=== PATIENT | female | born 1945 | race Caucasian/White ===

== ENCOUNTER → 2016-09-07 | Outpatient (CLI) | payer OTHER ==
[2016-09-07 07:36] LABS: BASO % 0.4 % (0.0-1.0); EOS # 0.2 10*3/uL (0.0-0.4); EOS % 2.1 % (1.0-4.0); HEMATOCRIT 38.1 % (37.0-47.0); HEMOGLOBIN 11.7 g/dl (12.0-16.0); IG # 0.1 10*3/uL (0.0-0.1); LYMPH # 1.2 10*3/uL (1.3-4.4); LYMPH % 10.9 % (27.0-41.0); MEAN CORPUSCULAR HGB 26.4 pg (27.0-31.0); MEAN CORPUSCULAR HGB CONC 30.7 g/dl (33.0-37.0); MEAN PLATELET VOLUME 11.1 fl (9.6-12.3); MONO % 9.2 % (3.0-9.0); NEUT # 8.4 10*3/uL (2.3-7.9); NEUT % 76.3 % (47.0-73.0); PLATELET COUNT AUTOMATED 184 10*3/uL (130-400); RED BLOOD COUNT 4.43 10*6/uL (4.10-5.10); RED CELL DISTRI WIDTH 15.3 % (0-14.5)
[2016-09-07 08:11] LABS: C-REACTIVE PROTEIN 1.09 MG/DL (0-0.3); EST GLOM FILT AFRICAN AMERICAN > 60 ml/min; SGOT/AST 13 IU/L (3-35); SGPT/ALT 18 U/L (12-78)
== END | disposition home or self-care (01) ==
LOC: LAB 07:14
PROVIDERS: Internal Medicine Rheumatology
DX: M05.79 Rheumatoid arthritis with rheumatoid factor of multiple sites without organ or systems involvement (principal); M79.1 Myalgia

== ENCOUNTER → 2016-09-09 | Outpatient (CLI) | payer OTHER | END | disposition home or self-care (01) | LOC: CARD 10:13 | DX: R94.31 Abnormal electrocardiogram [ECG] [EKG] (principal); R60.0 Localized edema ==

== ENCOUNTER → 2016-11-30 | Outpatient (CLI) | payer OTHER ==
[2016-11-30 09:22] LABS: BASO % 0.3 % (0.0-1.0); EOS # 0.1 10*3/uL (0.0-0.4); HEMATOCRIT 26.2 % (37.0-47.0); HEMOGLOBIN 7.7 g/dl (12.0-16.0); IG # 0.1 10*3/uL (0.0-0.1); LYMPH # 0.5 10*3/uL (1.3-4.4); LYMPH % 7.6 % (27.0-41.0); MEAN CELL VOLUME 91.9 fl (81.0-99.0); MEAN CORPUSCULAR HGB CONC 29.4 g/dl (33.0-37.0); MEAN PLATELET VOLUME 10.5 fl (9.6-12.3); MONO # 0.6 10*3/uL (0.1-1.0); MONO % 8.5 % (3.0-9.0); NEUT # 5.6 10*3/uL (2.3-7.9); NEUT % 81.4 % (47.0-73.0); PLATELET COUNT AUTOMATED 159 10*3/uL (130-400); RED BLOOD COUNT 2.85 10*6/uL (4.10-5.10); WHITE BLOOD COUNT 6.8 10*3/uL (4.8-10.8)
[2016-11-30 09:45] LABS: C-REACTIVE PROTEIN 0.44 MG/DL (0-0.3); EST GLOM FILT AFRICAN AMERICAN > 60 ml/min; SGOT/AST 10 IU/L (3-35); SGPT/ALT 11 U/L (12-78)
== END | disposition home or self-care (01) ==
LOC: LAB 08:55
PROVIDERS: Internal Medicine Rheumatology
DX: M05.79 Rheumatoid arthritis with rheumatoid factor of multiple sites without organ or systems involvement (principal); M79.1 Myalgia

== ENCOUNTER → 2016-12-04 | Outpatient (CLI) | payer OTHER ==
[2016-12-04 15:28] LABS: IRON 27 ug/dL (50-170); IRON SATURATION 7 %; UIBC 350 ug/dL (110-365)
== END | disposition home or self-care (01) ==
LOC: LAB 14:49
DX: R71.8 Other abnormality of red blood cells (principal); R76.8 Other specified abnormal immunological findings in serum

== ENCOUNTER → 2016-12-07 | Outpatient (CLI) | payer OTHER | END | disposition home or self-care (01) | LOC: LAB 13:33 | DX: R76.8 Other specified abnormal immunological findings in serum (principal); R71.8 Other abnormality of red blood cells ==

== ENCOUNTER → 2016-12-16 | Outpatient (CLI) | payer OTHER ==
[~2016-12-16] MED LIST: ALENDRONATE SOD35 M1 PO; ATENOLOL25 MG PO; CENTRUM FLAVO100 MCG PO; CINNAMON ALPHA1 EACH PO; CO Q-1010 M1 PO; FLAX SEED OIL1000 M2 PO; GABAPENTIN TAB600 MG PO; METHOTREXATE2.5 M1 PO; OXYBUTYNIN5 MG PO; PREDNISONE5 MG PO; PRINIVIL20 M1 PO; VITAMIN D31000 IU PO
[2016-12-16 08:50] VITALS: BP 106/40
[2016-12-17 08:13] VITALS: BP 100/39
[2016-12-18 08:05] VITALS: BP 105/37
== END | disposition home or self-care (01) ==
LOC: INJECTION 08:00
DX: D50.0 Iron deficiency anemia secondary to blood loss (chronic) (principal)

== ENCOUNTER → 2016-12-23 | Outpatient (CLI) | payer OTHER ==
[~2016-12-23] MED LIST changes: +HYDROCODONE BIT1 T11 PO; +NATURE'S BLEND F1 MG PO
[2016-12-23 10:03] LABS: HEMATOCRIT 30.2 % (37.0-47.0); HEMOGLOBIN 8.4 g/dl (12.0-16.0); MEAN CELL VOLUME 93.2 fl (81.0-99.0); MEAN CORPUSCULAR HGB 25.9 pg (27.0-31.0); MEAN CORPUSCULAR HGB CONC 27.8 g/dl (33.0-37.0); MEAN PLATELET VOLUME 12.1 fl (9.6-12.3); NUCLEATED RED BLOOD CELL 0.3 % (0.0-0.0); PLATELET COUNT AUTOMATED 155 10*3/uL (130-400); RED BLOOD COUNT 3.24 10*6/uL (4.10-5.10); RED CELL DISTRI WIDTH 21.9 % (0-14.5); WHITE BLOOD COUNT 10.3 10*3/uL (4.8-10.8)
[2016-12-23 10:23] LABS: ALBUMIN 3.3 gm/dl (3.1-4.5); ALKALINE PHOSPHATASE 62 U/L (45-117); BILIRUBIN, TOTAL 0.2 mg/dl (0.2-1.0); BUN 17 mg/dl (7-24); C-REACTIVE PROTEIN 1.18 MG/DL (0-0.3); CARBON DIOXIDE 26 mmol/L (21-32); CHLORIDE 107 mmol/L (98-107); EST GLOM FILT AFRICAN AMERICAN > 60 ml/min; GLUCOSE 137 mg/dL (65-99); POTASSIUM 4.2 mmol/L (3.5-5.1); SGOT/AST 10 IU/L (3-35); SGPT/ALT 12 U/L (12-78); SODIUM 142 mmol/L (136-145); TOTAL PROTEIN 6.7 gm/dL (6.4-8.2)
[2016-12-23 10:43] LABS: BASOPHIL # 0.2 10*3/uL (0-0.1); BASOPHILS 2 % (0-1); EOSINOPHIL # 0.1 10*3/uL (0-0.4); EOSINOPHILS 1 % (1-4); HYPOCHROMIA SLIGHT; LYMPHOCYTE # 0.6 10*3/uL (1.3-4.4); MONOCYTE # 0.8 10*3/uL (0.1-1.0); MYELOCYTES 1 % (0-0); NEUTROPHIL # 8.4 10*3/uL (2.3-7.9); NEUTROPHILS 82 % (47-73); PLATELET SUFFICIENCY NORMAL (NORMAL); POLYCHROMASIA SLIGHT; TEAR DROP CELLS FEW; TOTAL CELLS COUNTED 100 #CELLS
== END | disposition home or self-care (01) ==
LOC: LAB 09:06 → US 18:00
PROVIDERS: Internal Medicine
DX: R60.0 Localized edema (principal); D64.9 Anemia, unspecified; I10 Essential (primary) hypertension; M05.79 Rheumatoid arthritis with rheumatoid factor of multiple sites without organ or systems involvement; M79.1 Myalgia

== ENCOUNTER 2016-12-25 23:01 | Emergency (ER) | payer OTHER ==
[~2016-12-25] VITALS: Ht 152.4 cm; Wt 101.6 kg
[2016-12-25 23:42] VITALS: BP 144/57
[2016-12-26 00:51] LABS: BASO % 0.1 % (0.0-1.0); EOS % 0.3 % (1.0-4.0); HEMATOCRIT 30.7 % (37.0-47.0); HEMOGLOBIN 8.8 g/dl (12.0-16.0); IG # 0.1 10*3/uL (0.0-0.1); LYMPH # 0.4 10*3/uL (1.3-4.4); LYMPH % 3.1 % (27.0-41.0); MEAN CELL VOLUME 91.6 fl (81.0-99.0); MEAN CORPUSCULAR HGB 26.3 pg (27.0-31.0); MEAN CORPUSCULAR HGB CONC 28.7 g/dl (33.0-37.0); MEAN PLATELET VOLUME 11.4 fl (9.6-12.3); MONO % 7.5 % (3.0-9.0); NEUT # 11.5 10*3/uL (2.3-7.9); NEUT % 87.9 % (47.0-73.0); PLATELET COUNT AUTOMATED 123 10*3/uL (130-400); RED BLOOD COUNT 3.35 10*6/uL (4.10-5.10); RED CELL DISTRI WIDTH 21.1 % (0-14.5); WHITE BLOOD COUNT 13.1 10*3/uL (4.8-10.8)
[2016-12-26 00:59] LABS: PROTHROMBIN TIME 10.5 SECONDS (9.0-12.4)
[2016-12-26 01:05] LABS: ALBUMIN 3.3 gm/dl (3.1-4.5); ALKALINE PHOSPHATASE 56 U/L (45-117); BILIRUBIN, TOTAL 0.4 mg/dl (0.2-1.0); BUN 11 mg/dl (7-24); CARBON DIOXIDE 23 mmol/L (21-32); CHLORIDE 105 mmol/L (98-107); EST GLOM FILT AFRICAN AMERICAN > 60 ml/min; GLUCOSE 117 mg/dL (65-99); POTASSIUM 4.1 mmol/L (3.5-5.1); SGOT/AST 7 IU/L (3-35); SGPT/ALT 13 U/L (12-78); SODIUM 137 mmol/L (136-145); TOTAL PROTEIN 6.5 gm/dL (6.4-8.2)
== END 2016-12-26 01:54 | disposition home or self-care (01) ==
LOC: ED 23:01
PROVIDERS: Nurse Practitioner Family
DX: K64.8 Other hemorrhoids (principal); Z88.0 Allergy status to penicillin; Z88.1 Allergy status to other antibiotic agents; Z88.8 Allergy status to other drugs, medicaments and biological substances; Z79.899 Other long term (current) drug therapy; Z98.890 Other specified postprocedural states

== ENCOUNTER → 2016-12-25 | Day surgery (SDC) | payer OTHER ==
[2016-12-16 08:25] VITALS: BP 106/40
[~2016-12-25] VITALS: Ht 152.4 cm; Wt 102.5 kg
--- NOTE | ~2016-12-25 | O ---
[place], [place] OPERATIVE NOTE NAME: FAREED DIALLO [facility] #: [id number] UNIT #: [id number] ROOM: DOCTOR: KEVIN FLORES MD BIRTHDATE: [birth year] DOS: 12/25/2016 PREOPERATIVE DIAGNOSIS: Lower gastrointestinal bleed, internal hemorrhoids. POSTOPERATIVE DIAGNOSIS: Lower gastrointestinal bleed, internal hemorrhoids. PROCEDURE: Colonoscopy with Doppler-guided hemorrhoidal artery ligation. SURGEON: Kevin Flores MD MERCHANDISE ADJUSTMENT CLERK: PGY1. ANESTHESIA: MAC. INDICATIONS: This is a 71-year-old lady who presents with lower GI bleed and bleeding internal hemorrhoids, who is here for the above-mentioned procedure. The procedure and its complications were explained to the patient in detail. Complications that were discussed included but were not limited to bleeding, missed lesions, prolonged pain and colon perforation. She agreed to proceed. DESCRIPTION OF PROCEDURE: After identifying the patient, the patient was brought to the endoscopy suite and placed in the left lateral position. After time-out procedure was called, IV sedation was administered and a digital rectal exam was performed. This was within normal limits. An adult colonoscope was now introduced into the anal canal and advanced sequentially into the rectum, sigmoid colon, descending colon, transverse colon and ascending colon up to the cecum. The entire mucosa of the colon was found to be normal. Upon withdrawal, which took approximately 7 minutes, these findings were confirmed, there were internal hemorrhoids, which were noncomplicated, that were visualized on retroflexion of the scope. The scope was withdrawn and the patient was then turned back in to supine position and placed in lithotomy. The parts were then painted and draped in the usual sterile fashion. Doppler-guided hemorrhoidal artery ligation was performed with the help of 2-0 Vicryl at 1, 3, 5, 7, 9, and 11 o'clock positions. Thereafter, the rectal exam was performed, which showed no evidence of any anal hematomas. Local anesthesia was infiltrated in the perianal fashion. A dressing was placed. The patient tolerated the procedure well and was taken to the recovery room in stable fashion. There were no complications. Dr. Kevin Flores, the attending endoscopist, was present throughout the operating case. Based on these findings, the patient is recommended to have another colonoscopy in 10 years or sooner if she has any new symptoms. These findings were discussed with the patient's in the postoperative recovery room and also I will talk to the patient when she sees me for a postoperative visit in the office. [place], [place] OPERATIVE NOTE NAME: DIALLOFAREED UNIT #: [id number] ROOM: DOCTOR: KEVIN FLORES MD BIRTHDATE: [birth year] Kevin Flores MD CM:OPRECORD:OPERATIVE NOTE 1219 KEVIN FLORES MD 12/26/169 interface
[2016-12-25 09:42] VITALS: BP 139/70
[2016-12-25 11:48] VITALS: BP 115/37
[2016-12-25 12:02] VITALS: BP 121/44
[2016-12-25 12:20] VITALS: BP 125/56
== END | disposition home or self-care (01) ==
LOC: SDC 12-21 10:15
DX: K64.8 Other hemorrhoids (principal); K92.2 Gastrointestinal hemorrhage, unspecified; I10 Essential (primary) hypertension; K21.9 Gastro-esophageal reflux disease without esophagitis; Z96.651 Presence of right artificial knee joint; D69.3 Immune thrombocytopenic purpura; Z90.710 Acquired absence of both cervix and uterus; Z83.3 Family history of diabetes mellitus; Z82.49 Family history of ischemic heart disease and other diseases of the circulatory system; Z87.01 Personal history of pneumonia (recurrent)
CPT/HCPCS: 00902; 0249T

== ENCOUNTER → 2017-01-18 | Outpatient (CLI) | payer OTHER ==
[2017-01-18 16:49] LABS: BASO % 0.1 % (0.0-1.0); EOS % 0.1 % (1.0-4.0); HEMATOCRIT 30.1 % (37.0-47.0); IG # 0.3 10*3/uL (0.0-0.1); LYMPH # 0.9 10*3/uL (1.3-4.4); LYMPH % 5.5 % (27.0-41.0); MEAN CELL VOLUME 90.4 fl (81.0-99.0); MEAN CORPUSCULAR HGB CONC 29.9 g/dl (33.0-37.0); MEAN PLATELET VOLUME 10.6 fl (9.6-12.3); MONO # 0.9 10*3/uL (0.1-1.0); MONO % 5.5 % (3.0-9.0); NEUT # 13.6 10*3/uL (2.3-7.9); NEUT % 86.9 % (47.0-73.0); NUCLEATED RED BLOOD CELL 0.1 % (0.0-0.0); PLATELET COUNT AUTOMATED 182 10*3/uL (130-400); RED BLOOD COUNT 3.33 10*6/uL (4.10-5.10); RED CELL DISTRI WIDTH 17.6 % (0-14.5); WHITE BLOOD COUNT 15.6 10*3/uL (4.8-10.8)
== END | disposition home or self-care (01) ==
LOC: LAB 16:33
PROVIDERS: Internal Medicine
DX: K92.1 Melena (principal)

== ENCOUNTER → 2017-02-01 | Outpatient (CLI) | payer OTHER | END | disposition home or self-care (01) | LOC: US 16:09 | DX: R60.0 Localized edema (principal); I77.1 Stricture of artery ==

== ENCOUNTER → 2017-02-04 | Outpatient (CLI) | payer OTHER ==
[~2017-02-04] MED LIST changes: +METHOTREXATE S2.5 M1 PO
== END | disposition home or self-care (01) ==
LOC: LAB 08:56
DX: R60.0 Localized edema (principal)

== ENCOUNTER → 2017-02-10 | Outpatient (CLI) | payer OTHER ==
[2017-02-10 09:12] LABS: BUN 27 mg/dl (7-24); EST GLOM FILT AFRICAN AMERICAN > 60 ml/min
== END | disposition home or self-care (01) ==
LOC: CT 02-08 08:00 → EDSTATUS 02-08 08:00 → LAB 02:43 → CT 09:00
PROVIDERS: Surgery
DX: R19.00 Intra-abdominal and pelvic swelling, mass and lump, unspecified site (principal); D64.9 Anemia, unspecified; M51.36 Other intervertebral disc degeneration, lumbar region; M12.88 Other specific arthropathies, not elsewhere classified, other specified site; K64.9 Unspecified hemorrhoids; Z98.51 Tubal ligation status

== ENCOUNTER → 2017-02-12 | Day surgery (SDC) | payer OTHER ==
[~2017-02-12] VITALS: Ht 152.4 cm; Wt 1.0 kg
[2017-02-12 09:58] VITALS: BP 130/60
[2017-02-12 11:15] VITALS: BP 94/44
[2017-02-12 12:10] VITALS: BP 90/37
[2017-02-12 12:24] VITALS: BP 88/46
[2017-02-12 12:26] VITALS: BP 98/47
[2017-02-12 12:50] VITALS: BP 104/52
== END | disposition home or self-care (01) ==
LOC: CT 02-08 08:00 → SDC 02-08 09:30
DX: D12.5 Benign neoplasm of sigmoid colon (principal); K57.30 Diverticulosis of large intestine without perforation or abscess without bleeding; K64.8 Other hemorrhoids; I10 Essential (primary) hypertension; E11.9 Type 2 diabetes mellitus without complications; M06.9 Rheumatoid arthritis, unspecified; F41.9 Anxiety disorder, unspecified; F32.9 Major depressive disorder, single episode, unspecified; K21.9 Gastro-esophageal reflux disease without esophagitis; E66.01 Morbid (severe) obesity due to excess calories; Z68.44 Body mass index [BMI] 60.0-69.9, adult; Z90.710 Acquired absence of both cervix and uterus; Z90.49 Acquired absence of other specified parts of digestive tract; Z98.890 Other specified postprocedural states; Z96.653 Presence of artificial knee joint, bilateral; Z88.2 Allergy status to sulfonamides; Z88.0 Allergy status to penicillin; Z88.8 Allergy status to other drugs, medicaments and biological substances; Z83.3 Family history of diabetes mellitus; Z82.49 Family history of ischemic heart disease and other diseases of the circulatory system

== ENCOUNTER → 2017-02-18 | Outpatient (CLI) | payer OTHER | END | disposition home or self-care (01) | LOC: US 13:23 | DX: R19.00 Intra-abdominal and pelvic swelling, mass and lump, unspecified site (principal); Z90.710 Acquired absence of both cervix and uterus ==

== ENCOUNTER 2017-03-13 19:10 | Inpatient (IN) | payer OTHER ==
[~2017-03-13] VITALS: Ht 152.4 cm; Wt 91.3 kg
--- NOTE | ~2017-03-13 | EKG ---
[place], [place] ELECTROCARDIOGRAM REPORT NAME: FAREED DIALLO UNIT #: [id number] ROOM: 505 DOCTOR: ALBERT HUDSON MD BIRTHDATE: [birth year] DOS: 03/14/2017 TIME: 1114 hours. Normal sinus rhythm at 80 beats per minute. Nonspecific T-wave changes in chest lead. Consider an old inferior wall myocardial infarction. An abnormal ECG. No previous tracing is available for comparison. ALBERT HUDSON MD CM:EKGRPT:ELECTROCARDIOGRAM REPORT 1740 1901 ALBERT HUDSON MD
--- NOTE | ~2017-03-13 | CON ---
[place], [place] REPORT OF CONSULTATION [id number] UNIT #: [id number] ROOM: 505 DOCTOR: JEFF ORTEGA MD BIRTHDATE: [birth year] DOS: 03/17/2017 ADDENDUM. Addendum to Dr. Tim Hutchison's consultation report. Case has been reviewed. She has presented with lower GI bleed with recurrent bleed, apparently atrial fibrillation and she required Lovenox and Cardizem drip and apparently AFib converted; however, her stress test was positive and there is concern about the above despite the fact that she has nausea sensation. Plan is to proceed with further invasive cardiologic workup, i.e. cardiac catheterization for definitive diagnosis of the stress test positivity. Labs and records have been reviewed and latest data shows basic metabolic panel to have hyperkalemia of 5.8. Her BUN and creatinine within normal. She initially came in with hypokalemia and this has been corrected; therefore, potassium has been on hold today and repeat electrolytes is going to be done tomorrow. Serum ammonia level is 14. Case discussed with the at the bedside. Urine cultures, no active growth. Her BNP was 1600+. Blood cultures, no growth has been noticed. The patient in diapers. PLAN AND DISCUSSION: Awaiting definitive cardiologic final workup and meanwhile, will keep her on PPI on antiemetics and once the data is available, we are going to consider an endoscopy of upper tract. Her CBC is borderline, H and H of 10 and 30 on March 15 and lactic acid normal at the entry time as well as her H and H were 13 and 41 with platelets of 185 at the admission time and her creatinine was 1.14, which has been prerenal with a potassium of 2.1 that has been already corrected. Liver function tests remain normal. We will standby. JEFF ORTEGA MD CM:CONSTR:REPORT OF CONSULTATION 1214 03/17/17 1331 interface
--- NOTE | ~2017-03-13 | EKG ---
[place], [place] ELECTROCARDIOGRAM REPORT NAME: FAREED DIALLO UNIT #: [id number] ROOM: 505 DOCTOR: ALBERT HUDSON MD BIRTHDATE: [birth year] DOS: 03/13/2017 TIME: 1959 hours. Multifocal atrial tachycardia with ventricular rate of 160 beats per minute. Nonspecific ST-T wave changes in chest leads. Left anterior hemiblock. An abnormal ECG. No previous tracing is available for comparison. ALBERT HUDSON MD CM:EKGRPT:ELECTROCARDIOGRAM REPORT 1739 1843 ALBERT HUDSON MD
--- NOTE | ~2017-03-13 | CON ---
[place], [place] REPORT OF CONSULTATION NAME: FAREED DIALLO UNIT #: [id number] ROOM: 505 DOCTOR: JACQUELIN CLINE MD BIRTHDATE: [birth year] DOS: 03/16/2017 CHIEF COMPLAINT: "Oh, I am so confused, I do not know what is going on." HISTORY OF PRESENT ILLNESS: This is a 71-year-old female who is admitted with a significant history of obesity, hypertension, thrombocytopenia, iron deficiency anemia, restless leg syndrome, osteoarthritis, GERD, spondylolisthesis of L4-L5 and significant history of rheumatoid arthritis. The patient apparently is admitted due to ongoing cardiac issues as well and worsening confusion. The patient is aware that she came to the hospital on Wednesday, but does not know what day it is right now. Did discuss this case at length with her who reports that he feels that she got confused at home and mistook another one of her medications for the methotrexate and erroneously took 5 or 6 of that medicine causing the electrolyte imbalance that led to her ultimate confusion at admission here. The patient has not had a previous history of this type of symptom before. MENTAL STATUS: She is alert and oriented to person, place, very approximate to time. Mood seems euthymic. Affect appropriate. There is no debora or hypomania. There are no psychotic symptoms. She does process a little slowly. Short term memory has gaps. DIAGNOSIS: Acute delirium, not otherwise specified. PLAN: At this point, I would just monitor and watch for clearing. I will obtain some additional lab work to rule out other organic issues. I do not think any medication intervention is needed at this time. JACQUELIN CLINE MD CM:CONSTR:REPORT OF CONSULTATION 7 03/16/17 0841 interface
--- NOTE | ~2017-03-13 | CON ---
[place], [place] REPORT OF CONSULTATION NAME: FAREED DIALLO [facility] #: [id number] UNIT #: [id number] ROOM: [facility] DOCTOR: ALBERT HUDSON MD BIRTHDATE: [birth year] DOS: 03/14/2017 HISTORY OF PRESENT ILLNESS: This is a 71-year-old -[place] woman with morbid obesity, history of essential hypertension, idiopathic thrombocytopenia, iron deficiency anemia, restless legs syndrome, osteoarthrosis and arthritis of the hips and knees and GERD syndrome and spondylolisthesis of L4-L5. She has had knee arthroplasty, cholecystectomy, partial hysterectomy and tonsillectomy in the remote past. She was in this hospital about 10 days ago with negative GI bleed attributed to diverticulitis. History was obtained from the daughter. The patient seems being in a daze and a little confused and speech is not quite clear. Normally she is up and about, manages her daily chores; however, over the last 4-5 days, she has been very lethargic, weak and no energy and was a little confused as well. She had some chest pain, details of which are not clear from the patient and she also has shortness of breathing along with generalized weakness. She came to the Emergency Department where she was found to be in atrial fibrillation with a ventricular rate of 160 beats per minute by an ECG. She was started on IV Cardizem drip and was admitted to ICU. She has never smoked cigarettes, does not use alcoholic beverages. HOME MEDICATIONS: Include alendronate 35 mg weekly, atenolol 25 mg daily, calcium carbonate 600 mg 2 tablets daily, cholecalciferol 1000 units daily, flaxseed oil, folic acid, gabapentin 600 mg t.i.d., methotrexate 2.5 mg daily for rheumatoid arthritis, oxybutynin 5 mg daily, prednisone 5 mg daily, and Coenzyme Q10 100 mg daily. PHYSICAL EXAMINATION: GENERAL: This reveals a patient who is morbidly obese. She seems , somewhat confused. Speech is not clear. There is no finger clubbing or thyromegaly. VITAL SIGNS: Pulse is regular at 80 beats per minute, blood pressure 134/54. NECK: JVP is normal. AJR is negative. No bruit in the neck. HEART: There is no cardiomegaly. Auscultation reveals no murmurs. EXTREMITIES: There is 1+ pretibial edema. Pedal pulses were easily appreciated. RESPIRATORY: Breath sounds are diminished because of morbid obesity, no adventitious sounds are present. DIAGNOSTIC STUDIES: An ECG on admission demonstrated AFib with a ventricular rate of 160 beats per minute with nonspecific ST-T wave change in some leads. An ECG done just now demonstrates normal sinus rhythm at 80 beats per minute with low voltage T waves in V5 and V6 and moderate left axis deviation. Potassium on admission was 2.1, magnesium 1.4, creatinine 1.14, BUN 23, albumin 3.5 g/dL. Troponin I is less than 0.01 x 2. Chest x-ray did not demonstrate anything acute. IMPRESSION: This patient has newly diagnosed atrial fibrillation with [place], [place] REPORT OF CONSULTATION NAME: FAREED DIALLO UNIT #: [id number] ROOM: [facility] DOCTOR: ALBERT HUDSON MD BIRTHDATE: [birth year] rapid ventricular rate. She was treated with IV Cardizem drip and with potassium and magnesium supplement and she just put back into normal rhythm now with good rate, blood pressure is fine. Reason for atrial fibrillation is most likely this performed hypokalemia and significant hypomagnesemia. Of course so hypertension, underlying coronary artery disease, perhaps sleep apnea, hypoxia may be contributing to this. RECOMMENDATIONS: This patient had a recent lower GI bleed; therefore, I do not recommend chronic anticoagulation. Potassium and magnesium needs to be kept at a good level, I strongly feel that these 2 metabolic disturbances led to atrial fibrillation. Part of workup for acute atrial fibrillation should be an echocardiogram and a Lexiscan Cardiolite to exclude significant underlying coronary artery disease. I thank you for this consult. ALBERT HUDSON MD CM:CONSTR:REPORT OF CONSULTATION 1125 03/14/17 1448 interface
--- NOTE | ~2017-03-13 | WRIGHTHP ---
[place], [place] PATIENT HISTORY AND PHYSICAL EXAM NAME: FAREED DIALLO [facility] #: [id number] UNIT #: [id number] ROOM: [facility] DOCTOR: NARESH DICKERSON MD BIRTHDATE: [birth year] DOS: 03/14/2017 HISTORY OF PRESENT ILLNESS: The patient has been admitted to the hospital yesterday with history of chest pain and difficulty in breathing and feeling of marked weakness. She came to the Emergency Department from where she was admitted to hospital and was found to be having atrial fibrillation with some congestive heart failure and needed to be admitted to the hospital. The patient is feeling better now. She denies any pain in the chest now and patient was at this time, sleeping comfortably. The patient was last time admitted to the hospital in 03/04/2017. At that time, the patient had lower GI bleeding and she had colonoscopy done and was found to have diverticulitis. The patient also had internal hemorrhoid. The patient has past history of hypertension, idiopathic thrombocytopenia, iron deficiency anemia, restless leg syndrome, osteoarthritis, degenerative joint disease of both hips and knees, GERD syndrome, hemorrhoids, L4-L5 spondylolisthesis with central disk protrusion. PAST SURGICAL HISTORY: The patient has history of total knee arthroplasty, cholecystectomy, partial hysterectomy and tonsillectomy. SOCIAL HISTORY: The patient is and lives very happily. She does not drink, does not smoke. REVIEW OF SYSTEMS: Unremarkable. ALLERGIES: The patient is allergic to SULFA, PENICILLINS and RAGWEED. MEDICATIONS: The patient is taking following medications: Lisinopril 20 mg daily, atenolol 25 mg daily, diltiazem 120 mg daily, Detrol 5 mg twice daily, Lyrica 75 mg twice daily, Lasix 40 mg daily, KCl 20 mEq daily, hydrocodone 5 mg twice daily, glucosamine 500 twice daily, Oyster Shell 1 tablet 3 times daily. PHYSICAL EXAMINATION: VITAL SIGNS: Her blood pressure is 148/60, pulse is 101, respirations 16, temperature 98.3, pulse oximetry is 95%. GENERAL: The patient is conscious, alert and oriented. HEENT: Her ENT examination unremarkable. NECK: No glandular enlargement in the neck. Neck veins are not distended. HEART: Regular, no murmur. LUNGS: Clear. No creps or rhonchi. ABDOMEN: Soft. Liver and spleen not palpable. No area of tenderness. No mass palpated. No edema of leg. NEUROLOGICAL: No neurological deficit observed. Rest of examination is unremarkable. LABORATORY DATA: The patient's lactic acid baseline level 1.9, which is normal. Comprehensive metabolic profile showed glucose 197, creatinine 1.14, GFR 47, sodium 133, potassium 2.1, chloride 85, carbon dioxide 35, calcium 12, magnesium 1.4. Chest x-ray is clear. CBC showed white count 8500, hemoglobin 13.1, hematocrit 41.5, 95% neutrophils, 6%, lymphocytes, 8% . CT of the head, no acute intracranial finding, chronic small vessel ischemic changes. CT of the [place], [place] PATIENT HISTORY AND PHYSICAL EXAM [facility]: [id number] UN[facility] #: [id number] ROOM: [facility] DOCTOR: NARESH DICKERSON MD BIRTHDATE: [birth year] abdomen was normal. Troponin level is 0.25, which is normal. CK-MB and troponin level is also normal. The patient is in normal sinus rhythm now. DIAGNOSES: Atrial fibrillation with arteriosclerotic heart disease, hypertension, dizziness, feeling of marked weakness, osteoarthritis, chronic back pain syndrome, vitamin D deficiency, and neuritis. PLAN OF TREATMENT: The patient will be admitted to ICU and she will be treated with diltiazem drip, continue to hold medication, watch closely. NARESH DICKERSON MD CM:HISPHYS:PATIENT HISTORY AND PHYSICAL EXAMINATION 0 7 NARESH DICKERSON MD 03/14/17957 interface
--- NOTE | ~2017-03-13 | PR ---
[place], [place] PROGRESS NOTE NAME: FAREED DIALLO [facility] #: [id number] UNIT #: [id number] ROOM: 505 DOCTOR: ALBERT HUDSON MD BIRTHDATE: [birth year] DOS: 03/15/2017 SUBJECTIVE: She is sitting in a chair having some upper. She is alert. Her speech is much clear. She seems to be oriented. She complains of shortness of breath, but she is not tachypneic. No cough, fever or chills, any palpitations either. She received quite a bit of potassium supplement yesterday. Potassium was 2.1 on admission. OBJECTIVE: GENERAL: She looks well. She is obese woman. VITAL SIGNS: Pulse is regular at 80. NECK: JVP is normal. EXTREMITIES: Minimal edema of the lower extremities. CARDIOVASCULAR: Auscultation reveals regular heart rate at about 80 beats per minute. LUNGS: Essentially clear, occasional crackle is noted, however. IMPRESSION: She had atrial fibrillation with rapid ventricular rate. This was most likely induced by profound hypokalemia and significant hypomagnesemia. This was being supplemented, however, potassium is still 3.4 and magnesium has dropped to 1.2. RECOMMENDATIONS: She needs higher doses of oral potassium and magnesium supplementation. I would prefer to keep magnesium around 2 and potassium close to 4 to avoid recurrence of atrial fibrillation. I discussed my findings within family members. ALBERT HUDSON MD CM:PNTRANS 04 35 ALBERT HUDSON MD 03/15/172236 interface
--- NOTE | ~2017-03-13 | CON ---
[place], [place] REPORT OF CONSULTATION NAME: FAREED DIALLO [facility] #: [id number] UNIT #: [id number] ROOM: 505 DOCTOR: SONIA SAMPSON ED.D (JAYSHREE) BIRTHDATE: [birth year] DOS: HISTORY OF PRESENT ILLNESS: The patient is a 71-year-old female referred by Dr. Gordillo and Dr. Harris for evaluation of her depression. At the present time, this patient is on the Fifth floor at [facility]. She is and has 3 children. 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 Her family physician is Dr. Gordillo and her medical history is pertinent for rheumatoid arthritis and altered mental status along with depression. Her medications include methotrexate, calcium, prednisone, atenolol, and gabapentin. This patient denies any substance abuse issues. She was awake, alert and oriented in all three spheres. She denies any suicidal ideation or plan and did not appear to get any active auditory or visual hallucinations. Her short and long-term memory appeared to be intact. Her insight, judgment and concentration are fair. The patient was referred because she was extremely anxious and depressed. She was extremely fearful of dying and is having a great deal of difficulty coping with multiple issues in her life, especially her health. She is very worried about her rheumatoid arthritis. In my opinion, this patient would benefit from antidepressant along with outpatient psychotherapy. She did agree to go to counseling once she is discharged. I did recommend to Dr. Gordillo's residence that she would benefit from antidepressants. DIAGNOSES: Major depressive disorder, single episode. RECOMMENDATIONS: In my opinion, this patient would benefit from outpatient psychotherapy and antidepressant medications. Thank you very much for this consult. SONIA SAMPSON ED.D CM:CONSTR:REPORT OF CONSULTATION 171 03/17/171920 interface
--- NOTE | ~2017-03-13 | PR ---
[place], [place] PROGRESS NOTE NAME: FAREED DIALLO UNIT #: [id number] ROOM: 505 DOCTOR: CUATE BLACK MD BIRTHDATE: [birth year] DOS: 03/16/2017 24-hour events noted. Discussed with the nursing staff. SUBJECTIVE: The patient was seen by Dr. Brunson. REVIEW OF SYSTEMS: As per HPI on 01-21 system review. Denies any chest discomfort, no shortness of breath, no GI or issues. No neurological issues. No psychological issues. OBJECTIVE: VITAL SIGNS: Blood pressure is excellent at 124/53. Heart rate is very well controlled to be 63. Atrial fibrillation with a controlled ventricular response. GENERAL: She is very comfortable, not in any distress. NECK: Supple, no JVD. LUNGS: Diminished air entry. HEART: Sounds are irregularly irregular. ABDOMEN: Soft, nontender. NEUROLOGIC: Appears to be stable. Echocardiogram reviewed, showed an excellent ejection fraction with diastolic dysfunction. Potassium, the last one was 3.4 and today the hemoglobin is 11.1, hematocrit 35.4, potassium is significantly improved to be 4.9, magnesium is also significantly improved to 1.9. IMPRESSION: Atrial fibrillation, rate is very well controlled at this point. Electrolytes have been improved, diastolic heart failure is significantly improved. Ejection fraction is well controlled. The patient is not on anticoagulation because of the history of gastrointestinal bleed as per Dr. Brunson. PLAN: Continue the present medications, which includes arthritic medication with methotrexate, atenolol 25 daily, diltiazem drip, which could be discontinued if the rate is controlled and we will follow up, probably consider to put him on at least a baby aspirin if there is no contraindication. [place], [place] PROGRESS NOTE NAME: IMANIFAREED Murillo UNIT #: [id number] ROOM: 505 DOCTOR: CUATE BLACK MD BIRTHDATE: [birth year] CUATE BLACK MD CM:PNTRANS 9 7 CUATE BLACK MD 03/16/17 0808 interface
[2017-03-13 19:25] VITALS: BP 157/70
[2017-03-13 20:18] LABS: HEMATOCRIT 41.5 % (37.0-47.0); HEMOGLOBIN 13.1 g/dl (12.0-16.0); MEAN CELL VOLUME 80.6 fl (81.0-99.0); MEAN CORPUSCULAR HGB 25.4 pg (27.0-31.0); MEAN CORPUSCULAR HGB CONC 31.6 g/dl (33.0-37.0); MEAN PLATELET VOLUME 11.1 fl (9.6-12.3); PLATELET COUNT AUTOMATED 185 10*3/uL (130-400); RED BLOOD COUNT 5.15 10*6/uL (4.10-5.10); WHITE BLOOD COUNT 8.5 10*3/uL (4.8-10.8)
[2017-03-13 20:24] VITALS: BP 163/87
[2017-03-13 20:39] LABS: ALBUMIN 3.5 gm/dl (3.1-4.5); ALKALINE PHOSPHATASE 45 U/L (45-117); BILIRUBIN, TOTAL 0.8 mg/dl (0.2-1.0); BUN 23 mg/dl (7-24); CARBON DIOXIDE 35 mmol/L (21-32); CHLORIDE 85 mmol/L (98-107); EST GLOM FILT AFRICAN AMERICAN 57 ml/min; GLUCOSE 197 mg/dL (65-99); MAGNESIUM 1.4 mg/dL (1.5-2.1); SGOT/AST 16 IU/L (3-35); SGPT/ALT 16 U/L (12-78); SODIUM 133 mmol/L (136-145); TOTAL PROTEIN 7.5 gm/dL (6.4-8.2)
[2017-03-13 20:40] LABS: TROPONIN I < 0.015 ng/ml (<0.045)
[2017-03-13 20:41] VITALS: BP 146/77
[2017-03-13 20:41] LABS: POTASSIUM 2.1 mmol/L (3.5-5.1)
[2017-03-13 20:51] LABS: LYMPHOCYTE # 0.5 10*3/uL (1.3-4.4); NEUTROPHILS 94 % (47-73); POLYCHROMASIA SLIGHT; TOTAL CELLS COUNTED 100 #CELLS
[2017-03-13 20:55] LABS: HYPOCHROMIA SLIGHT; PLATELET SUFFICIENCY NORMAL (NORMAL)
[2017-03-13 21:00] VITALS: BP 164/81
[2017-03-13 21:54] LABS: BILIRUBIN 1+ (NEGATIVE); BLOOD 1+ (NEGATIVE); CLARITY CLEAR (CLEAR); COLOR YELLOW (YELLOW); GLUCOSE 2+ (NEGATIVE); KETONE NEGATIVE (NEGATIVE); LEUKO ESTERASE NEGATIVE (NEGATIVE); NITRITE NEGATIVE (NEGATIVE); PH 5.5 (5.0-9.0); PROTEIN 1+ (NEGATIVE); SPECIFIC GRAVITY >= 1.030 (1.005-1.030); UROBILINOGEN 0.2 E.U./dl (0.2-1.0)
[2017-03-13 22:00] LABS: URINE REFLEX COMMENT YES (NO)
[2017-03-13 22:04] LABS: HYALINE CAST 51-100
[2017-03-13 22:05] LABS: BACTERIA 1+
[2017-03-13 22:06] VITALS: BP 151/71
[2017-03-13 22:40] VITALS: BP 131/62
[2017-03-14] VITALS (11 sets, daily range): BP systolic 102–148; BP diastolic 32–72
[2017-03-14] MEDS ORDERED: VITAMIN D31000 IU PO (01:24)
[2017-03-14] MEDS ORDERED: CALCIUM600 M2 PO (01:26)
[2017-03-14] MEDS ORDERED: CO Q10100 MG PO (01:27)
[2017-03-14] MEDS ORDERED: FLAX SEED OIL1000 M2 PO (01:31)
[2017-03-14 06:10] LABS: CKMB 1.2 ng/ml (0.5-3.6); THYROID STIM HORMONE (HS) 0.492 uIU/ml (0.358-4.75)
[2017-03-14 11:54] LABS: MAGNESIUM 1.9 mg/dL (1.5-2.1)
[2017-03-14 11:56] LABS: POTASSIUM 2.4 mmol/L (3.5-5.1)
[2017-03-14 12:03] LABS: CKMB 1.2 ng/ml (0.5-3.6); CPK 20 U/L (26-192); TROPONIN I < 0.015 ng/ml (<0.045)
[2017-03-14 18:25] LABS: CKMB 1.1 ng/ml (0.5-3.6); CPK 31 U/L (26-192); TROPONIN I < 0.015 ng/ml (<0.045)
[2017-03-15] VITALS (8 sets, daily range): BP systolic 92–122; BP diastolic 35–68
[2017-03-15 06:50] LABS: BASO % 0.4 % (0.0-1.0); EOS # 0.1 10*3/uL (0.0-0.4); EOS % 1.8 % (1.0-4.0); HEMATOCRIT 32.6 % (37.0-47.0); HEMOGLOBIN 10.1 g/dl (12.0-16.0); LYMPH # 1.1 10*3/uL (1.3-4.4); LYMPH % 21.8 % (27.0-41.0); MEAN CELL VOLUME 82.5 fl (81.0-99.0); MEAN CORPUSCULAR HGB 25.6 pg (27.0-31.0); MEAN PLATELET VOLUME 11.7 fl (9.6-12.3); MONO # 0.3 10*3/uL (0.1-1.0); NEUT # 3.5 10*3/uL (2.3-7.9); NEUT % 70.2 % (47.0-73.0); PLATELET COUNT AUTOMATED 122 10*3/uL (130-400); RED BLOOD COUNT 3.95 10*6/uL (4.10-5.10); RED CELL DISTRI WIDTH 15.5 % (0-14.5)
[2017-03-15 07:01] LABS: CARBON DIOXIDE 32 mmol/L (21-32); CHLORIDE 95 mmol/L (98-107); EST GLOM FILT AFRICAN AMERICAN > 60 ml/min; GLUCOSE 90 mg/dL (65-99); MAGNESIUM 1.2 mg/dL (1.5-2.1); PHOSPHOROUS 1.8 mg/dL (2.5-4.9)
[2017-03-15 07:16] LABS: SODIUM 134 mmol/L (136-145)
[2017-03-15 07:17] LABS: BUN 12 mg/dl (7-24); POTASSIUM 3.4 mmol/L (3.5-5.1)
[2017-03-16] VITALS: BP 124/53
[2017-03-16 06:12] LABS: BUN 10 mg/dl (7-24); CARBON DIOXIDE 30 mmol/L (21-32); CHLORIDE 103 mmol/L (98-107); EST GLOM FILT AFRICAN AMERICAN > 60 ml/min; GLUCOSE 100 mg/dL (65-99); MAGNESIUM 1.9 mg/dL (1.5-2.1)
[2017-03-16 06:15] LABS: BASO % 0.2 % (0.0-1.0); EOS # 0.1 10*3/uL (0.0-0.4); EOS % 1.7 % (1.0-4.0); HEMATOCRIT 35.4 % (37.0-47.0); HEMOGLOBIN 11.1 g/dl (12.0-16.0); IG # 0.1 10*3/uL (0.0-0.1); LYMPH # 0.8 10*3/uL (1.3-4.4); LYMPH % 17.6 % (27.0-41.0); MEAN CELL VOLUME 83.5 fl (81.0-99.0); MEAN CORPUSCULAR HGB 26.2 pg (27.0-31.0); MEAN CORPUSCULAR HGB CONC 31.4 g/dl (33.0-37.0); MEAN PLATELET VOLUME 11.2 fl (9.6-12.3); MONO # 0.4 10*3/uL (0.1-1.0); MONO % 8.1 % (3.0-9.0); NEUT # 3.3 10*3/uL (2.3-7.9); NEUT % 71.3 % (47.0-73.0); PLATELET COUNT AUTOMATED 148 10*3/uL (130-400); RED BLOOD COUNT 4.24 10*6/uL (4.10-5.10); RED CELL DISTRI WIDTH 15.6 % (0-14.5); WHITE BLOOD COUNT 4.6 10*3/uL (4.8-10.8)
[2017-03-16 06:28] LABS: SODIUM 139 mmol/L (136-145)
[2017-03-16 06:30] LABS: POTASSIUM 4.9 mmol/L (3.5-5.1)
[2017-03-16 08:00] VITALS: BP 126/49
[2017-03-16 12:00] VITALS: BP 137/51
[2017-03-16 16:00] VITALS: BP 127/51
[2017-03-16 20:00] VITALS: BP 140/56
[2017-03-17] VITALS: BP 140/50
[2017-03-17 04:00] VITALS: BP 120/62
[2017-03-17 06:25] LABS: HEMATOCRIT 34.9 % (37.0-47.0); HEMOGLOBIN 11.2 g/dl (12.0-16.0); MEAN CELL VOLUME 83.1 fl (81.0-99.0); MEAN CORPUSCULAR HGB 26.7 pg (27.0-31.0); MEAN CORPUSCULAR HGB CONC 32.1 g/dl (33.0-37.0); MEAN PLATELET VOLUME 11.5 fl (9.6-12.3); NUCLEATED RED BLOOD CELL 0.5 % (0.0-0.0); PLATELET COUNT AUTOMATED 132 10*3/uL (130-400); RED CELL DISTRI WIDTH 16.2 % (0-14.5); WHITE BLOOD COUNT 5.8 10*3/uL (4.8-10.8)
[2017-03-17 06:54] LABS: BUN 11 mg/dl (7-24); CARBON DIOXIDE 20 mmol/L (21-32); CHLORIDE 110 mmol/L (98-107); EST GLOM FILT AFRICAN AMERICAN > 60 ml/min; GLUCOSE 91 mg/dL (65-99); POTASSIUM 5.8 mmol/L (3.5-5.1); SODIUM 137 mmol/L (136-145)
[2017-03-17 07:10] LABS: EOSINOPHIL # 0.2 10*3/uL (0-0.4); EOSINOPHILS 4 % (1-4); LYMPHOCYTE # 1.6 10*3/uL (1.3-4.4); MONOCYTE # 0.2 10*3/uL (0.1-1.0); NEUTROPHIL # 3.7 10*3/uL (2.3-7.9); NEUTROPHILS 64 % (47-73); PLATELET SUFFICIENCY NORMAL (NORMAL); TEAR DROP CELLS FEW; TOTAL CELLS COUNTED 100 #CELLS
[2017-03-17 08:00] VITALS: BP 140/57
[2017-03-17 12:00] VITALS: BP 133/64
[2017-03-17] MEDS ORDERED: PANTOPRAZOLE SO40 MG PO (14:04)
[2017-03-17 16:00] VITALS: BP 124/54
[2017-03-17 20:00] VITALS: BP 131/51
[2017-03-18] VITALS: BP 132/68; BP 154/64
[2017-03-18 06:52] LABS: BASO % 0.4 % (0.0-1.0); EOS # 0.2 10*3/uL (0.0-0.4); HEMATOCRIT 38.6 % (37.0-47.0); IG # 0.2 10*3/uL (0.0-0.1); LYMPH # 1.1 10*3/uL (1.3-4.4); LYMPH % 13.2 % (27.0-41.0); MEAN CORPUSCULAR HGB 26.4 pg (27.0-31.0); MEAN CORPUSCULAR HGB CONC 31.1 g/dl (33.0-37.0); MEAN PLATELET VOLUME 11.8 fl (9.6-12.3); MONO # 0.7 10*3/uL (0.1-1.0); MONO % 8.7 % (3.0-9.0); NEUT # 5.9 10*3/uL (2.3-7.9); NEUT % 72.7 % (47.0-73.0); PLATELET COUNT AUTOMATED 132 10*3/uL (130-400); RED BLOOD COUNT 4.54 10*6/uL (4.10-5.10); RED CELL DISTRI WIDTH 16.5 % (0-14.5); WHITE BLOOD COUNT 8.1 10*3/uL (4.8-10.8)
[2017-03-18 07:27] LABS: BUN 13 mg/dl (7-24); CARBON DIOXIDE 23 mmol/L (21-32); CHLORIDE 109 mmol/L (98-107); EST GLOM FILT AFRICAN AMERICAN > 60 ml/min; GLUCOSE 99 mg/dL (65-99); POTASSIUM 4.9 mmol/L (3.5-5.1); SODIUM 140 mmol/L (136-145)
[2017-03-18] MEDS ORDERED: CELEXA10 MG PO (15:52)
== END 2017-03-18 07:52 | disposition other institution (70) | DRG 683 ==
LOC: ED 19:10 → ICCU 23:24 → EDHOLD 23:24 → 5E 23:24 → ICCU 23:34 → 5E 03-15 16:25
PROVIDERS: Emergency Medicine Emergency Medical Services; Internal Medicine; Internal Medicine Cardiovascular Disease
PROC: 3E073KZ Introduction of Other Diagnostic Substance into Coronary Artery, Percutaneous Approach (ICD-10-PCS; principal; 2017-03-16)
PROC: 3E033HZ Introduction of Radioactive Substance into Peripheral Vein, Percutaneous Approach (ICD-10-PCS; principal; 2017-03-16)
PROC: 4A02XM4 Measurement of Cardiac Total Activity, External Approach (ICD-10-PCS; principal; 2017-03-16)
DX: N17.9 Acute kidney failure, unspecified (principal); I50.32 Chronic diastolic (congestive) heart failure; E87.8 Other disorders of electrolyte and fluid balance, not elsewhere classified; I11.0 Hypertensive heart disease with heart failure; I95.9 Hypotension, unspecified; D69.6 Thrombocytopenia, unspecified; E87.1 Hypo-osmolality and hyponatremia; I48.91 Unspecified atrial fibrillation; E83.42 Hypomagnesemia; E87.6 Hypokalemia; M79.1 Myalgia; M06.9 Rheumatoid arthritis, unspecified; M81.0 Age-related osteoporosis without current pathological fracture; M79.2 Neuralgia and neuritis, unspecified; E53.8 Deficiency of other specified B group vitamins; D72.810 Lymphocytopenia; E83.39 Other disorders of phosphorus metabolism; E66.9 Obesity, unspecified; F32.9 Major depressive disorder, single episode, unspecified; G25.81 Restless legs syndrome; M17.0 Bilateral primary osteoarthritis of knee; M16.0 Bilateral primary osteoarthritis of hip; K21.9 Gastro-esophageal reflux disease without esophagitis; I25.10 Atherosclerotic heart disease of native coronary artery without angina pectoris; G89.4 Chronic pain syndrome; M54.9 Dorsalgia, unspecified; Z96.653 Presence of artificial knee joint, bilateral; R41.0 Disorientation, unspecified; E83.52 Hypercalcemia; R82.71 Bacteriuria; E11.9 Type 2 diabetes mellitus without complications; Z88.8 Allergy status to other drugs, medicaments and biological substances; Z88.0 Allergy status to penicillin; Z88.2 Allergy status to sulfonamides; Z88.1 Allergy status to other antibiotic agents; Z91.048 Other nonmedicinal substance allergy status; Z90.711 Acquired absence of uterus with remaining cervical stump; Z90.49 Acquired absence of other specified parts of digestive tract; Z83.3 Family history of diabetes mellitus; Z82.49 Family history of ischemic heart disease and other diseases of the circulatory system; Z79.899 Other long term (current) drug therapy; Z68.33 Body mass index [BMI] 33.0-33.9, adult

== ENCOUNTER 2017-03-18 14:54 | Inpatient (IN) | payer OTHER ==
[~2017-03-18] VITALS: Ht 152.4 cm; Wt 89.9 kg
--- NOTE | ~2017-03-18 | CON ---
[place], [place] REPORT OF CONSULTATION NAME: FAREED DIALLO UNIT #: [id number] ROOM: 512 DOCTOR: JACQUELIN CLINE MD BIRTHDATE: [birth year] DOS: 03/20/2017 CHIEF COMPLAINT: "I am still so depressed, but I have to learn to do for myself." HISTORY OF PRESENT ILLNESS: This is a 71-year-old white female who is readmitted to the [facility] fifth floor, recently had been transferred to [place] for stress test and cardiac catheterization, then has now returned back to [facility]. The patient had had an altered mental status and in the course of this evaluation did note that she had been feeling increasingly depressed and despondent for several months. She reports poor sleep with difficulty falling asleep, sleep continuity disturbance, early learning teacher awakening, anergia, anhedonia, hopeless, helpless feelings, crying spells, and inability to cope. Most recently, she was seen by Dr. Tim Hathaway, psychologist, who had suggested Celexa. She did report last night that it still took her a rather lengthy time to fall asleep and she tossed and turned throughout the night. MENTAL STATUS: She is alert and oriented with mild time gaps. Mood does seem to be overwhelmingly depressed. She is rather distraught and despondent. Affect is flat and constricted. There are no symptoms suggestive of hypomania or debora. There are no auditory or visual hallucinations. No delusions, no paranoia. Memory is relatively fully intact. DIAGNOSIS: Major depression, recurrent. PLAN: I will go ahead and discontinue the Celexa. She had only been on it for one day. I would rather use Remeron. We can adjust the dose accordingly depending on which symptom she has. I will start her on the low dose of ____ mg at bedtime as this should give her the maximum sedation and allow her to sleep soundly throughout the night. I do agree with Dr. Hathaway that she should follow up with an outpatient provider that also includes a counselor to provide psychotherapy. JACQUELIN CLINE MD CM:CONSTR:REPORT OF CONSULTATION 0921 03/20/17 1343 interface
--- NOTE | ~2017-03-18 | CON ---
[place], [place] REPORT OF CONSULTATION NAME: FAREED DIALLO [facility] #: [id number] UNIT #: [id number] ROOM: 512 DOCTOR: SONIA SAMPSON ED.D (JAYSHREE) BIRTHDATE: [birth year] DOS: 03/19/2017 HISTORY OF PRESENT ILLNESS: The patient is a 71-year-old female referred for reevaluation of her depression. At the present time, she is on the 5th floor at [facility]. She was recently transferred to [facility] in [place], [place] for stress test and catheterization. She then returned to [facility]. She is and has 3 children. Her family physician is Dr. Kwok and her medical history is pertinent for rheumatoid arthritis, major depressive disorder, GERD, degenerative joint disease, iron deficiency anemia, neuropathy and osteoporosis. Her medications include Celexa, vitamin D3, gabapentin, omeprazole and prednisone. She denies any substance abuse issues. This patient is awake, alert and oriented in all 3 spheres, but was extremely depressed. She denies any suicidal ideation or plan. She did not appear to be having any active auditory or visual hallucinations or delusional thoughts. Short and long-term memory are intact. Her insight, judgment and concentration are fair. This patient continues to be quite depressed. I did start her on Celexa, but it will take several weeks for it to become active. She is going to go to skilled care for rehabilitation, and at that point, in my opinion, she will need psychological services including counseling and pharmacotherapy. I did speak with her family at her request and indicated she has been depressed for a while and her depression has been worsening recently. DIAGNOSIS: Major depressive disorder, recurrent. RECOMMENDATIONS: 1. The patient should continue on her antidepressant and possibly some nonaddicting medications for anxiety. 2. This patient should follow up with psychotherapy once she is at the senior care facility. Thank you very much for this consultation. SONIA SAMPSON ED.D CM:CONSTR:REPORT OF CONSULTATION 1056 03/19/17 1352 interface CARMEN KWOK MD
[~2017-03-18 14:54] MED LIST changes: +CALCIUM600 M2 PO; +CO Q10100 MG PO; +PANTOPRAZOLE SO40 MG PO
[2017-03-18] MEDS ORDERED: CELEXA10 MG PO (15:52)
[2017-03-18 16:00] VITALS: BP 102/43
[2017-03-18 20:00] VITALS: BP 112/52
[2017-03-19] VITALS: BP 152/79
[2017-03-19 06:10] LABS: BASO % 0.4 % (0.0-1.0); EOS # 0.1 10*3/uL (0.0-0.4); EOS % 1.9 % (1.0-4.0); HEMATOCRIT 35.1 % (37.0-47.0); HEMOGLOBIN 10.7 g/dl (12.0-16.0); LYMPH # 0.8 10*3/uL (1.3-4.4); LYMPH % 14.6 % (27.0-41.0); MEAN CELL VOLUME 83.4 fl (81.0-99.0); MEAN CORPUSCULAR HGB 25.4 pg (27.0-31.0); MEAN CORPUSCULAR HGB CONC 30.5 g/dl (33.0-37.0); MEAN PLATELET VOLUME 11.3 fl (9.6-12.3); MONO # 0.7 10*3/uL (0.1-1.0); MONO % 12.6 % (3.0-9.0); NEUT # 3.8 10*3/uL (2.3-7.9); NEUT % 69.8 % (47.0-73.0); PLATELET COUNT AUTOMATED 116 10*3/uL (130-400); RED BLOOD COUNT 4.21 10*6/uL (4.10-5.10); RED CELL DISTRI WIDTH 16.2 % (0-14.5); WHITE BLOOD COUNT 5.4 10*3/uL (4.8-10.8)
[2017-03-19 06:11] LABS: BUN 12 mg/dl (7-24); CARBON DIOXIDE 22 mmol/L (21-32); CHLORIDE 110 mmol/L (98-107); EST GLOM FILT AFRICAN AMERICAN > 60 ml/min; GLUCOSE 111 mg/dL (65-99); MAGNESIUM 1.5 mg/dL (1.5-2.1); PHOSPHOROUS 2.5 mg/dL (2.5-4.9); POTASSIUM 3.8 mmol/L (3.5-5.1); SODIUM 139 mmol/L (136-145)
[2017-03-19 08:00] VITALS: BP 158/66
[2017-03-19 12:00] VITALS: BP 144/61
[2017-03-19 16:00] VITALS: BP 135/57
[2017-03-19 20:00] VITALS: BP 119/50
[2017-03-20] VITALS: BP 138/55
[2017-03-20 07:11] LABS: BASO % 0.2 % (0.0-1.0); EOS % 0.7 % (1.0-4.0); HEMATOCRIT 32.5 % (37.0-47.0); HEMOGLOBIN 10.1 g/dl (12.0-16.0); LYMPH # 0.8 10*3/uL (1.3-4.4); LYMPH % 12.9 % (27.0-41.0); MEAN CELL VOLUME 82.3 fl (81.0-99.0); MEAN CORPUSCULAR HGB 25.6 pg (27.0-31.0); MEAN CORPUSCULAR HGB CONC 31.1 g/dl (33.0-37.0); MEAN PLATELET VOLUME 11.7 fl (9.6-12.3); MONO # 0.7 10*3/uL (0.1-1.0); MONO % 11.5 % (3.0-9.0); NEUT # 4.3 10*3/uL (2.3-7.9); PLATELET COUNT AUTOMATED 126 10*3/uL (130-400); RED BLOOD COUNT 3.95 10*6/uL (4.10-5.10); RED CELL DISTRI WIDTH 15.8 % (0-14.5); WHITE BLOOD COUNT 5.8 10*3/uL (4.8-10.8)
[2017-03-20 07:39] LABS: BUN 9 mg/dl (7-24); CARBON DIOXIDE 23 mmol/L (21-32); CHLORIDE 107 mmol/L (98-107); EST GLOM FILT AFRICAN AMERICAN > 60 ml/min; GLUCOSE 112 mg/dL (65-99); POTASSIUM 3.4 mmol/L (3.5-5.1); SODIUM 138 mmol/L (136-145)
[2017-03-20 08:09] VITALS: BP 150/68
[2017-03-20 12:32] VITALS: BP 144/73
[2017-03-20 16:00] VITALS: BP 142/95
[2017-03-20 20:00] VITALS: BP 149/59
[2017-03-21] VITALS: BP 147/71
[2017-03-21 07:17] LABS: BUN 8 mg/dl (7-24); CARBON DIOXIDE 23 mmol/L (21-32); CHLORIDE 109 mmol/L (98-107); EST GLOM FILT AFRICAN AMERICAN > 60 ml/min; GLUCOSE 100 mg/dL (65-99); POTASSIUM 3.7 mmol/L (3.5-5.1); SODIUM 139 mmol/L (136-145)
[2017-03-21 08:00] VITALS: BP 140/62
[2017-03-21 12:00] VITALS: BP 152/75
[2017-03-21 16:00] VITALS: BP 130/50
[2017-03-21 20:00] VITALS: BP 141/61
[2017-03-22] VITALS: BP 145/64
[2017-03-22 08:00] VITALS: BP 140/66
[2017-03-22] MEDS ORDERED: MIRTAZAPINE15 M2 PO (13:36)
[2017-03-22 14:20] VITALS: BP 170/70
[2017-03-22] MEDS ORDERED: Lopressor25 MG PO (14:22)
== END 2017-03-22 15:02 | disposition other institution (70) | DRG 880 ==
LOC: 5E 14:54
PROVIDERS: Family Medicine; Internal Medicine
DX: F41.9 Anxiety disorder, unspecified (principal); E87.8 Other disorders of electrolyte and fluid balance, not elsewhere classified; D69.6 Thrombocytopenia, unspecified; F33.9 Major depressive disorder, recurrent, unspecified; G62.9 Polyneuropathy, unspecified; D64.9 Anemia, unspecified; I50.9 Heart failure, unspecified; I11.0 Hypertensive heart disease with heart failure; I48.0 Paroxysmal atrial fibrillation; G25.81 Restless legs syndrome; R53.1 Weakness; M79.1 Myalgia; R73.9 Hyperglycemia, unspecified; M81.0 Age-related osteoporosis without current pathological fracture; M06.9 Rheumatoid arthritis, unspecified; M15.0 Primary generalized (osteo)arthritis; Z96.659 Presence of unspecified artificial knee joint; K21.9 Gastro-esophageal reflux disease without esophagitis; K64.8 Other hemorrhoids; M43.16 Spondylolisthesis, lumbar region; Z90.49 Acquired absence of other specified parts of digestive tract; Z88.0 Allergy status to penicillin; Z88.1 Allergy status to other antibiotic agents; Z88.2 Allergy status to sulfonamides; Z88.8 Allergy status to other drugs, medicaments and biological substances; Z79.899 Other long term (current) drug therapy

== ENCOUNTER → 2017-04-27 | Outpatient (CLI) | payer OTHER ==
[~2017-04-27] MED LIST changes: +CELEXA10 MG PO; +Lopressor25 MG PO; +MIRTAZAPINE15 M2 PO
== END | disposition home or self-care (01) ==
LOC: US 07:23
DX: K76.0 Fatty (change of) liver, not elsewhere classified (principal); Z90.710 Acquired absence of both cervix and uterus; Z90.49 Acquired absence of other specified parts of digestive tract

== ENCOUNTER → 2017-05-12 | Outpatient (CLI) | payer OTHER ==
[2017-05-12 11:20] LABS: HEMATOCRIT 40.1 % (37.0-47.0); HEMOGLOBIN 12.7 g/dl (12.0-16.0); MEAN CORPUSCULAR HGB 26.3 pg (27.0-31.0); MEAN CORPUSCULAR HGB CONC 31.7 g/dl (33.0-37.0); MEAN PLATELET VOLUME 11.6 fl (9.6-12.3); PLATELET COUNT AUTOMATED 174 10*3/uL (130-400); RED BLOOD COUNT 4.83 10*6/uL (4.10-5.10); RED CELL DISTRI WIDTH 17.8 % (0-14.5); WHITE BLOOD COUNT 12.6 10*3/uL (4.8-10.8)
[2017-05-12 11:41] LABS: PLATELET SUFFICIENCY NORMAL (NORMAL); TOTAL CELLS COUNTED 100 #CELLS
[2017-05-12 11:49] LABS: BUN 17 mg/dl (7-24); CHLORIDE 109 mmol/L (98-107); CREATININE 0.49 mg/dL (0.55-1.02); POTASSIUM 4.3 mmol/L (3.5-5.1); SGOT/AST 8 IU/L (3-35); SGPT/ALT 20 U/L (12-78); SODIUM 139 mmol/L (136-145)
== END | disposition home or self-care (01) ==
LOC: LAB 10:39
PROVIDERS: Internal Medicine
DX: I10 Essential (primary) hypertension (principal); M05.79 Rheumatoid arthritis with rheumatoid factor of multiple sites without organ or systems involvement

== ENCOUNTER → 2017-06-29 | Outpatient (CLI) | payer OTHER ==
[2017-06-29 11:29] LABS: BASO % 0.3 % (0.0-1.0); EOS # 0.2 10*3/uL (0.0-0.4); EOS % 2.1 % (1.0-4.0); HEMATOCRIT 42.2 % (37.0-47.0); HEMOGLOBIN 13.6 g/dl (12.0-16.0); LYMPH # 0.7 10*3/uL (1.3-4.4); LYMPH % 6.5 % (27.0-41.0); MEAN CELL VOLUME 85.1 fl (81.0-99.0); MEAN CORPUSCULAR HGB 27.4 pg (27.0-31.0); MEAN CORPUSCULAR HGB CONC 32.2 g/dl (33.0-37.0); MEAN PLATELET VOLUME 11.1 fl (9.6-12.3); MONO # 0.8 10*3/uL (0.1-1.0); MONO % 7.5 % (3.0-9.0); NEUT # 8.4 10*3/uL (2.3-7.9); NEUT % 82.4 % (47.0-73.0); PLATELET COUNT AUTOMATED 175 10*3/uL (130-400); RED BLOOD COUNT 4.96 10*6/uL (4.10-5.10); RED CELL DISTRI WIDTH 15.8 % (0-14.5); WHITE BLOOD COUNT 10.1 10*3/uL (4.8-10.8)
[2017-06-29 11:48] LABS: BUN 19 mg/dl (7-24); CHLORIDE 108 mmol/L (98-107); CREATININE 0.57 mg/dL (0.55-1.02); POTASSIUM 4.1 mmol/L (3.5-5.1); SGOT/AST 19 IU/L (3-35); SGPT/ALT 26 U/L (12-78); SODIUM 139 mmol/L (136-145)
== END | disposition home or self-care (01) ==
LOC: LAB 10:36
PROVIDERS: Physician Assistant
DX: M05.79 Rheumatoid arthritis with rheumatoid factor of multiple sites without organ or systems involvement (principal)

== ENCOUNTER → 2017-08-25 | Outpatient (CLI) | payer OTHER ==
[2017-08-25 16:56] LABS: BASO % 0.2 % (0.0-1.0); EOS # 0.1 10*3/uL (0.0-0.4); EOS % 0.7 % (1.0-4.0); HEMATOCRIT 43.5 % (37.0-47.0); HEMOGLOBIN 14.3 g/dl (12.0-16.0); LYMPH # 1.3 10*3/uL (1.3-4.4); MEAN CELL VOLUME 84.5 fl (81.0-99.0); MEAN CORPUSCULAR HGB 27.8 pg (27.0-31.0); MEAN CORPUSCULAR HGB CONC 32.9 g/dl (33.0-37.0); MEAN PLATELET VOLUME 10.7 fl (9.6-12.3); MONO % 7.8 % (3.0-9.0); NEUT # 10.2 10*3/uL (2.3-7.9); NEUT % 80.5 % (47.0-73.0); PLATELET COUNT AUTOMATED 198 10*3/uL (130-400); RED BLOOD COUNT 5.15 10*6/uL (4.10-5.10); RED CELL DISTRI WIDTH 14.4 % (0-14.5); WHITE BLOOD COUNT 12.7 10*3/uL (4.8-10.8)
[2017-08-25 17:11] LABS: ALBUMIN 3.6 gm/dl (3.1-4.5); ALKALINE PHOSPHATASE 76 U/L (45-117); BUN 18 mg/dl (7-24); CHLORIDE 105 mmol/L (98-107); POTASSIUM 3.8 mmol/L (3.5-5.1); SGOT/AST 9 IU/L (3-35); SGPT/ALT 20 U/L (12-78); SODIUM 138 mmol/L (136-145); TOTAL PROTEIN 7.5 gm/dL (6.4-8.2)
== END ==
LOC: LAB 16:40
PROVIDERS: Internal Medicine
DX: R19.7 Diarrhea, unspecified (principal)

== ENCOUNTER → 2017-09-17 | Outpatient (CLI) | payer OTHER ==
[2017-09-17 13:37] LABS: BASO % 0.2 % (0.0-1.0); EOS % 0.3 % (1.0-4.0); HEMOGLOBIN 15.5 g/dl (12.0-16.0); LYMPH # 0.7 10*3/uL (1.3-4.4); LYMPH % 6.9 % (27.0-41.0); MEAN CELL VOLUME 83.9 fl (81.0-99.0); MEAN CORPUSCULAR HGB 27.7 pg (27.0-31.0); MEAN PLATELET VOLUME 11.3 fl (9.6-12.3); MONO # 0.7 10*3/uL (0.1-1.0); MONO % 7.1 % (3.0-9.0); NEUT # 8.7 10*3/uL (2.3-7.9); PLATELET COUNT AUTOMATED 170 10*3/uL (130-400); RED CELL DISTRI WIDTH 14.6 % (0-14.5); WHITE BLOOD COUNT 10.2 10*3/uL (4.8-10.8)
[2017-09-17 14:00] LABS: BUN 15 mg/dl (7-24); CHLORIDE 102 mmol/L (98-107); CREATININE 0.44 mg/dL (0.55-1.02); POTASSIUM 4.2 mmol/L (3.5-5.1); SGOT/AST 22 IU/L (3-35); SGPT/ALT 28 U/L (12-78); SODIUM 138 mmol/L (136-145)
== END | disposition home or self-care (01) ==
LOC: LAB 13:15
PROVIDERS: Physician Assistant
DX: M16.11 Unilateral primary osteoarthritis, right hip (principal); M70.61 Trochanteric bursitis, right hip; M05.79 Rheumatoid arthritis with rheumatoid factor of multiple sites without organ or systems involvement

== ENCOUNTER 2017-11-28 07:27 | Emergency (ER) | payer OTHER ==
[~2017-11-28] VITALS: Ht 152.4 cm; Wt 86.2 kg
[2017-11-28 07:34] VITALS: BP 158/88
[2017-11-28] MEDS ORDERED: TENORMIN50 MG PO (07:36)
[2017-11-28] MEDS ORDERED: METHOTREXATE2.5 MG PO (07:36)
[2017-11-28] MEDS ORDERED: FOLIC ACID0.8 M1 PO (07:36)
[2017-11-28] MEDS ORDERED: ATIVAN0.5 MG PO (07:37)
[2017-11-28] MEDS ORDERED: OXYBUTYNIN5 MG PO ×2 (07:37)
[2017-11-28] MEDS ORDERED: K-Lor 20MEQ20 MEQ PO (07:38)
[2017-11-28] MEDS ORDERED: HYDROCODONE-AC1 EAC1 PO (07:38)
[2017-11-28] MEDS ORDERED: MIRTAZAPINE15 M1 PO (07:39)
[2017-11-28] MEDS ORDERED: PREDNISONE5 MG PO (07:39)
[2017-11-28] MEDS ORDERED: ARAVA10 M1 PO (07:39)
[2017-11-28] MEDS ORDERED: GABAPENTIN600 MG PO (07:39)
[2017-11-28] MEDS ORDERED: ALENDRONATE SOD35 M1 PO (07:40)
[2017-11-28 08:04] LABS: BASO % 0.2 % (0.0-1.0); EOS % 0.1 % (1.0-4.0); HEMATOCRIT 42.4 % (37.0-47.0); HEMOGLOBIN 14.4 g/dl (12.0-16.0); LYMPH # 0.5 10*3/uL (1.3-4.4); LYMPH % 2.9 % (27.0-41.0); MEAN CELL VOLUME 83.6 fl (81.0-99.0); MEAN CORPUSCULAR HGB 28.4 pg (27.0-31.0); MEAN PLATELET VOLUME 11.2 fl (9.6-12.3); MONO # 1.2 10*3/uL (0.1-1.0); MONO % 7.1 % (3.0-9.0); NEUT # 15.6 10*3/uL (2.3-7.9); NEUT % 89.1 % (47.0-73.0); PLATELET COUNT AUTOMATED 128 10*3/uL (130-400); RED BLOOD COUNT 5.07 10*6/uL (4.10-5.10); RED CELL DISTRI WIDTH 14.5 % (0-14.5); WHITE BLOOD COUNT 17.4 10*3/uL (4.8-10.8)
[2017-11-28 08:13] LABS: ACT PARTIAL THROMBO TIME 26.7 SECONDS (20.8-31.5)
[2017-11-28 08:21] LABS: ALKALINE PHOSPHATASE 70 U/L (45-117); BUN 12 mg/dl (7-24); CHLORIDE 101 mmol/L (98-107); CREATININE 0.53 mg/dL (0.55-1.02); POTASSIUM 3.4 mmol/L (3.5-5.1); SGOT/AST 11 IU/L (3-35); SGPT/ALT 18 U/L (12-78); SODIUM 136 mmol/L (136-145); TOTAL PROTEIN 7.1 gm/dL (6.4-8.2)
[2017-11-28 08:22] LABS: TROPONIN I < 0.015 ng/ml (<0.045)
[2017-11-28 09:41] LABS: BILIRUBIN 1+ (NEGATIVE); BLOOD 1+ (NEGATIVE); CLARITY SL CLOUDY (CLEAR); COLOR YELLOW (YELLOW); GLUCOSE 1+ (NEGATIVE); KETONE 2+ (NEGATIVE); LEUKO ESTERASE NEGATIVE (NEGATIVE); NITRITE NEGATIVE (NEGATIVE); UROBILINOGEN 0.2 E.U./dl (0.2-1.0)
[2017-11-28 09:54] LABS: BACTERIA TRACE; EPITHELIAL CELLS 16-20; MUCOUS TRACE
[2017-11-29] MEDS ORDERED: VITAMIN D31000 UNI1 PO (21:05)
[2017-11-29] MEDS ORDERED: CALCIUM500 M1 PO (21:08)
[2017-11-29] MEDS ORDERED: CINNAMON ALPHA1 EACH PO (21:09)
[2017-11-29] MEDS ORDERED: BOSWELLIA SERRAT1 GM PO (21:13)
[2017-11-29] MEDS ORDERED: IRON18 MG PO (21:14)
== END 2017-11-28 10:17 | disposition home or self-care (01) ==
LOC: ED 07:27
PROVIDERS: Student in an Organized Health Care Education/Training Program
DX: I11.0 Hypertensive heart disease with heart failure (principal); I50.9 Heart failure, unspecified; I48.91 Unspecified atrial fibrillation; K21.9 Gastro-esophageal reflux disease without esophagitis; E78.00 Pure hypercholesterolemia, unspecified; M19.90 Unspecified osteoarthritis, unspecified site; G25.81 Restless legs syndrome; M06.9 Rheumatoid arthritis, unspecified; Z79.899 Other long term (current) drug therapy; Z88.0 Allergy status to penicillin; Z88.2 Allergy status to sulfonamides; Z90.49 Acquired absence of other specified parts of digestive tract; Z98.890 Other specified postprocedural states; Z90.710 Acquired absence of both cervix and uterus; Z88.1 Allergy status to other antibiotic agents; Z88.8 Allergy status to other drugs, medicaments and biological substances; Z96.653 Presence of artificial knee joint, bilateral

== ENCOUNTER 2017-11-29 16:22 | Inpatient (IN) | payer OTHER ==
[~2017-11-29] VITALS: Ht 152.4 cm; Wt 87.6 kg
--- NOTE | ~2017-11-29 | CON ---
[place], [place] REPORT OF CONSULTATION NAME: FAREED DIALLO UNIT #: [id number] ROOM: 424 DOCTOR: JEFF ORTEGA MD BIRTHDATE: [birth year] DOS: 12/03/2017 HISTORY OF PRESENT ILLNESS: A 72-year-old patient who presented with chief complaint of shortness of breath and some epigastric distress, some nonspecific abdominal distress. The patient has been admitted and a panel of workup was done including chest x-ray and CT scan of the chest, pneumonic infiltrate has been identified. The patient's urine culture was negative. Blood culture was negative. Her laboratory values were reassessed. Her comprehensive metabolic panel, GFR greater than 60. Chemistry panel, liver function tests within normal limit. White blood cell 9, H and H of 12 and 39. PAST MEDICAL HISTORY: Associated hypertension, degenerative joint disease, gastroesophageal reflux, atrial fibrillation, and congestive heart failure. PAST SURGICAL HISTORY: Cholecystectomy, hysterectomy, tonsillectomy, cardiac catheterization. She has had previous endoscopic evaluation done in February, she had sessile colonic polyp x2 and gastritis. REVIEW OF SYSTEMS: At the present time, HEENT: Denies double vision, blurred vision. RESPIRATORY: Admits some shortness of breath. CARDIOVASCULAR: No chest pain. DIGESTIVE SYSTEM: No nausea, vomiting, hematemesis, hematochezia. PHYSICAL EXAMINATION: GENERAL: Nontoxic patient. VITAL SIGNS: Stable. HEENT: Within normal limit. NECK: Supple, no thyromegaly. CHEST: Symmetric anatomy. LUNGS: Few scattered rhonchi, left base. HEART: Atrial fibrillation, moderate ventricular response. ABDOMEN: Obese, large, soft. No hepato-organomegaly. Bowel sounds present. EXTREMITIES: No cyanosis, no pedal edema. NEUROLOGIC: Alert and oriented. She has been able to eat her breakfast today and she has had bowel movement yesterday. IMPRESSION: Pneumonic infiltrate, renal insufficiency, fatty metamorphosis of liver, splenomegaly, anxiety, hypertension, and obesity. PLAN AND DISCUSSION: We are going to concentrate on lung infiltration management. [place], [place] REPORT OF CONSULTATION NAME: FAREED DIALLO Chidi UNIT #: [id number] ROOM: 424 DOCTOR: JEFF ORTEGA MD BIRTHDATE: [birth year] JEFF ORTEGA MD CM:CONSTR:REPORT OF CONSULTATION 1420 12/04/17 0217 interface
--- NOTE | ~2017-11-29 | CON ---
[place], [place] REPORT OF CONSULTATION [id number] UNIT #: [id number] ROOM: 407 DOCTOR: JEFF ORTEGA MD BIRTHDATE: [birth year] DOS: 12/01/2017 HISTORY OF PRESENT ILLNESS: A 72-year-old, who has presented with chief complaint of "I don't feel good, I was short of breath." The patient had to be admitted to Dr. Gordillo's service. She was found to have pneumonic infiltrate. She is being treated with Merrem at the present time. She has no nausea or vomiting. No diarrhea, no hematemesis, and no hematochezia. Her past colonoscopies and endoscopy has been February and two colonic polypectomy, and no acute concern about the colon at that stage. I have reviewed her consult of March 2017. Her labs and records and old history has been reviewed. Latest blood cultures have been negative. Urine cultures have been unremarkable. Comprehensive metabolic hypokalemia has been addressed, substituted. Liver function test normal. CBC: White blood cells 13, H and H of 12 and 37 has been noticed. Chest x-ray, progressive infiltrate in the left lower lobe has been identified. Abdominal sonogram, diffuse hepatic steatosis and splenomegaly. Has known CBC differential. Platelet has been 135, hemoglobin A1c 6.2. Her initial urine with multi-organism possible contamination. CT scan of the abdomen and pelvis, no new findings. All has been recognized. Flu A and B has been negative. PAST MEDICAL HISTORY: Congestive heart failure, gastroesophageal reflux, degenerative joint disease, hypertension, obesity, and atrial fibrillation. PAST SURGICAL HISTORY: Hysterectomy, cholecystectomy, tonsillectomy, and cardiac catheterization. SOCIAL HISTORY: Nonsmoker, nonalcohol consumer. FAMILY HISTORY: Noncontributory. ALLERGIES: TO SULFA, PENICILLIN, ERYTHROMYCIN, CLINDAMYCIN, CYCLOBENZAPRINE AND FOOD EXTRACTS POLLEN. REVIEW OF SYSTEMS: HEENT: Denies double vision or blurred vision. RESPIRATORY: Admits to shortness of breath. CARDIOVASCULAR: Denies chest pain. DIGESTIVE SYSTEM: No hematemesis, no hematochezia. Nonspecific abdominal pain. PHYSICAL EXAMINATION: GENERAL: Nontoxic patient with comfortable. VITAL SIGNS: Stable. HEENT: Within normal limit. NECK: Supple. No thyromegaly, no cervical lymphadenopathy. CHEST: Symmetric anatomy, equal expansion. LUNGS: Few scattered rhonchi ____. HEART: Normal sinus rhythm. No gallop, no murmur. ABDOMEN: Obese, large, soft. No hepato-organomegaly. No rebound tenderness. No pulsatile mass. EXTREMITIES: No cyanosis. Trace pedal edema was noticed. [place], [place] REPORT OF CONSULTATION NAME: FAREED DIALLO UNIT #: [id number] ROOM: 407 DOCTOR: JEFF ORTEGA MD BIRTHDATE: [birth year] NEUROLOGIC: Fully alert, oriented to time, place, and person. Sensory, motor intact. Cranial nerves 2-12 intact. IMPRESSION: 1. Pulmonic infiltrate, on antibiotic. 2. Hypokalemia, substituted. OTHER ADJUNCTIVE DIAGNOSES: 1. Fatty metamorphosis of liver. 2. Splenomegaly. 3. History of congestive heart failure. 4. Osteoporosis. 5. Spondylolisthesis of lower back. 6. Anxiety. 7. Hypertension history. 8. Borderline obesity, all has been recognized. PLAN AND DISCUSSION: We are going to remain conservative at this time. We are going to continue with management of pneumonia and we will follow as outpatient. JEFF ORTEGA MD CM:CONSTR:REPORT OF CONSULTATION 1619 12/01/17 2141 interface
--- NOTE | ~2017-11-29 | PR ---
[place], [place] PROGRESS NOTE NAME: FAREED DIALOL [facility] #: [id number] UNIT #: [id number] ROOM: 424 DOCTOR: NARESH DICKERSON MD BIRTHDATE: [birth year] DOS: 12/05/2017 SUBJECTIVE: The patient has been admitted to the hospital with pneumonia, with difficulty in breathing and chest pain. She is also having GERD syndrome and right now, she is feeling better. She denies any chest pain and she had some difficulty in breathing on deep inspiration, but mostly she is feeling fairly good. She is able to ambulate without much problem. No nausea, no vomiting. She is eating satisfactorily. OBJECTIVE: VITAL SIGNS: Her blood pressure 134/72, respirations 74, respirations 18, temperature 97.7. HEART: Regular. CHEST: Having occasional wheezes. No crepitation. Her chest x-ray shows left lower lobe pneumonia. Blood culture and sensitivity did not grow any bacteria. NARESH DICKERSON MD CM:PNTRANS 0817 1014 NARESH DICKERSON MD 12/05/17 1203 interface
--- NOTE | ~2017-11-29 | DS ---
[place], [place] DISCHARGE SUMMARY NAME: FAREED DIALLO [facility] #: [id number] UNIT #: [id number] ROOM: 424 DOCTOR: CARMEN KWOK MD BIRTHDATE: [birth year] DOS: 12/07/2017 REASON FOR ADMISSION: Abdominal pain and leukocytosis. The patient was found to have left lower lobe pneumonia. HOSPITAL COURSE: This is a 72-year-old female who was admitted from the office through the ER for pneumonia. The patient's pneumonia has improved. The patient was to be discharged to [place] but they wanted to check for C. diff and stool for C. diff is negative, the patient can be discharged to [place]. The patient on the whole has improved. Please see the clinical visit note today for further details. Her right lower abdominal pain has improved. We did a CAT scan and it did not show any inguinal hernia. She had a CT scan of the chest done, which showed a 7 mm nodule and a persistent left lower lobe pneumonia. A CT of the pelvis was also done, which showed no acute process. Blood cultures have been negative so far. FINAL DIAGNOSES: 1. Community-acquired left lower lobe pneumonia. 2. Abdominal pain, most likely musculoskeletal pain. 3. Rheumatoid arthritis. 4. Chronic back pain. 5. Acute kidney injury, possible acute tubular necrosis. 6. Fatty liver. 7. Hypertension. 8. Obesity. 9. Neutrophilia. 10. Leukocytosis. 11. Sepsis, which has resolved. 12. Lymphopenia. 13. Monocytosis. 14. Hyponatremia. 15. Moderate protein calorie malnutrition. 16. Morbid obesity. 17. Congestive heart failure, both combined systolic and diastolic. 18. Neuropathic pain. 19. Osteoporosis. 20. Folic acid deficiency. 21. Multiple degenerative joint disease. 22. Lumbar spondylolisthesis. 23. Hypertension. DISCHARGE MEDICATIONS: 1. Cefdinir 300 mg b.i.d. up to 12/10/2017. 2. Vancomycin 125 q.i.d. up to 12/10/2017. 3. Doxycycline 100 mg b.i.d. up to 12/10/2017. 4. Levaquin 750 mg daily, stop Levaquin. 5. Methotrexate 2.5 mg 1 tablet on Wednesday. 6. Fosamax 35 mg on every Wednesday. 7. Prednisone 5 mg daily. 8. Potassium chloride 40 mEq daily. [place], [place] DISCHARGE SUMMARY NAME: FAREED DIALLO UNIT #: [id number] ROOM: 424 DOCTOR: CARMEN KWOK MD BIRTHDATE: [birth year] 9. Folic acid 1 mg daily. 10. Os-Norbert plus vitamin D 1000 mg daily. 11. Ferrous sulfate 50 mg daily. 12. Vitamin D 1000 International Units daily. 13. Leflunomide 10 mg daily. 14. Oxybutynin 2.5 mg daily. 15. Atenolol 50 mg daily. 16. Acetaminophen/hydrocodone 5/325 that is Manati 1 tablet b.i.d. p.r.n. for pain. DISCHARGE INSTRUCTIONS: 1. The [facility] to be [facility] to [facility]. 2. As soon as the patient is discharged from [facility], she should see me. 3. We will follow the patient closely. CARMEN KWOK MD CM:DISCHARG 1244 1309 CARMEN KWOK MD 12/07/17 1328 interface
--- NOTE | ~2017-11-29 | PR ---
[place], [place] PROGRESS NOTE NAME: FAREED DIALLO UNIT #: [id number] ROOM: 424 DOCTOR: CARMEN KWOK MD BIRTHDATE: [birth year] DOS: SUBJECTIVE: The patient is doing well. The patient's pain in the abdomen has also decreased. No chest pain. No shortness of breath. OBJECTIVE: VITAL SIGNS: Blood pressure is 113/72, pulse is 85, respiratory rate 20, temperature 97.9. CHEST: Clinically decreased breath sounds bilaterally. HEART: S1, S2, regular in rate and no murmur, gallop or rub. ABDOMEN: Soft. Tenderness in the right lower quadrant on the inguinal ligament area is still there. EXTREMITIES: No edema noted. No cyanosis or clubbing. LABORATORY DATA: Creatinine is 0.61. EGFR greater than 60. WBC count is 14.1, hemoglobin is 16, platelets are 262. Blood cultures have been negative so far. Dr. Caldwell did see the patient. ASSESSMENT: 1. Pneumonic infiltrate. 2. Renal insufficiency. 3. Acute kidney injury. 4. Fatty liver. 5. Anxiety and hypertension. 6. Obesity. 7. Right lower quadrant abdominal pain. 8. Moderate protein calorie malnutrition. 9. Osteoporosis. 10. Rheumatoid arthritis. 11. Borderline diabetes. PLAN OF CARE: The patient is on oral vancomycin. The patient is also on IV Rocephin. The patient has 7 mm lung nodule, which was discussed with the patient ____ and repeat CAT scan in 6 to 12 months. We will follow the patient closely. As soon as the patient is approved for [place], the patient will be discharged to [place]. [place], [place] PROGRESS NOTE NAME: FAREED DIALLO UNIT #: [id number] ROOM: 424 DOCTOR: CARMEN KWOK MD BIRTHDATE: [birth year] CARMEN KWOK MD CM:PNTRANS 1235 1256 CARMEN KWOK MD 12/06/17 1255 interface
--- NOTE | ~2017-11-29 | PR ---
[place], [place] PROGRESS NOTE NAME: FAREED DIALLO [facility] #: [id number] UNIT #: [id number] ROOM: 424 DOCTOR: NARESH DICKERSON MD BIRTHDATE: [birth year] DOS: 12/04/2017 SUBJECTIVE: The patient has been admitted to hospital with pneumonia with sepsis with difficulty in breathing, also had some pain in the abdomen with GERD syndrome and she is slowly feeling better. She is denying any acute chest pain and no difficulty in breathing and her chest x-ray shows left lower lobe pneumonia. Blood culture did not grow any bacteria. Comprehensive metabolic profile shows creatinine 0.40 which is low; however, kidney function is normal. Chloride is 109, calcium 7.7, total protein 6.1, albumin is 2.1 indicating proteinemia and hypoalbuminemia. OBJECTIVE: VITAL SIGNS: Her blood pressure is 135/73, pulse 66, respirations 20, temperature 97.6. HEART: Regular. CHEST: ____ wheeze. No crepitation. ABDOMEN: Soft. NARESH DICKERSON MD CM:PNTRANS 0826 1113 NARESH DICKERSON MD 12/04/17 2108 interface
[~2017-11-29 16:22] MED LIST changes: +ARAVA10 M1 PO; +ATIVAN0.5 MG PO; +FOLIC ACID0.8 M1 PO; +GABAPENTIN600 MG PO; +HYDROCODONE-AC1 EAC1 PO; +K-Lor 20MEQ20 MEQ PO; +METHOTREXATE2.5 MG PO; +MIRTAZAPINE15 M1 PO; +TENORMIN50 MG PO
[2017-11-29 16:30] VITALS: BP 115/55
[2017-11-29 16:53] LABS: HEMOGLOBIN 14.9 g/dl (12.0-16.0); MEAN CELL VOLUME 85.6 fl (81.0-99.0); RED CELL DISTRI WIDTH 14.6 % (0-14.5); WHITE BLOOD COUNT 19.5 10*3/uL (4.8-10.8)
[2017-11-29 17:05] LABS: ALKALINE PHOSPHATASE 73 U/L (45-117); BUN 16 mg/dl (7-24); CHLORIDE 102 mmol/L (98-107); CREATININE 0.58 mg/dL (0.55-1.02); SGOT/AST 15 IU/L (3-35); SGPT/ALT 12 U/L (12-78); SODIUM 135 mmol/L (136-145); TOTAL PROTEIN 7.6 gm/dL (6.4-8.2)
[2017-11-29 17:06] LABS: LIPASE 34 U/L (73-393); POTASSIUM 4.6 mmol/L (3.5-5.1)
[2017-11-29 17:07] LABS: ACT PARTIAL THROMBO TIME 27.1 SECONDS (20.8-31.5); INTERNATIONAL NORM RATIO 1.1 (2.0-3.5)
[2017-11-29 18:15] LABS: BASO % 0.2 % (0.0-1.0); HEMATOCRIT 44.6 % (37.0-47.0); LYMPH # 0.6 10*3/uL (1.3-4.4); LYMPH % 2.8 % (27.0-41.0); MEAN CORPUSCULAR HGB 28.6 pg (27.0-31.0); MEAN CORPUSCULAR HGB CONC 33.4 g/dl (33.0-37.0); MEAN PLATELET VOLUME 11.6 fl (9.6-12.3); MONO # 1.8 10*3/uL (0.1-1.0); MONO % 9.1 % (3.0-9.0); NEUT % 87.1 % (47.0-73.0); PLATELET COUNT AUTOMATED 155 10*3/uL (130-400); RED BLOOD COUNT 5.21 10*6/uL (4.10-5.10)
[2017-11-29 18:18] LABS: PLATELET SUFFICIENCY NORMAL (NORMAL); TOTAL CELLS COUNTED 100 #CELLS
[2017-11-29 18:19] LABS: BURR CELLS FEW; POLYCHROMASIA SLIGHT
[2017-11-29 18:25] VITALS: BP 113/56
[2017-11-29 20:04] VITALS: BP 125/46; BP 130/42
[2017-11-29 20:12] LABS: BILIRUBIN NEGATIVE (NEGATIVE); BLOOD 2+ (NEGATIVE); CLARITY CLEAR (CLEAR); COLOR YELLOW (YELLOW); GLUCOSE NEGATIVE (NEGATIVE); KETONE 2+ (NEGATIVE); LEUKO ESTERASE NEGATIVE (NEGATIVE); NITRITE NEGATIVE (NEGATIVE); SPECIFIC GRAVITY <= 1.005 (1.005-1.030); UROBILINOGEN 0.2 E.U./dl (0.2-1.0)
[2017-11-29 20:23] LABS: BACTERIA TRACE; MUCOUS TRACE
[2017-11-29 20:24] LABS: EPITHELIAL CELLS 16-20
[2017-11-29] MEDS ORDERED: VITAMIN D31000 UNI1 PO (21:05)
[2017-11-29] MEDS ORDERED: CALCIUM500 M1 PO (21:08)
[2017-11-29] MEDS ORDERED: CINNAMON ALPHA1 EACH PO (21:09)
[2017-11-29] MEDS ORDERED: BOSWELLIA SERRAT1 GM PO (21:13)
[2017-11-29] MEDS ORDERED: IRON18 MG PO (21:14)
[2017-11-30 01:24] VITALS: BP 130/61
[2017-11-30 05:30] LABS: ALBUMIN 2.2 gm/dl (3.1-4.5); ALKALINE PHOSPHATASE 61 U/L (45-117); BUN 13 mg/dl (7-24); CHLORIDE 105 mmol/L (98-107); CHOLESTEROL 103 mg/dL (<200); CREATININE 0.45 mg/dL (0.55-1.02); HDL CHOLESTEROL 32 mg/dl (40-60); LDL CHOLESTEROL 54 mg/dL (9-159); PHOSPHOROUS 2.9 mg/dL (2.5-4.9); SGOT/AST 8 IU/L (3-35); SGPT/ALT 10 U/L (12-78); SODIUM 140 mmol/L (136-145); TOTAL PROTEIN 6.3 gm/dL (6.4-8.2); TRIGLYCERIDES 85 mg/dl (<150); VLDL CHOLESTEROL 17 mg/dL (6-40)
[2017-11-30 05:35] LABS: THYROID STIM HORMONE (HS) 0.613 uIU/ml (0.358-4.75)
[2017-11-30 05:36] LABS: POTASSIUM 3.5 mmol/L (3.5-5.1)
[2017-11-30 06:04] LABS: HEMATOCRIT 38.5 % (37.0-47.0); HEMOGLOBIN 12.5 g/dl (12.0-16.0); MEAN CELL VOLUME 86.7 fl (81.0-99.0); MEAN CORPUSCULAR HGB 28.2 pg (27.0-31.0); MEAN CORPUSCULAR HGB CONC 32.5 g/dl (33.0-37.0); MEAN PLATELET VOLUME 11.9 fl (9.6-12.3); PLATELET COUNT AUTOMATED 135 10*3/uL (130-400); RED BLOOD COUNT 4.44 10*6/uL (4.10-5.10); RED CELL DISTRI WIDTH 14.6 % (0-14.5); WHITE BLOOD COUNT 15.6 10*3/uL (4.8-10.8)
[2017-11-30 07:27] LABS: BASOPHILS 1 % (0-1); PLATELET SUFFICIENCY NORMAL (NORMAL); TOTAL CELLS COUNTED 100 #CELLS
[2017-11-30 07:51] LABS: VITAMIN D, 25-HYDROXY 29.7 ng/mL (30-100)
[2017-11-30 08:00] VITALS: BP 138/56
[2017-11-30 12:00] VITALS: BP 136/62
[2017-11-30 16:00] VITALS: BP 126/66
[2017-11-30 20:00] VITALS: BP 113/46
[2017-12-01] VITALS: BP 148/70
[2017-12-01 07:04] LABS: HEMATOCRIT 37.8 % (37.0-47.0); HEMOGLOBIN 12.6 g/dl (12.0-16.0); MEAN CELL VOLUME 85.7 fl (81.0-99.0); MEAN CORPUSCULAR HGB 28.6 pg (27.0-31.0); MEAN CORPUSCULAR HGB CONC 33.3 g/dl (33.0-37.0); MEAN PLATELET VOLUME 11.1 fl (9.6-12.3); PLATELET COUNT AUTOMATED 130 10*3/uL (130-400); RED BLOOD COUNT 4.41 10*6/uL (4.10-5.10); RED CELL DISTRI WIDTH 14.6 % (0-14.5); WHITE BLOOD COUNT 13.1 10*3/uL (4.8-10.8)
[2017-12-01 07:31] LABS: BUN 12 mg/dl (7-24); CHLORIDE 105 mmol/L (98-107); CREATININE 0.36 mg/dL (0.55-1.02); POTASSIUM 2.9 mmol/L (3.5-5.1); SGPT/ALT 11 U/L (12-78); SODIUM 139 mmol/L (136-145)
[2017-12-01 07:32] LABS: ROULEAUX SLIGHT; TOTAL CELLS COUNTED 100 #CELLS
[2017-12-01 07:33] LABS: PLATELET SUFFICIENCY NORMAL (NORMAL)
[2017-12-01 07:35] LABS: ALBUMIN 2.1 gm/dl (3.1-4.5); ALKALINE PHOSPHATASE 56 U/L (45-117); SGOT/AST 9 IU/L (3-35)
[2017-12-01 08:00] VITALS: BP 141/65
[2017-12-01 12:00] VITALS: BP 115/70
[2017-12-01 16:00] VITALS: BP 131/64
[2017-12-01 20:00] VITALS: BP 130/76
[2017-12-02] VITALS: BP 132/63
[2017-12-02 07:46] LABS: BASO % 0.3 % (0.0-1.0); EOS % 0.3 % (1.0-4.0); HEMATOCRIT 39.1 % (37.0-47.0); HEMOGLOBIN 12.8 g/dl (12.0-16.0); LYMPH # 0.5 10*3/uL (1.3-4.4); LYMPH % 4.1 % (27.0-41.0); MEAN CELL VOLUME 86.5 fl (81.0-99.0); MEAN CORPUSCULAR HGB 28.3 pg (27.0-31.0); MEAN CORPUSCULAR HGB CONC 32.7 g/dl (33.0-37.0); MEAN PLATELET VOLUME 10.9 fl (9.6-12.3); MONO # 1.3 10*3/uL (0.1-1.0); MONO % 11.6 % (3.0-9.0); NEUT # 9.1 10*3/uL (2.3-7.9); NEUT % 82.6 % (47.0-73.0); PLATELET COUNT AUTOMATED 138 10*3/uL (130-400); RED BLOOD COUNT 4.52 10*6/uL (4.10-5.10); RED CELL DISTRI WIDTH 14.6 % (0-14.5)
[2017-12-02 08:00] VITALS: BP 140/63
[2017-12-02 08:18] LABS: ALBUMIN 2.2 gm/dl (3.1-4.5); BUN 13 mg/dl (7-24); CHLORIDE 106 mmol/L (98-107); SODIUM 139 mmol/L (136-145)
[2017-12-02 08:23] LABS: ALKALINE PHOSPHATASE 56 U/L (45-117); SGOT/AST 9 IU/L (3-35); SGPT/ALT 11 U/L (12-78); TOTAL PROTEIN 6.2 gm/dL (6.4-8.2)
[2017-12-02 08:41] LABS: CREATININE 0.38 mg/dL (0.55-1.02)
[2017-12-02 12:00] VITALS: BP 146/78
[2017-12-02 16:14] VITALS: BP 133/63
[2017-12-02 20:00] VITALS: BP 132/61
[2017-12-03] VITALS: BP 152/68
[2017-12-03 06:21] LABS: BASO % 0.2 % (0.0-1.0); EOS % 0.3 % (1.0-4.0); HEMOGLOBIN 12.8 g/dl (12.0-16.0); LYMPH # 0.5 10*3/uL (1.3-4.4); LYMPH % 5.2 % (27.0-41.0); MEAN CELL VOLUME 86.1 fl (81.0-99.0); MEAN CORPUSCULAR HGB 28.3 pg (27.0-31.0); MEAN CORPUSCULAR HGB CONC 32.8 g/dl (33.0-37.0); MEAN PLATELET VOLUME 11.3 fl (9.6-12.3); MONO # 1.1 10*3/uL (0.1-1.0); MONO % 11.9 % (3.0-9.0); NEUT # 7.5 10*3/uL (2.3-7.9); NEUT % 81.5 % (47.0-73.0); PLATELET COUNT AUTOMATED 152 10*3/uL (130-400); RED BLOOD COUNT 4.53 10*6/uL (4.10-5.10); RED CELL DISTRI WIDTH 14.6 % (0-14.5); WHITE BLOOD COUNT 9.2 10*3/uL (4.8-10.8)
[2017-12-03 06:55] LABS: ALBUMIN 2.1 gm/dl (3.1-4.5); ALKALINE PHOSPHATASE 56 U/L (45-117); BUN 12 mg/dl (7-24); CHLORIDE 109 mmol/L (98-107); POTASSIUM 3.7 mmol/L (3.5-5.1); SGOT/AST 11 IU/L (3-35); SGPT/ALT 14 U/L (12-78); SODIUM 141 mmol/L (136-145); TOTAL PROTEIN 6.1 gm/dL (6.4-8.2)
[2017-12-03 09:00] VITALS: BP 155/80
[2017-12-03 12:00] VITALS: BP 143/63
[2017-12-03 16:00] VITALS: BP 131/56
[2017-12-03 20:00] VITALS: BP 127/71
[2017-12-04] VITALS: BP 135/73
[2017-12-04 08:00] VITALS: BP 134/66
[2017-12-04 12:00] VITALS: BP 127/66
[2017-12-04 16:00] VITALS: BP 142/69
[2017-12-04 20:00] VITALS: BP 148/88
[2017-12-05] VITALS: BP 86/46
[2017-12-05 04:00] VITALS: BP 134/72
[2017-12-05 08:00] VITALS: BP 134/80
[2017-12-05 12:00] VITALS: BP 146/77
[2017-12-05 16:00] VITALS: BP 109/76
[2017-12-05 20:00] VITALS: BP 135/67
[2017-12-06] VITALS: BP 137/64
[2017-12-06 08:00] VITALS: BP 150/87
[2017-12-06 08:02] LABS: HEMATOCRIT 48.9 % (37.0-47.0); HEMOGLOBIN 16.1 g/dl (12.0-16.0); MEAN CELL VOLUME 85.6 fl (81.0-99.0); MEAN CORPUSCULAR HGB 28.2 pg (27.0-31.0); MEAN CORPUSCULAR HGB CONC 32.9 g/dl (33.0-37.0); MEAN PLATELET VOLUME 11.1 fl (9.6-12.3); PLATELET COUNT AUTOMATED 262 10*3/uL (130-400); RED BLOOD COUNT 5.71 10*6/uL (4.10-5.10); RED CELL DISTRI WIDTH 14.7 % (0-14.5); WHITE BLOOD COUNT 14.1 10*3/uL (4.8-10.8)
[2017-12-06 08:21] LABS: CREATININE 0.61 mg/dL (0.55-1.02)
[2017-12-06 08:22] LABS: PLATELET SUFFICIENCY NORMAL (NORMAL); TOTAL CELLS COUNTED 100 #CELLS
[2017-12-06 12:00] VITALS: BP 113/72
[2017-12-06 16:00] VITALS: BP 113/72
[2017-12-06 20:00] VITALS: BP 137/93
[2017-12-07] VITALS: BP 124/63
[2017-12-07 06:59] LABS: BASO # 0.1 10*3/uL (0.0-0.1); BASO % 0.5 % (0.0-1.0); EOS # 0.1 10*3/uL (0.0-0.4); EOS % 0.7 % (1.0-4.0); HEMATOCRIT 42.2 % (37.0-47.0); HEMOGLOBIN 13.9 g/dl (12.0-16.0); LYMPH # 0.7 10*3/uL (1.3-4.4); LYMPH % 7.1 % (27.0-41.0); MEAN CELL VOLUME 85.9 fl (81.0-99.0); MEAN CORPUSCULAR HGB 28.3 pg (27.0-31.0); MEAN CORPUSCULAR HGB CONC 32.9 g/dl (33.0-37.0); MEAN PLATELET VOLUME 11.6 fl (9.6-12.3); MONO # 1.3 10*3/uL (0.1-1.0); MONO % 13.3 % (3.0-9.0); NEUT # 7.3 10*3/uL (2.3-7.9); PLATELET COUNT AUTOMATED 188 10*3/uL (130-400); RED BLOOD COUNT 4.91 10*6/uL (4.10-5.10); RED CELL DISTRI WIDTH 14.7 % (0-14.5); WHITE BLOOD COUNT 9.5 10*3/uL (4.8-10.8)
[2017-12-07 08:00] VITALS: BP 146/54
[2017-12-07 12:00] VITALS: BP 126/88
[2017-12-07] MEDS ORDERED: LEVAQUIN750 M1 PO (13:10)
== END 2017-12-07 14:40 | disposition other institution (70) | DRG 871 ==
LOC: ED 16:22 → 4E 19:07 → EDHOLD 19:07 → 4E 19:35
PROVIDERS: Internal Medicine; Internal Medicine Nephrology; Nurse Practitioner Family
DX: A41.9 Sepsis, unspecified organism (principal); J18.1 Lobar pneumonia, unspecified organism; N17.0 Acute kidney failure with tubular necrosis; E44.0 Moderate protein-calorie malnutrition; E87.8 Other disorders of electrolyte and fluid balance, not elsewhere classified; E88.09 Other disorders of plasma-protein metabolism, not elsewhere classified; E66.01 Morbid (severe) obesity due to excess calories; R16.1 Splenomegaly, not elsewhere classified; E87.1 Hypo-osmolality and hyponatremia; I50.42 Chronic combined systolic (congestive) and diastolic (congestive) heart failure; Z68.41 Body mass index [BMI] 40.0-44.9, adult; I11.0 Hypertensive heart disease with heart failure; I48.0 Paroxysmal atrial fibrillation; I72.8 Aneurysm of other specified arteries; M06.9 Rheumatoid arthritis, unspecified; D72.810 Lymphocytopenia; D72.821 Monocytosis (symptomatic); L30.8 Other specified dermatitis; R73.9 Hyperglycemia, unspecified; M79.2 Neuralgia and neuritis, unspecified; M81.0 Age-related osteoporosis without current pathological fracture; E53.8 Deficiency of other specified B group vitamins; F41.9 Anxiety disorder, unspecified; M15.9 Polyosteoarthritis, unspecified; M43.16 Spondylolisthesis, lumbar region; Z88.0 Allergy status to penicillin; Z88.2 Allergy status to sulfonamides; Z88.1 Allergy status to other antibiotic agents; K21.9 Gastro-esophageal reflux disease without esophagitis; Z96.652 Presence of left artificial knee joint; Z83.3 Family history of diabetes mellitus; Z82.49 Family history of ischemic heart disease and other diseases of the circulatory system; E66.9 Obesity, unspecified; K76.0 Fatty (change of) liver, not elsewhere classified; R73.03 Prediabetes; M79.1 Myalgia; G89.29 Other chronic pain; M54.9 Dorsalgia, unspecified

== ENCOUNTER → 2018-01-31 | Outpatient (CLI) | payer OTHER ==
[~2018-01-31] MED LIST changes: +BOSWELLIA SERRAT1 GM PO; +CALCIUM500 M1 PO; +IRON18 MG PO; +LEVAQUIN750 M1 PO; +VITAMIN D31000 UNI1 PO
[2018-01-31 14:40] LABS: CHOLESTEROL 140 mg/dL (<200); HDL CHOLESTEROL 49 mg/dl (40-60); LDL CHOLESTEROL 64 mg/dL (9-159); TRIGLYCERIDES 135 mg/dl (<150); VLDL CHOLESTEROL 27 mg/dL (6-40)
== END | disposition home or self-care (01) ==
LOC: LAB 13:35
PROVIDERS: Internal Medicine
DX: N32.81 Overactive bladder (principal); E11.9 Type 2 diabetes mellitus without complications

== ENCOUNTER → 2018-02-08 | Outpatient (CLI) | payer OTHER ==
[2018-02-08 11:33] LABS: BASO % 0.3 % (0.0-1.0); EOS % 0.6 % (1.0-4.0); HEMOGLOBIN 15.7 g/dl (12.0-16.0); LYMPH # 0.3 10*3/uL (1.3-4.4); LYMPH % 4.4 % (27.0-41.0); MEAN CELL VOLUME 87.3 fl (81.0-99.0); MEAN PLATELET VOLUME 12.4 fl (9.6-12.3); MONO # 0.7 10*3/uL (0.1-1.0); MONO % 10.6 % (3.0-9.0); NEUT # 5.8 10*3/uL (2.3-7.9); NEUT % 83.4 % (47.0-73.0); PLATELET COUNT AUTOMATED 111 10*3/uL (130-400); RED BLOOD COUNT 5.61 10*6/uL (4.10-5.10); RED CELL DISTRI WIDTH 14.4 % (0-14.5)
[2018-02-08 11:59] LABS: BUN 15 mg/dl (7-24); CHLORIDE 106 mmol/L (98-107); CREATININE 0.56 mg/dL (0.55-1.02); POTASSIUM 3.8 mmol/L (3.5-5.1); SGOT/AST 17 IU/L (3-35); SGPT/ALT 31 U/L (12-78); SODIUM 140 mmol/L (136-145)
== END | disposition home or self-care (01) ==
LOC: LAB 11:04
PROVIDERS: Physician Assistant
DX: M05.79 Rheumatoid arthritis with rheumatoid factor of multiple sites without organ or systems involvement (principal)

== ENCOUNTER → 2018-05-18 | Outpatient (CLI) | payer OTHER ==
[2018-05-18 13:33] LABS: BASO % 0.4 % (0.0-1.0); EOS % 0.1 % (1.0-4.0); HEMATOCRIT 42.8 % (37.0-47.0); HEMOGLOBIN 14.4 g/dl (12.0-16.0); LYMPH # 0.5 10*3/uL (1.3-4.4); MEAN CELL VOLUME 86.3 fl (81.0-99.0); MEAN CORPUSCULAR HGB CONC 33.6 g/dl (33.0-37.0); MEAN PLATELET VOLUME 12.1 fl (9.6-12.3); MONO # 0.6 10*3/uL (0.1-1.0); NEUT # 7.8 10*3/uL (2.3-7.9); NEUT % 86.9 % (47.0-73.0); PLATELET COUNT AUTOMATED 121 10*3/uL (130-400); RED BLOOD COUNT 4.96 10*6/uL (4.10-5.10); RED CELL DISTRI WIDTH 13.4 % (0-14.5)
[2018-05-18 14:02] LABS: ALBUMIN 3.3 gm/dl (3.1-4.5); ALKALINE PHOSPHATASE 68 U/L (45-117); BUN 16 mg/dl (7-24); CHLORIDE 106 mmol/L (98-107); CREATININE 0.47 mg/dL (0.55-1.02); POTASSIUM 3.6 mmol/L (3.5-5.1); SGOT/AST 47 IU/L (3-35); SGPT/ALT 27 U/L (12-78); SODIUM 140 mmol/L (136-145); TOTAL PROTEIN 6.9 gm/dL (6.4-8.2)
[2018-05-18 14:37] LABS: BILIRUBIN NEGATIVE (NEGATIVE); BLOOD TRACE-INTACT (NEGATIVE); CLARITY CLOUDY (CLEAR); COLOR YELLOW (YELLOW); GLUCOSE 1+ (NEGATIVE); KETONE NEGATIVE (NEGATIVE); UROBILINOGEN 0.2 E.U./dl (0.2-1.0)
[2018-05-18 14:38] LABS: BACTERIA 4+; LEUKO ESTERASE 1+ (NEGATIVE); NITRITE POSITIVE (NEGATIVE); WBC 41-50 wbc/hpf (0-5); YEAST 2+
== END | disposition home or self-care (01) ==
LOC: LAB 12:39
PROVIDERS: Urology
DX: N39.0 Urinary tract infection, site not specified (principal); I10 Essential (primary) hypertension

== ENCOUNTER → 2018-07-19 | Outpatient (CLI) | payer OTHER ==
[2018-07-19 11:25] LABS: BASO % 0.4 % (0.0-1.0); EOS # 0.2 10*3/uL (0.0-0.4); EOS % 2.9 % (1.0-4.0); HEMATOCRIT 41.8 % (37.0-47.0); LYMPH # 0.5 10*3/uL (1.3-4.4); LYMPH % 7.8 % (27.0-41.0); MEAN CELL VOLUME 85.1 fl (81.0-99.0); MEAN CORPUSCULAR HGB 28.5 pg (27.0-31.0); MEAN CORPUSCULAR HGB CONC 33.5 g/dl (33.0-37.0); MEAN PLATELET VOLUME 12.1 fl (9.6-12.3); MONO # 0.8 10*3/uL (0.1-1.0); MONO % 11.8 % (3.0-9.0); NEUT # 5.3 10*3/uL (2.3-7.9); NEUT % 76.2 % (47.0-73.0); PLATELET COUNT AUTOMATED 144 10*3/uL (130-400); RED BLOOD COUNT 4.91 10*6/uL (4.10-5.10); RED CELL DISTRI WIDTH 14.2 % (0-14.5); WHITE BLOOD COUNT 6.9 10*3/uL (4.8-10.8)
[2018-07-19 11:52] LABS: CREATININE 0.48 mg/dL (0.55-1.02); SGOT/AST 8 IU/L (3-35); SGPT/ALT 8 U/L (12-78)
== END | disposition home or self-care (01) ==
LOC: LAB 10:28
PROVIDERS: Internal Medicine Rheumatology
DX: M05.79 Rheumatoid arthritis with rheumatoid factor of multiple sites without organ or systems involvement (principal)

== ENCOUNTER → 2018-10-04 | Outpatient (CLI) | payer OTHER ==
[~2018-10-04] MED LIST changes: +B12,B-12,B 12500 MC1 PO; +CITALOPRAM20 MG PO; +K-LOR 20MEQ20 ME1 PO; -K-Lor 20MEQ20 MEQ PO; +MELATONIN5 M6 PO; +PROBIOTIC1 EAC1 PO; +SINEMET 25-1001 EACH PO; +TOPIRAMATE50 M2 PO
[2018-10-04 13:15] LABS: BASO % 0.6 % (0.0-1.0); EOS # 0.1 10*3/uL (0.0-0.4); EOS % 1.7 % (1.0-4.0); HEMATOCRIT 43.5 % (37.0-47.0); HEMOGLOBIN 13.8 g/dl (12.0-16.0); LYMPH # 0.5 10*3/uL (1.3-4.4); LYMPH % 11.2 % (27.0-41.0); MEAN CELL VOLUME 88.8 fl (81.0-99.0); MEAN CORPUSCULAR HGB 28.2 pg (27.0-31.0); MEAN CORPUSCULAR HGB CONC 31.7 g/dl (33.0-37.0); MEAN PLATELET VOLUME 11.9 fl (9.6-12.3); MONO # 0.6 10*3/uL (0.1-1.0); MONO % 12.3 % (3.0-9.0); NEUT # 3.4 10*3/uL (2.3-7.9); NEUT % 73.6 % (47.0-73.0); PLATELET COUNT AUTOMATED 135 10*3/uL (130-400); RED CELL DISTRI WIDTH 14.6 % (0-14.5); WHITE BLOOD COUNT 4.6 10*3/uL (4.8-10.8)
[2018-10-04 13:31] LABS: SGOT/AST 30 IU/L (3-35); SGPT/ALT 14 U/L (12-78)
== END | disposition home or self-care (01) ==
LOC: LAB 12:48
PROVIDERS: Internal Medicine Rheumatology
DX: M05.79 Rheumatoid arthritis with rheumatoid factor of multiple sites without organ or systems involvement (principal)

== ENCOUNTER 2018-11-29 11:12 | Inpatient (IN) | payer OTHER ==
[~2018-11-29] VITALS: Ht 152.4 cm; Wt 57.2 kg
[2018-11-29] VITALS (7 sets, daily range): BP systolic 111–139; BP diastolic 57–84
--- NOTE | ~2018-11-29 | PR ---
[place], [place] PROGRESS NOTE [id number] UNIT #: [id number] ROOM: 504 DOCTOR: NARESH DICKERSON MD BIRTHDATE: [birth year] DOS: SUBJECTIVE: The patient has been admitted to the hospital with severe dizziness, vertigo, unsteady gait, leukocyte, thrombocytopenia, elevated SGOT, migraine and protein calorie malnutrition. Bacteriuria is gradually improving, but she is still having a lot of dizziness and waiting placement to be sent to the [facility]. Her creatinine level today is 0.43, which is normal and GFR is 60, so from that point of view, she is doing very good. Her B12 level is 1481. We have stopped her B12 shots and blood culture was negative. OBJECTIVE: VITAL SIGNS: Her blood pressure today is 147/65, pulse 68, respirations 20, temperature 97.9. CHEST: Clear. HEART: Regular. ABDOMEN: Soft. NARESH DICKERSON MD CM:PNTRANS 1042 02 NARESH DICKERSON MD 12/03/182201 interface
--- NOTE | ~2018-11-29 | EKG ---
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
--- NOTE | ~2018-11-29 | PR ---
[place], [place] PROGRESS NOTE [id number] #: [id number] ROOM: 504 DOCTOR: NARESH DICKERSON MD BIRTHDATE: [birth year] DOS: SUBJECTIVE: The patient is awaiting placement to the [facility]. She was admitted to hospital with severe dizziness and vertigo, unsteady gait, leukocytosis, thrombocytopenia, elevated SGOT, migraine and protein-calorie malnutrition. The patient is complaining of some nausea, but no vomiting. She could eat her breakfast and lunch today and does not have any fever and chills. Her creatinine level today is 0.43, GFR is greater than 60, so kidney function is doing fairly normal. OBJECTIVE: HEART: Regular. LUNGS: Clear. No creps or rhonchi. VITAL SIGNS: Blood pressure 135/62, pulse 60, respirations 18, temperature 98.2. ABDOMEN: No tenderness. NARESH DICKERSON MD CM:PNTRANS 1250 2346 NARESH DICKERSON MD 12/05/18 0433 interface
--- NOTE | ~2018-11-29 | EKG ---
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
--- NOTE | ~2018-11-29 | EKG ---
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
[~2018-11-29 11:12] MED LIST changes: -B12,B-12,B 12500 MC1 PO; -CITALOPRAM20 MG PO; -MELATONIN5 M6 PO; -PROBIOTIC1 EAC1 PO; -SINEMET 25-1001 EACH PO; -TOPIRAMATE50 M2 PO
[2018-11-29 11:33] LABS: BASO % 0.3 % (0.0-1.0); EOS % 1.3 % (1.0-4.0); HEMATOCRIT 39.7 % (37.0-47.0); HEMOGLOBIN 13.3 g/dl (12.0-16.0); LYMPH # 0.3 10*3/uL (1.3-4.4); LYMPH % 9.4 % (27.0-41.0); MEAN CORPUSCULAR HGB 30.2 pg (27.0-31.0); MEAN CORPUSCULAR HGB CONC 33.5 g/dl (33.0-37.0); MEAN PLATELET VOLUME 12.1 fl (9.6-12.3); MONO # 0.4 10*3/uL (0.1-1.0); MONO % 13.8 % (3.0-9.0); NEUT # 2.4 10*3/uL (2.3-7.9); NEUT % 74.6 % (47.0-73.0); PLATELET COUNT AUTOMATED 101 10*3/uL (130-400); RED BLOOD COUNT 4.41 10*6/uL (4.10-5.10); RED CELL DISTRI WIDTH 15.3 % (0-14.5); WHITE BLOOD COUNT 3.2 10*3/uL (4.8-10.8)
[2018-11-29 11:49] LABS: ACT PARTIAL THROMBO TIME 29.2 SECONDS (20.8-31.5)
[2018-11-29 11:58] LABS: ALBUMIN 3.3 gm/dl (3.1-4.5); ALKALINE PHOSPHATASE 92 U/L (45-117); BUN 16 mg/dl (7-24); CHLORIDE 110 mmol/L (98-107); CREATININE 0.54 mg/dL (0.55-1.02); SGOT/AST 41 IU/L (3-35); SGPT/ALT 65 U/L (12-78); SODIUM 139 mmol/L (136-145); TOTAL PROTEIN 6.8 gm/dL (6.4-8.2)
[2018-11-29 12:02] LABS: TROPONIN I < 0.015 ng/ml (<0.045)
--- NOTE | 2018-11-29 12:36 | NUR ---
PT POSITIONED FOR COMFORT WITH SAFETY PRECAUTIONS INTACT,FAMILY @ BEDSIDE AND CALL LIGHT WITHIN REACH.
--- NOTE | 2018-11-29 15:15 | NUR ---
WOUND PHOTOS X 2 TAKEN WHEN PT PLACED IN ROOM BY BOTH ED AND IMPATIENT RNs.
--- NOTE | 2018-11-29 15:30 | NUR ---
Time: 1529 A 73 year old FEMALE admitted to 5E under services of DR. SUNDAR ALEGRIA,CARMEN. Pt. arrived via stretcher from ER. Chief complaint: VERTIGO. LATESHA COELHO FAMILY AT BEDSIDE
[2018-11-29] MEDS ORDERED: TOPIRAMATE50 M2 PO (17:43)
[2018-11-29] MEDS ORDERED: SINEMET 25-1001 EACH PO (17:44)
[2018-11-29] MEDS ORDERED: MELATONIN5 M6 PO (17:45)
[2018-11-29] MEDS ORDERED: CITALOPRAM20 MG PO (17:45)
[2018-11-29] MEDS ORDERED: B12,B-12,B 12500 MC1 PO (17:46)
[2018-11-29] MEDS ORDERED: PROBIOTIC1 EAC1 PO (17:46)
--- NOTE | 2018-11-29 19:30 | NUR ---
BEDSIDE REPORT RECIEVED FROM DAY SHIFT RN. PT IS RESTING IN BED AT THIS TIME AND DENIES ANY PAIN OR DISCOMFORT. RESPIRATIONS ARE EASY AND NONLABORED ON ROOM AIR. PT STATES SHE STILL FEELS DIZZY BUT THE MEDICATION SHE HAD IN THE ER HELPED. PT DENIES ANY NEEDS AT THIS TIME. FAMILY IS AT THE BEDSIDE. WILL CONTINUE TO MONITOR.
[2018-11-30] VITALS: BP 121/40
--- NOTE | 2018-11-30 06:30 | NUR ---
FOSAMAX NOT AVAILABLE FROM PHARMACY. WILL PASS ON TO DAY SHIFT NURSE
[2018-11-30 06:55] LABS: BASO % 0.7 % (0.0-1.0); EOS # 0.1 10*3/uL (0.0-0.4); EOS % 3.1 % (1.0-4.0); HEMATOCRIT 37.4 % (37.0-47.0); LYMPH # 0.9 10*3/uL (1.3-4.4); MEAN CELL VOLUME 91.9 fl (81.0-99.0); MEAN CORPUSCULAR HGB 29.5 pg (27.0-31.0); MEAN CORPUSCULAR HGB CONC 32.1 g/dl (33.0-37.0); MEAN PLATELET VOLUME 12.7 fl (9.6-12.3); MONO # 0.7 10*3/uL (0.1-1.0); MONO % 15.3 % (3.0-9.0); NEUT # 2.8 10*3/uL (2.3-7.9); NEUT % 60.8 % (47.0-73.0); PLATELET COUNT AUTOMATED 103 10*3/uL (130-400); RED BLOOD COUNT 4.07 10*6/uL (4.10-5.10); RED CELL DISTRI WIDTH 15.5 % (0-14.5); WHITE BLOOD COUNT 4.6 10*3/uL (4.8-10.8)
[2018-11-30 07:07] LABS: ALBUMIN 2.2 gm/dl (3.1-4.5); ALKALINE PHOSPHATASE 82 U/L (45-117); BUN 14 mg/dl (7-24); CHLORIDE 115 mmol/L (98-107); CREATININE 0.45 mg/dL (0.55-1.02); POTASSIUM 4.1 mmol/L (3.5-5.1); SGOT/AST 38 IU/L (3-35); SGPT/ALT 61 U/L (12-78); SODIUM 139 mmol/L (136-145); TOTAL PROTEIN 5.9 gm/dL (6.4-8.2)
[2018-11-30 07:49] LABS: VITAMIN D, 25-HYDROXY 32.3 ng/mL (30-100)
[2018-11-30 08:00] VITALS: BP 130/70
--- NOTE | 2018-11-30 08:00 | NUR ---
Administration Vice President in to talk to patient. Patient states lives at home with her . There are 0 steps in the home. She has a chair lift. Physician: Dr. Bipin Gordillo [facility]acy: [facility] health services: has had in the past but not currently Patient's level of ADLs: MINIMAL ASSIST Patient has working utilities: yes DME: walker Follow-up physician's appointment after d/c: she prefers to make her own follow up appt after discharge Does patient want to access PORTAL?: no Discharge plan discussed with patient. She lives at home with her . She is independent in her ADLs and ambulates with a walker. Discussed home health care services and short term SNF and she would like to speak to her about it. She has had home health services in the past but not currently and doesn't remember the name of the company. Discharge plan undecided at this time. NATALEE AVILES
--- NOTE | 2018-11-30 08:43 | NUR ---
FAREED DIALLO Chidi [id number] Please refer to the physician's history and physical for past medical history, comorbid conditions, and allergies. Diagnosis: DIZZINESS UNSTEADY GAIT VERTIGO Basil Score: 20,LOW OR NO RISK WOUND DESCRIPTIONS: Location of the wound: right labia majora Type of wound: Thickness: Partial Size: 0.5cm x 0.5cm x 0.1cm Tunneling: none Undermining: none Sinus Tract: none Presence of Exudate: Serous Amount: Light Color: Red Odor: None Periwound Skin Appearance: Normal Wound edges: approximated Pain (associated with wound): none at time of assessment How does patient state this happened? pt didn't state how this area occured Location of the wound: left breast Type of wound: fungal Thickness: Partial Size: 1.0cm x 5.5cm x 0.1cm Tunneling: none Undermining: none Sinus Tract: none Presence of Exudate: Serous Amount: Light Color: Red Odor: Musty Periwound Skin Appearance: Normal Wound edges: approximated Pain (associated with wound): none at time of assessment How does patient state this happened? pt didn't state how this happened Surface the patient is resting on: Position Pro SKIN PREVENTION RECOMMENDATION: 1. Pressure redistribution support surface as appropriate 2. Elevate heels 3. Remove boots/TEDS every shift and reapply 4. Head of bed 30 degrees as tolerated 5. Assess nutrition and hydration 6. Manage moisture 7. Avoid the use of containment devices while in bed 8. Use absorptive products on surfaces limit layers of linens on bed 9. Turn and reposition every 1-2 hours in bed and every 1 hour in chair as tolerated 10. Weight shifts every 15 minutes while up in chair 11. Offloading with pillows or device to keep heels elevated off bed 12. Monitor skin at least every shift 13. Inspect under medical devices twice a day WOUND TREATMENT RECOMMENDATIONS: Cleanse right labia majora with soap and water pat dry then apply calazime every shift and prn for soiling. Cleanse left breast with soap and water pat dry then apply nystatin powder BID. Wheelchair cushion when oob.
--- NOTE | 2018-11-30 10:56 | NUR ---
PHYSICAL THERAPY PAtient taking multiple pills one at a time currently. Will attempt later this date or at a later date, unable to particpate at this time. Thank you for this referral. Ara Townsend,PT
[2018-11-30 12:00] VITALS: BP 115/51
--- NOTE | 2018-11-30 12:10 | NUR ---
Occupational Therapy evaluation completed on 5 with full eval to follow. Precautions include fall risk, IV UE,parkinsons,chronic pain, nausea,migraines,moderate complexity level 04633 via chart review, testing and evaluation. Recommend OT per pOC and SNF to enable return home with family at max level of functioning. Thank you for this referral. Madhavi Curry OTR/L
[2018-11-30 14:14] LABS: BILIRUBIN NEGATIVE (NEGATIVE); BLOOD NEGATIVE (NEGATIVE); CLARITY CLEAR (CLEAR); COLOR YELLOW (YELLOW); GLUCOSE NEGATIVE (NEGATIVE); KETONE NEGATIVE (NEGATIVE); LEUKO ESTERASE NEGATIVE (NEGATIVE); NITRITE NEGATIVE (NEGATIVE); PH 7.5 (5.0-9.0); SPECIFIC GRAVITY 1.015 (1.005-1.030); UROBILINOGEN 0.2 E.U./dl (0.2-1.0)
[2018-11-30 14:32] LABS: BACTERIA 1+; EPITHELIAL CELLS 31-40
[2018-11-30 16:00] VITALS: BP 123/61
--- NOTE | 2018-11-30 18:45 | NUR ---
DR KWOK UPDATED ON URINE RESULTS, NNO, ALSO UPDATED ON CELEXA DOSAGE DIFFERENCE PER REQUEST. NEW ORDER RECEIVED
[2018-11-30 20:00] VITALS: BP 121/54
[2018-12-01] VITALS: BP 131/50
--- NOTE | 2018-12-01 07:46 | NUR ---
CHART CHECK COMPLETE
[2018-12-01 08:00] VITALS: BP 132/50
--- NOTE | 2018-12-01 08:43 | NUR ---
PHYSICAL THERAPY PAtient eating breakfast. Ara Townsend,PT
--- NOTE | 2018-12-01 09:45 | NUR ---
PHYSICAL THERAPY Patient evaluated on 5, full evaluation to follow. Continue with PT as per plan of care with fall, severe vertigo and acute debility precautions. Will require SNF. PAtient is moderate complexity via chart review, tests and evaluation: [id number]. Thank you for this referral. Ara Townsend,PT
--- NOTE | 2018-12-01 10:24 | NUR ---
PT C/O DIZZINESS. DR KWOK INFORMED. ORDER FOR ANTIVERT RECEIVED
--- NOTE | 2018-12-01 11:19 | NUR ---
Spoke to Dr. Villanueva. Patient is willing to go short term SNF. Discussed with patient and she is agreeable. She has been to [facility] previously and prefers not to return. When given a list of facilities she chose 1. [facility] and 2. [facility]. die lay out worker notified.
--- NOTE | 2018-12-01 11:20 | NUR ---
OT NOTE Pt was seen this A.M. 1:1 for 20 minute OT session. Upon arrival pt was sitting upright in the recliner. Pt identified by name and and had complaints of dizziness. Educated pt before starting to rise slow and on visual fixation technique. Pt completed sit to stand transfer from chair level with Stephanie and use of w/w for UE support. Upon rise pt stated she was still dizzy and after aprox 13 seconds of visual fixation technique pt stated it was a little better but still there. Challenged pt's static standing tolerance needed for increased I in self care tasks and functional transfers, pt was able to tolerate aprox 2-3 minutes at a time before sitting due to fatigue. Functional mobility completed into the bathroom with CGA and use of w/w for UE support. Pt transferred on to standard commode with CGA and use of grab bar. Clothing management completed with modA due to having LOB when standing without UE support. Pt then transferred off standard commode with Stephanie due to low surface. She stood sink side while washing her hands with CGA. Pt then returned to the recliner where she was left sitting upright with call light in hand, tray table in place, and family member at bedside. Throughout entire session pt had reports of feeling dizzy and extra time given throughout due to slow rate of performance. Continue with rec D/C plan to SNF. KAREN Oshea/[place]
[2018-12-01 12:00] VITALS: BP 128/55
[2018-12-01 16:00] VITALS: BP 123/48
[2018-12-01 20:00] VITALS: BP 145/58
[2018-12-02] VITALS: BP 160/74; BP 173/72
--- NOTE | 2018-12-02 05:03 | NUR ---
Upon discharge recommend patient to follow up for wound care in outpatient setting continue current wound care orders at discharging facility.
--- NOTE | 2018-12-02 09:20 | NUR ---
OT NOTE Pt was seen this A.M. 1:1 for 15 minute OT session. Upon arrival pt was sitting upright in the recliner. Pt identified by name and and had complaints of dizziness and nausea. Sit to stand completed from chair level with Stephanie and use of w/w for UE support. Upon inital rise pt had complaints of increased dizziness. Pt had good carry over of visual fixation techniques and after aprox 10 seconds pt stated it had slowed down. Functional mobility completed into the bathroom with CGA and use of w/w while therapist managed IV pole. Pt transferred on/off standard commode with CGA and use of w/w. Clothing management completed with modA and toilet hygiene completed with Stephanie. Pt then stood sink side while washing her hands with CGA. Functional mobility completed back to the recliner where she was left sitting upright with call light in hand, tray table in place, and family member at bedside. Continue with rec D/C plan to SNF. COREEN Oshea
--- NOTE | 2018-12-02 09:27 | NUR ---
patient requesting referral to 1. [facility] or 2. [facility], stating she will not go to [facility]. Contacted [facility] and [facility]. [facility] is out of network, faxed referral to [facility], will require a precert. Waiting on review/acceptance.
[2018-12-02 12:00] VITALS: BP 146/65
--- NOTE | 2018-12-02 12:17 | NUR ---
[facility] stating patient's insurance is out of network and her out of network benefits are a 70/30 split. Patient would be responsible for 30% of the entire bill starting day 1.
--- NOTE | 2018-12-02 12:23 | NUR ---
Spoke to patient and her who is at the bedside regarding [facility] being out of network and it would be a cost of 70/30. Patient states [facility] will be ok. Back up is [place]. case planner notified.
--- NOTE | 2018-12-02 12:40 | NUR ---
Patient now asking for a referral to [facility] that is in network with her insurance. Contacted facility and faxed referral. will require precert, waiting on review/acceptance.
--- NOTE | 2018-12-02 14:15 | NUR ---
Patient accepted to [facility], requires precert, waiting for auth.
--- NOTE | 2018-12-02 15:45 | NUR ---
PHYSICAL THERAPY informed consent given, pt identified by name and . pt presented sitting in chair, family member at bedside. STS and stand to sit multiple times CGA. Static standing balance 1min no AD SBA, no LOB presented, seated rest and then stood for another 1min eyes closed without AD, SBA no LOB presented. Dynamic standing balance reaching B UE across midline x3 less with L shldr d/t arthritis. Walked 10ft x1, 20ft x1 wh walker CGA, seated rests in between v/c to reach hands back before sitting to avoid injury. TUG test 1min 12sec wh walker CGA, no LOB presented.Ended treatment pt sitting in chair, call light and belongings in reach, family member at bedside. 1:[address] MANAGER [address] J[address]AD MANAGER
[2018-12-02 16:00] VITALS: BP 136/57
--- NOTE | 2018-12-02 16:08 | NUR ---
OCCUPATIONAL THERAPY CO-SIGN I approve of the Occupational Therapy notes written above. DALE HOLLOWAY OTR/[place]
--- NOTE | 2018-12-02 17:05 | NUR ---
Discharge instructions reviewed with patient/family. Patient receptive and verbalizes understanding. Follow-up care arranged. Written instructions given to patient/family. WENT OVER DISCHARGE PACKET WITH PATIENT. HEART MONITOR REMOVED AND PLACED IN NURSES STATION. IV REMOVED, PATIENT TOLERATED WELL. PATIENT REFUSED DISCHARGE PICTURES OF LABIA WOUND. PATIENT GOING TO FOLLOW UP WITH PCP ON WEDNESDAY. DECLINES ANY NEEDS OR CONCERNS AT THIS TIME. REFUSES THE NEED FOR A WHEELCHAIR. PATIENT AMBULATED OFF FLOOR AT THIS TIME. ALL BELONGINGS WITH PATIENT. JITENDRA MEYER
[2018-12-02 20:00] VITALS: BP 144/48
--- NOTE | 2018-12-02 20:52 | NUR ---
PATIENT IS RESTING IN BED WITH EASY AND REGULAR RESPERS ON ROOM AIR. ASSESSMENT IS COMPLETE WITH NO C/O OR S/S OF DISTRESS NOTED AT THIS TIME. BED IS LOW, LOCKED, ALARMED, AND CALL LIGHT IS WITHIN REACH. FAMILY VISITING PATIENT AT THIS TIME. SEE SHIFT ASSESSMENT.
[2018-12-03] VITALS: BP 147/65
[2018-12-03 07:32] LABS: CREATININE 0.43 mg/dL (0.55-1.02)
[2018-12-03 12:00] VITALS: BP 140/86
[2018-12-03 16:00] VITALS: BP 139/57
[2018-12-03 20:00] VITALS: BP 145/56
--- NOTE | 2018-12-03 22:41 | NUR ---
DR. KWOK CONTACTED AT THIS TIME FOR PATIENT C/O NAUSEA. SEE NEW ORDERS.
[2018-12-04] VITALS: BP 156/77
[2018-12-04 08:00] VITALS: BP 120/80
--- NOTE | 2018-12-04 08:00 | NUR ---
YOLANDA PROVIDED, ASSISTANCE UP TO CHAIR.
--- NOTE | 2018-12-04 11:00 | NUR ---
UP IN HALLS W/ FAMILY.
[2018-12-04 12:00] VITALS: BP 135/62
--- NOTE | 2018-12-04 15:26 | NUR ---
MEDICATED WITH PO M.O.M. ORDERED PER PT REQUEST FOR C/O CONSTIPATION. FAMILY IN TO VISIT OFF AND ON ALL DAY. QUESTIONS ANSWERED.
[2018-12-04 16:00] VITALS: BP 115/78
--- NOTE | 2018-12-04 17:00 | NUR ---
MEDICATION EFFECTIVE FOR CONSTIPATION.
[2018-12-04 20:00] VITALS: BP 109/51
--- NOTE | 2018-12-04 20:50 | NUR ---
PT SITTING UP IN CHAIR. NO DISTRESS NOTED. WILL MONITOR
[2018-12-05] VITALS: BP 135/53
--- NOTE | 2018-12-05 06:14 | NUR ---
PT RESTING IN BED, EYES CLOSED. NO DISTRESS NOTED. WILL MONITOR
[2018-12-05 06:45] LABS: HEMATOCRIT 35.3 % (37.0-47.0); HEMOGLOBIN 11.8 g/dl (12.0-16.0); MEAN CORPUSCULAR HGB 30.4 pg (27.0-31.0); MEAN CORPUSCULAR HGB CONC 33.4 g/dl (33.0-37.0); MEAN PLATELET VOLUME 12.3 fl (9.6-12.3); PLATELET COUNT AUTOMATED 105 10*3/uL (130-400); RED BLOOD COUNT 3.88 10*6/uL (4.10-5.10); RED CELL DISTRI WIDTH 15.8 % (0-14.5); WHITE BLOOD COUNT 4.8 10*3/uL (4.8-10.8)
[2018-12-05 07:11] LABS: BASOPHILS 1 % (0-1); PLATELET SUFFICIENCY LOW (NORMAL); TOTAL CELLS COUNTED 100 #CELLS
[2018-12-05 07:12] LABS: OVALOCYTES FEW; SCHISTOCYTES FEW
[2018-12-05 08:00] VITALS: BP 148/88
--- NOTE | 2018-12-05 08:10 | NUR ---
PHYSICAL THERAPY checked on pt this morning, pt had just received breakfast, will check back at a later time. CHERISE JORDAN CAPACITOR ASSEMBLER
--- NOTE | 2018-12-05 08:57 | NUR ---
PHYSICAL THERAPY informed consent given, pt identified by name and . pt presented sitting in chair pulse 70bpm. 5x STS CGA 36 seconds. Static standing balance 1min CGA no AD, no LOB presented, continued to dynamic standing balance reaching B UE across midline x3 challenging weight shift L less than R d/t L shldr pain, 1 hand on AD no LOB presented CGA. Walked 20ft x1 CGA wh walker. TUG test 1min 23sec wh walker CGA v/c for direction, no LOB presented pulse 100bpm. After a seated rest static standing balance with eyes closed 1min, 1 hand on AD pt able to correct self with LOB, then pt stated she needed to use the restroom, walked 10ft wh walker CGA into bathroom. Ended treatment pt sitting on toilet, instructed to pull call light string when done to alert nursing staff. 1:1 treatment with CLEAT BLANKER 15min. CHERISE JORDAN
[2018-12-05 09:00] VITALS: BP 136/84
--- NOTE | 2018-12-05 09:13 | NUR ---
OT NOTE Pt was seen this A.M. 1:1 for 20 minute OT session. Upon arrival pt was sitting upright on the commode. Pt identified by name and and had complaints of minor dizziness. Pt required modA for doffing and donning of pull ups. Pt transferred off standard commode with modA and use of grab bar. Pt then stood sink side while washing her hands with CGA for safety. While reaching for paper towels pt had LOB to the R due to reaching out of a safe distance, LOB was corrected with Stephanie. Educated pt to step closer to an item when reaching versus reaching out of unsafe distance. functional mobility completed back to the recliner with CGA while therapist managed IV pole. Pt had fair walker safety while occasionaly picking all four points up increasing risk of falls. Multiple sit to stand transfers completed from chair level with Stephanie and good hand placement on arm rest. Challenged pt's dynamic standing tolerance needed for increased I in self care tasks and functional transfers, pt was able to tolerate aprox 2 minutes at a time before having increased complaints of dizziness. Pt had good carry over of visual fixation techniques previously educated on. Pt was left sitting upright in recliner with call light in hand, tray table in place, and phone in reach. Continue with rec D/C plan to SNF. KAREN Oshea/[place]
[2018-12-05 12:00] VITALS: BP 119/44
--- NOTE | 2018-12-05 12:37 | NUR ---
Updated clincals and therapy notes faxed to [facility] for precert. Waiting on auth.
--- NOTE | 2018-12-05 13:10 | NUR ---
PHYSICAL THERAPY Patient seen this pm 1:1 for therapy visit and was sitting up in bedside chair with a family member present upon therapist arrival. Patient voices no new c/o's at this time with continuos IV treatment and transfers sit to stand with Mod A x 1. Patient ambulates Min/CGA, wh walker, 50'x 1, demonstrating decreased stride and "waddling" gait pattern. Patient fatigues quickly and very unsteady during all turns. Patient returned to bathroom completing toilet transfer and upon family/caregiver request remained under family Supervision. Will continue per POC as tolerated, total treatment time 13 minutes. Bruno Carson, INSTRUCTIONAL MATERIALS DIRECTOR
--- NOTE | 2018-12-05 14:28 | NUR ---
Patient just received auth for patient to go to [facility] and can go today if medically stable for discharge
--- NOTE | 2018-12-05 14:30 | NUR ---
REPORT CALLED TO ALONZO FOOTE AT [facility].
--- NOTE | 2018-12-05 14:36 | NUR ---
patient discharged to [facility], transporting at 3PM via private car. Nh notified, dc info faxed.
--- NOTE | 2018-12-05 16:07 | NUR ---
Discharge instructions reviewed with patient/family. Patient receptive and verbalizes understanding. Follow-up care arranged. Written instructions given to patient/family. SHAMAR SALOMON
--- NOTE | 2018-12-06 07:50 | NUR ---
PHYSICAL THERAPY CO-SIGN I approve of the Phyical Therapy notes written above. ROBYN MOORE PT
== END 2018-12-05 16:07 | disposition other institution (70) | DRG 149 ==
LOC: ED 11:12 → 5E 13:59 → EDHOLD 13:59 → 5E 14:23
PROVIDERS: Emergency Medicine; Internal Medicine Nephrology; ADMIT Internal Medicine
DX: R42 Dizziness and giddiness (principal); E44.0 Moderate protein-calorie malnutrition; R74.8 Abnormal levels of other serum enzymes; R26.81 Unsteadiness on feet; D72.819 Decreased white blood cell count, unspecified; D69.6 Thrombocytopenia, unspecified; R74.0 Nonspecific elevation of levels of transaminase and lactic acid dehydrogenase [LDH]; G43.909 Migraine, unspecified, not intractable, without status migrainosus; E87.8 Other disorders of electrolyte and fluid balance, not elsewhere classified; R82.71 Bacteriuria; M06.9 Rheumatoid arthritis, unspecified; G89.29 Other chronic pain; E11.9 Type 2 diabetes mellitus without complications; G20 Parkinson's disease; F41.9 Anxiety disorder, unspecified; R30.0 Dysuria; R10.32 Left lower quadrant pain; I11.0 Hypertensive heart disease with heart failure; I50.9 Heart failure, unspecified; M13.0 Polyarthritis, unspecified; K21.9 Gastro-esophageal reflux disease without esophagitis; E66.01 Morbid (severe) obesity due to excess calories; Z96.659 Presence of unspecified artificial knee joint; K13.79 Other lesions of oral mucosa; I48.0 Paroxysmal atrial fibrillation; M81.0 Age-related osteoporosis without current pathological fracture; G25.81 Restless legs syndrome; I35.8 Other nonrheumatic aortic valve disorders; M43.16 Spondylolisthesis, lumbar region; Z90.49 Acquired absence of other specified parts of digestive tract; Z90.711 Acquired absence of uterus with remaining cervical stump; Z87.440 Personal history of urinary (tract) infections; Z87.01 Personal history of pneumonia (recurrent); Z82.49 Family history of ischemic heart disease and other diseases of the circulatory system; Z83.3 Family history of diabetes mellitus; Z82.61 Family history of arthritis; Z88.0 Allergy status to penicillin; Z88.2 Allergy status to sulfonamides; Z88.1 Allergy status to other antibiotic agents; Z88.8 Allergy status to other drugs, medicaments and biological substances; Z91.048 Other nonmedicinal substance allergy status; Z79.899 Other long term (current) drug therapy; Z79.52 Long term (current) use of systemic steroids; Z79.2 Long term (current) use of antibiotics; Z68.24 Body mass index [BMI] 24.0-24.9, adult

== ENCOUNTER → 2019-02-28 | Outpatient (CLI) | payer OTHER ==
[~2019-02-28] MED LIST changes: +B12,B-12,B 12500 MC1 PO; +CITALOPRAM20 MG PO; +MELATONIN5 M6 PO; +PROBIOTIC1 EAC1 PO; +SINEMET 25-1001 EACH PO; +TOPIRAMATE50 M2 PO
[2019-02-28 11:47] LABS: BASO % 0.2 % (0.0-1.0); EOS # 0.1 10*3/uL (0.0-0.4); HEMATOCRIT 43.1 % (37.0-47.0); HEMOGLOBIN 14.1 g/dl (12.0-16.0); LYMPH # 0.4 10*3/uL (1.3-4.4); LYMPH % 10.3 % (27.0-41.0); MEAN CELL VOLUME 91.7 fl (81.0-99.0); MEAN CORPUSCULAR HGB CONC 32.7 g/dl (33.0-37.0); MONO # 0.5 10*3/uL (0.1-1.0); MONO % 13.1 % (3.0-9.0); NEUT % 73.4 % (47.0-73.0); PLATELET COUNT AUTOMATED 73 10*3/uL (130-400); RED CELL DISTRI WIDTH 13.3 % (0-14.5); WHITE BLOOD COUNT 4.1 10*3/uL (4.8-10.8)
[2019-02-28 12:08] LABS: CREATININE 0.55 mg/dL (0.55-1.02); SGOT/AST 30 IU/L (3-35); SGPT/ALT 15 U/L (12-78)
[2019-02-28 12:19] LABS: BUN 19 mg/dl (7-24); CHLORIDE 106 mmol/L (98-107); CREATININE 0.55 mg/dL (0.55-1.02); SODIUM 141 mmol/L (136-145)
== END | disposition home or self-care (01) ==
LOC: LAB 10:57
PROVIDERS: Internal Medicine; Internal Medicine Rheumatology
DX: M05.79 Rheumatoid arthritis with rheumatoid factor of multiple sites without organ or systems involvement (principal)

== ENCOUNTER → 2019-05-31 | Outpatient (CLI) | payer OTHER ==
[2019-05-31 09:48] LABS: HEMATOCRIT 43.4 % (37.0-47.0); MEAN CELL VOLUME 91.8 fl (81.0-99.0); MEAN CORPUSCULAR HGB 29.6 pg (27.0-31.0); MEAN CORPUSCULAR HGB CONC 32.3 g/dl (33.0-37.0); PLATELET COUNT AUTOMATED 64 10*3/uL (130-400); RED BLOOD COUNT 4.73 10*6/uL (4.10-5.10); RED CELL DISTRI WIDTH 14.6 % (0-14.5); WHITE BLOOD COUNT 9.5 10*3/uL (4.8-10.8)
[2019-05-31 10:38] LABS: BUN 18 mg/dl (7-24); CHLORIDE 108 mmol/L (98-107); CREATININE 0.52 mg/dL (0.55-1.02); POTASSIUM 3.6 mmol/L (3.5-5.1); SGOT/AST 18 IU/L (3-35); SGPT/ALT 13 U/L (12-78); SODIUM 139 mmol/L (136-145)
[2019-05-31 10:51] LABS: TOTAL CELLS COUNTED 100 #CELLS
[2019-05-31 10:52] LABS: PLATELET SUFFICIENCY LOW (NORMAL)
== END | disposition home or self-care (01) ==
LOC: LAB 08:44
PROVIDERS: Internal Medicine Rheumatology
DX: I51.7 Cardiomegaly (principal); M05.79 Rheumatoid arthritis with rheumatoid factor of multiple sites without organ or systems involvement; D69.3 Immune thrombocytopenic purpura; J20.9 Acute bronchitis, unspecified

== ENCOUNTER → 2019-07-24 | Outpatient (CLI) | payer OTHER ==
[2019-07-24 11:58] LABS: BASO % 0.4 % (0.0-1.0); EOS # 0.1 10*3/uL (0.0-0.4); EOS % 2.3 % (1.0-4.0); HEMOGLOBIN 12.1 g/dl (12.0-16.0); LYMPH # 0.4 10*3/uL (1.3-4.4); LYMPH % 7.8 % (27.0-41.0); MEAN CELL VOLUME 92.7 fl (81.0-99.0); MEAN CORPUSCULAR HGB 29.5 pg (27.0-31.0); MEAN CORPUSCULAR HGB CONC 31.8 g/dl (33.0-37.0); MEAN PLATELET VOLUME 11.8 fl (9.6-12.3); MONO % 17.3 % (3.0-9.0); NEUT % 71.1 % (47.0-73.0); NUCLEATED RED BLOOD CELL 0.4 % (0.0-0.0); PLATELET COUNT AUTOMATED 124 10*3/uL (130-400); RED CELL DISTRI WIDTH 16.3 % (0-14.5); WHITE BLOOD COUNT 5.6 10*3/uL (4.8-10.8)
[2019-07-24 12:24] LABS: BUN 14 mg/dl (7-24); CHLORIDE 108 mmol/L (98-107); CREATININE 0.54 mg/dL (0.55-1.02); POTASSIUM 4.2 mmol/L (3.5-5.1); SGOT/AST 25 IU/L (3-35); SGPT/ALT 12 U/L (12-78); SODIUM 139 mmol/L (136-145)
== END | disposition home or self-care (01) ==
LOC: LAB 10:52
PROVIDERS: Physician Assistant
DX: M05.79 Rheumatoid arthritis with rheumatoid factor of multiple sites without organ or systems involvement (principal); E78.00 Pure hypercholesterolemia, unspecified

== ENCOUNTER → 2019-08-17 | Outpatient (CLI) | payer OTHER ==
[2019-08-17 17:22] LABS: ALKALINE PHOSPHATASE 83 U/L (45-117); BUN 21 mg/dl (7-24); CHLORIDE 105 mmol/L (98-107); CREATININE 0.65 mg/dL (0.55-1.02); SGOT/AST 27 IU/L (3-35); SGPT/ALT 10 U/L (12-78); SODIUM 138 mmol/L (136-145); TOTAL PROTEIN 7.2 gm/dL (6.4-8.2)
== END | disposition home or self-care (01) ==
LOC: LAB 16:33
PROVIDERS: Internal Medicine
DX: J18.0 Bronchopneumonia, unspecified organism (principal)

== ENCOUNTER → 2019-08-22 | Outpatient (CLI) | payer MEDICARE ==
[2019-08-22 10:07] LABS: BASO % 0.4 % (0.0-1.0); EOS # 0.1 10*3/uL (0.0-0.4); EOS % 1.9 % (1.0-4.0); HEMATOCRIT 43.1 % (37.0-47.0); HEMOGLOBIN 14.1 g/dl (12.0-16.0); LYMPH # 0.4 10*3/uL (1.3-4.4); LYMPH % 5.6 % (27.0-41.0); MEAN CELL VOLUME 92.5 fl (81.0-99.0); MEAN CORPUSCULAR HGB 30.3 pg (27.0-31.0); MEAN CORPUSCULAR HGB CONC 32.7 g/dl (33.0-37.0); NEUT # 5.8 10*3/uL (2.3-7.9); NEUT % 77.9 % (47.0-73.0); PLATELET COUNT AUTOMATED 83 10*3/uL (130-400); RED BLOOD COUNT 4.66 10*6/uL (4.10-5.10); RED CELL DISTRI WIDTH 15.1 % (0-14.5); WHITE BLOOD COUNT 7.4 10*3/uL (4.8-10.8)
== END | disposition home or self-care (01) ==
LOC: LAB 09:29
PROVIDERS: Internal Medicine
DX: J18.9 Pneumonia, unspecified organism (principal)

== ENCOUNTER → 2019-08-23 | Outpatient (CLI) | payer MEDICARE | END | disposition home or self-care (01) | LOC: ORTHO 00:17 | DX: M16.11 Unilateral primary osteoarthritis, right hip (principal); M25.551 Pain in right hip ==

== ENCOUNTER → 2019-08-28 | Outpatient (CLI) | payer MEDICARE | END | disposition home or self-care (01) | LOC: MAMMO 14:08 | DX: Z12.31 Encounter for screening mammogram for malignant neoplasm of breast (principal) ==

== ENCOUNTER → 2019-11-02 | Outpatient (CLI) | payer MEDICARE | END | disposition home or self-care (01) | LOC: US 10:37 | DX: R60.0 Localized edema (principal) ==

== ENCOUNTER → 2019-12-25 | Outpatient (CLI) | payer MEDICARE ==
[~2019-12-25] MED LIST changes: +ASPIRIN ADULT L81 M1 PO; +CIPROFLOXACIN500 M4 PO; +DONEPEZIL HCL10 MG PO
[2019-12-25 18:52] LABS: BASO % 0.7 % (0.0-1.0); EOS # 0.1 10*3/uL (0.0-0.4); EOS % 2.1 % (1.0-4.0); LYMPH # 0.7 10*3/uL (1.3-4.4); LYMPH % 11.7 % (27.0-41.0); MEAN CELL VOLUME 88.9 fl (81.0-99.0); MEAN CORPUSCULAR HGB 29.1 pg (27.0-31.0); MEAN CORPUSCULAR HGB CONC 32.7 g/dl (33.0-37.0); MONO # 0.8 10*3/uL (0.1-1.0); MONO % 13.9 % (3.0-9.0); NEUT # 4.1 10*3/uL (2.3-7.9); NEUT % 70.9 % (47.0-73.0); PLATELET COUNT AUTOMATED 74 10*3/uL (130-400); RED BLOOD COUNT 4.95 10*6/uL (4.10-5.10); RED CELL DISTRI WIDTH 13.6 % (0-14.5); WHITE BLOOD COUNT 5.8 10*3/uL (4.8-10.8)
[2019-12-25 19:17] LABS: BUN 14 mg/dl (7-24); CHLORIDE 107 mmol/L (98-107); CREATININE 0.72 mg/dL (0.55-1.02); POTASSIUM 3.8 mmol/L (3.5-5.1); SGOT/AST 16 IU/L (3-35); SGPT/ALT 11 U/L (12-78); SODIUM 137 mmol/L (136-145)
[2019-12-25 19:23] LABS: TOTAL CELLS COUNTED 100 #CELLS
[2019-12-25 19:24] LABS: PLATELET SUFFICIENCY LOW (NORMAL)
[2019-12-25 19:25] LABS: BURR CELLS FEW; OVALOCYTES FEW
== END | disposition home or self-care (01) ==
LOC: LAB 18:20
PROVIDERS: Internal Medicine Rheumatology
DX: M05.79 Rheumatoid arthritis with rheumatoid factor of multiple sites without organ or systems involvement (principal)

== ENCOUNTER 2019-12-29 21:05 | Inpatient (IN) | payer MEDICARE ==
[~2019-12-29] VITALS: Ht 152.4 cm; Wt 75.9 kg
[~2019-12-29 21:05] MED LIST changes: -ASPIRIN ADULT L81 M1 PO; -CIPROFLOXACIN500 M4 PO; -DONEPEZIL HCL10 MG PO
[2019-12-29 21:06] VITALS: BP 115/53
[2019-12-29 22:18] LABS: BASO % 0.2 % (0.0-1.0); EOS % 0.1 % (1.0-4.0); HEMATOCRIT 43.1 % (37.0-47.0); LYMPH # 0.4 10*3/uL (1.3-4.4); MEAN CELL VOLUME 86.5 fl (81.0-99.0); MEAN CORPUSCULAR HGB 28.7 pg (27.0-31.0); MEAN CORPUSCULAR HGB CONC 33.2 g/dl (33.0-37.0); MEAN PLATELET VOLUME 12.8 fl (9.6-12.3); MONO # 0.8 10*3/uL (0.1-1.0); MONO % 7.2 % (3.0-9.0); NEUT # 9.3 10*3/uL (2.3-7.9); NEUT % 87.8 % (47.0-73.0); PLATELET COUNT AUTOMATED 88 10*3/uL (130-400); RED BLOOD COUNT 4.98 10*6/uL (4.10-5.10); RED CELL DISTRI WIDTH 13.4 % (0-14.5); WHITE BLOOD COUNT 10.6 10*3/uL (4.8-10.8)
[2019-12-29 22:27] LABS: ACT PARTIAL THROMBO TIME 28.1 SECONDS (20.0-32.1); INTERNATIONAL NORM RATIO 1.1 (2.0-3.5)
[2019-12-29 22:32] LABS: ALKALINE PHOSPHATASE 67 U/L (45-117); BUN 25 mg/dl (7-24); CHLORIDE 107 mmol/L (98-107); POTASSIUM 4.1 mmol/L (3.5-5.1); SGOT/AST 18 IU/L (3-35); SGPT/ALT 13 U/L (12-78); SODIUM 137 mmol/L (136-145); TOTAL PROTEIN 6.8 gm/dL (6.4-8.2)
[2019-12-29 22:50] LABS: TROPONIN I 0.071 ng/ml (<0.045)
[2019-12-30 01:00] VITALS: BP 102/78
--- NOTE | 2019-12-30 01:00 | NUR ---
A 74, admitted to [facility], under the services of CARMEN Silva MD with a diagnosis of rheumatoid arthritis, fall at home, and NSTEMI. Chief complaint is weakness and multiple falls.. Patient arrived via stretcher from ER. Dr Espinosa spoke with cardiology while pt was in ER. Monitor applied. Initial assessment completed. Vital signs taken and recorded. CARMEN SILVA MD notified of admission to the unit. Orders received. See assessment for past medical history, medications and allergies. Patient and/or family oriented to unit. [facility] visitation policy reviewed. Clothing/patient valuable form completed. Pt's medical history & medication list copied and placed on chart. LYNSEY INGRAM
--- NOTE | 2019-12-30 01:36 | NUR ---
DR Charles HUDSON NOTIFIED OF TROPONIN 0.134.
[2019-12-30] MEDS ORDERED: ASPIRIN ADULT L81 M1 PO (02:02)
[2019-12-30] MEDS ORDERED: DONEPEZIL HCL10 MG PO (02:03)
--- NOTE | 2019-12-30 02:20 | NUR ---
I, AGAIN, VERIFIED (VIA PHONE) THAT DR FAM DID SPEAK WITH DR BLACK (BISQUE WARE DIPPER FOR DR HUDSON) RE: PT'S TROPONIN'S AND RECOMMENDATION.
[2019-12-30 04:00] VITALS: BP 129/60
[2019-12-30 04:32] LABS: BASO % 0.3 % (0.0-1.0); EOS # 0.1 10*3/uL (0.0-0.4); EOS % 0.8 % (1.0-4.0); HEMATOCRIT 38.6 % (37.0-47.0); LYMPH % 12.9 % (27.0-41.0); MEAN CELL VOLUME 87.5 fl (81.0-99.0); MEAN CORPUSCULAR HGB 28.8 pg (27.0-31.0); MEAN CORPUSCULAR HGB CONC 32.9 g/dl (33.0-37.0); MEAN PLATELET VOLUME 12.9 fl (9.6-12.3); MONO # 0.8 10*3/uL (0.1-1.0); MONO % 9.8 % (3.0-9.0); NEUT # 5.9 10*3/uL (2.3-7.9); NEUT % 75.6 % (47.0-73.0); PLATELET COUNT AUTOMATED 77 10*3/uL (130-400); RED BLOOD COUNT 4.41 10*6/uL (4.10-5.10); RED CELL DISTRI WIDTH 13.3 % (0-14.5); WHITE BLOOD COUNT 7.8 10*3/uL (4.8-10.8)
[2019-12-30 04:54] LABS: BUN 23 mg/dl (7-24); CHLORIDE 110 mmol/L (98-107); CREATININE 0.49 mg/dL (0.55-1.02); POTASSIUM 3.9 mmol/L (3.5-5.1); SODIUM 139 mmol/L (136-145)
--- NOTE | 2019-12-30 05:53 | NUR ---
DR DIAZ NOTIFIED OF TROPONIN TRENDING DOWN WELL PLTS 88 12/28 AND NOW 77 THIS AM. PT DOZING. NO COMPLAINTS. PT STATES "I JUST WANNA GO TO SLEEP!" WHEN PT CARE IS BEING DONE.
--- NOTE | 2019-12-30 06:05 | NUR ---
UPON ASKING PT IF SHE WOULD LIKE SOMETHING TO DRINK OR IF SHE NEEDS TO URINATE AND SHE SAYS "NO" AND SQUEEZES HER EYES CLOSED AND TURNS HEAD AWAY.
--- NOTE | 2019-12-30 06:23 | NUR ---
LANEY CARE DONE FOR INCONTINENCE OF URINE IN OLD BRIEF. NEW BRIEF APPLIED.
--- NOTE | 2019-12-30 06:30 | NUR ---
DR DIAZ NOTIFIED OF PT C/O PAIN "ALL OVER" FROM HER RECENT FALLS. GRIMACING AND MOANING WE TURNED AND CLEANED HER PREVIOUSLY NOTED. HE STATES HE WILL ORDER SOMETHING FOR HER. THIS WAS CONVEYED TO PT.
--- NOTE | 2019-12-30 07:30 | NUR ---
DR BLACK HERE TO SEE PT, OK FOR [facility] NO NEW ORDERS FOR MINIMALLY ELEVATED TROP OLD RECORDS REQUESTED FROM [facility]
[2019-12-30 08:00] VITALS: BP 120/69
--- NOTE | 2019-12-30 08:17 | NUR ---
AVTAR FOR GENERALIZED JOINT PAIN
--- NOTE | 2019-12-30 09:17 | NUR ---
STATES JOINT PAIN HAS EASED AFTER NORCO
--- NOTE | 2019-12-30 10:39 | NUR ---
UP TO BSC X 2 ASSIST PT SEEMS NOT TO KNOW WHAT TO DO-NEEDED PROMPTS TO WALK/MOVE FEET THEN UP TO RECLINER, PT DID MUCH BETTER WITH WALKER, WALKED WITH MINIMAL ASSISTANCE
--- NOTE | 2019-12-30 10:46 | NUR ---
MEDICAL RECORDS RECIEVED FROM [facility] ON 03/18/17-NO STENOSIS, NO BLOCKAGES, NO INTERVENTIONS NEEDED
[2019-12-30 12:00] VITALS: BP 109/56
--- NOTE | 2019-12-30 14:30 | NUR ---
UP TO BSC X 2 ASSIST AND BACK TO RECLINER
[2019-12-30 16:00] VITALS: BP 110/64
[2019-12-30 20:00] VITALS: BP 107/47
--- NOTE | 2019-12-30 20:20 | NUR ---
NORCO GIVEN PER PT REQUEST FOR NECK AND SHOULDER PAIN RATED 6/10. PATIENT DESCRIBES THE PAIN A DULL ACHE. WILL CONTINUE TO MONITOR. CALL LIGHT WITHIN REACH.
--- NOTE | 2019-12-30 20:35 | NUR ---
BED BATH COMPLETE AND LINEN CHANGE PERFORMED. PATIENT WAS TRANSFERRED FROM CHAIR TO BSC. BATHED AND CHANGED, THEN TRANSFERRED TO BED USIN WALKER AND 2+ ASSIST. BED ALARM ACTIVATED, CALL LIGHT WITHIN REACH.
[2019-12-31] VITALS: BP 124/61
--- NOTE | 2019-12-31 | NUR ---
PT RESTING IN BED WITH EYES CLOSED, AWAKENS WITH EASE, ORIENTED. RESP NONLABORED. NO ACUTE DISTRESS NOTED. NO COMPLAINTS VOICED. CURT PATENT.
[2019-12-31 07:58] VITALS: BP 137/56
--- NOTE | 2019-12-31 08:09 | NUR ---
Awake and alert this AM, Up in chair , reminder given for need for Urine specimen. Taking breakfast well.
--- NOTE | 2019-12-31 08:54 | NUR ---
After breakfast pt. was assited to BSC in attempt to void to gain UC w/ CS. Brief was minimally wet and perineal area had foul odor. pt. was unable to void, thus assisted to bed for straight cath. Minimal amt urine obtained and sent. urine was jayson / cloudy and foul. irma area cleansed and clean brief on.
[2019-12-31 08:58] LABS: BILIRUBIN NEGATIVE (NEGATIVE); BLOOD TRACE-INTACT (NEGATIVE); CLARITY CLOUDY (CLEAR); COLOR YELLOW (YELLOW); GLUCOSE NEGATIVE (NEGATIVE); KETONE NEGATIVE (NEGATIVE); LEUKO ESTERASE 2+ (NEGATIVE); NITRITE NEGATIVE (NEGATIVE); SPECIFIC GRAVITY 1.025 (1.005-1.030); UROBILINOGEN 0.2 E.U./dl (0.2-1.0)
[2019-12-31 09:06] LABS: BACTERIA 4+; WBC TNTC wbc/hpf (0-5)
--- NOTE | 2019-12-31 09:20 | NUR ---
Spouse was called and updated .
--- NOTE | 2019-12-31 10:15 | NUR ---
Medicated for c/ o pain to left lower ribs and flank 03/25. States i am so sore.
--- NOTE | 2019-12-31 11:01 | NUR ---
States is still having pain, med helped a little.
[2019-12-31 12:00] VITALS: BP 105/71
--- NOTE | 2019-12-31 13:05 | NUR ---
took lunch well then assisted to BSC, very stiff and shuffles instead of walks, Uses walker .Dr. Gordillo in.
--- NOTE | 2019-12-31 13:32 | NUR ---
Assisted to BSC for large formed BM. irma care given and returned to chair.
--- NOTE | 2019-12-31 15:35 | NUR ---
To BSC then , medicated for c/o of pain left lower ribs , rubbing area under left breast, states pain is 9/10 . Medicated see e-mar.
[2019-12-31 16:00] VITALS: BP 125/45
--- NOTE | 2019-12-31 16:31 | NUR ---
States pain med helped to decrease pain to level 7/10. States always has pain some days worse than others. Supper ordered.
--- NOTE | 2019-12-31 18:19 | NUR ---
Up to BS .
[2019-12-31 20:00] VITALS: BP 123/51
--- NOTE | 2019-12-31 21:20 | NUR ---
NORCO GIVEN FOR UPPER BACK AND SHOULDER PAIN RATED 6/10 AND DESCRIBED A CONSTANT ACHE. WILL CONTINUE TO MONITOR AND REASSESS.
--- NOTE | 2019-12-31 22:10 | NUR ---
NORCO EFFECTIVE. PATIENT RESTING COMFORTABLY IN BED AND RATES PAIN A 4/10. WILL CONTINUE TO MONITOR.
[2020-01-01] VITALS: BP 116/56
--- NOTE | 2020-01-01 01:56 | NUR ---
ZOFRAN GIVEN PER PT REQUEST FOR NAUSEA. WILL CONTINUE TO MONITOR.
--- NOTE | 2020-01-01 02:30 | NUR ---
ZOFRAN EFFECTIVE. PATIENT SLEEPING AT THIS TIME. CALL LIGHT WITHIN REACH.
[2020-01-01 04:00] VITALS: BP 136/69
--- NOTE | 2020-01-01 04:00 | NUR ---
PATIENT UP TO THE BSC WITH 1+ ASSIST AND USE OF WALKER. BED LINENS CHANGED AT THIS TIME. NO PAIN, DISCOMFORT, SHORTNESS OF BREATHE OR NAUSEA NOTED AT THIS TIME. WILL CONTINUE TO MONITOR.
[2020-01-01 05:36] LABS: BUN 18 mg/dl (7-24); CHLORIDE 108 mmol/L (98-107); SODIUM 138 mmol/L (136-145)
[2020-01-01 06:18] LABS: BASO % 0.2 % (0.0-1.0); EOS # 0.1 10*3/uL (0.0-0.4); EOS % 2.2 % (1.0-4.0); HEMATOCRIT 35.3 % (37.0-47.0); LYMPH # 0.5 10*3/uL (1.3-4.4); LYMPH % 10.8 % (27.0-41.0); MEAN CELL VOLUME 88.5 fl (81.0-99.0); MEAN CORPUSCULAR HGB 28.8 pg (27.0-31.0); MEAN CORPUSCULAR HGB CONC 32.6 g/dl (33.0-37.0); MEAN PLATELET VOLUME 12.9 fl (9.6-12.3); MONO # 0.5 10*3/uL (0.1-1.0); NEUT # 3.5 10*3/uL (2.3-7.9); NEUT % 75.2 % (47.0-73.0); PLATELET COUNT AUTOMATED 79 10*3/uL (130-400); RED BLOOD COUNT 3.99 10*6/uL (4.10-5.10); RED CELL DISTRI WIDTH 13.3 % (0-14.5); WHITE BLOOD COUNT 4.6 10*3/uL (4.8-10.8)
--- NOTE | 2020-01-01 07:18 | NUR ---
FAREED DIALLO [id number] Please refer to the physician's history and physical for past medical history, comorbid conditions, and allergies. Diagnosis: FALL AT HOME,NSTEMI Basil Score: 12,MODERATE RISK WOUND DESCRIPTIONS: This nurse as well as Ann Bermudez RN assessed patient Wound Number: 1 Location of the wound: left abdominal fold Type of wound: fungal Tunneling: none Undermining: none Sinus Tract: none Presence of Exudate: none Amount: none Color: Shattuck and blanchable Odor: musty Periwound Skin Appearance: Normal Wound edges: approximated Pain (associated with wound): tender at time of assessment How does patient state this happened? pt stated this started quite awhile ago pt states she follow with the Doctors out on [place] Surface the patient is resting on: Isoflex SKIN PREVENTION RECOMMENDATION: 1. Pressure redistribution support surface as appropriate 2. Elevate heels 3. Remove boots/TEDS every shift and reapply 4. Head of bed 30 degrees as tolerated 5. Assess nutrition and hydration 6. Manage moisture 7. Avoid the use of containment devices while in bed 8. Use absorptive products on surfaces limit layers of linens on bed 9. Turn and reposition every 1-2 hours in bed and every 1 hour in chair as tolerated 10. Weight shifts every 15 minutes while up in chair 11. Offloading with pillows or device to keep heels elevated off bed 12. Monitor skin at least every shift 13. Inspect under medical devices twice a day WOUND TREATMENT RECOMMENDATIONS: Continue nystatin powder every 12 hours to left abdominal fold
--- NOTE | 2020-01-01 07:45 | NUR ---
UP TO BSC FOR 20CC URINE AFTER BEING INC IN BRIEF
[2020-01-01 08:00] VITALS: BP 129/51
--- NOTE | 2020-01-01 08:03 | NUR ---
Nursing screen and Occupational Therapy referral received. Thank you. Madhavi Curry OTr/L
--- NOTE | 2020-01-01 08:04 | NUR ---
PHYSICAL THERAPY Screen and PT eval received will follow thank you Courtney Clark PT
--- NOTE | 2020-01-01 09:00 | NUR ---
Order Processing Manager in to talk to patient. Patient states lives at home with her . There are 0 steps in the home. She has a chair lift. Physician: Dr. Bipin Gordillo [facility]: [facility]: would like [facility] RN/therapy on discharge Patient's level of ADLs: MINIMAL ASSIST Patient has working utilities: yes DME: walker Follow-up physician's appointment after d/c: she prefers to make her own follow up appt after discharge Does patient want to access PORTAL?: no Discharge plan discussed with patient. She lives at home with her . She is independent in her ADLs and ambulates with a walker. Discussed short term SNF and she refuses. Discussed home health care services and she is agreeable. When provided with a list of agencies she chose [facility] and would like a nurse and therapy. When medically stable she will be discharged to home with [facility] services. NATALEE AVILES
--- NOTE | 2020-01-01 09:03 | NUR ---
PAO spoke with of patient on this date. expressd that under no circumstances did he want his to go to a facility "due to the times we live in". requested home health. also presented with billing quesitons and was directed to the billing department.
--- NOTE | 2020-01-01 09:30 | NUR ---
BACK TO BSC FROM RECLINER X 2 ASSIST, PT CONTINUES TO BE INC GOMEZ DAVIS IN BRIEF
--- NOTE | 2020-01-01 10:30 | NUR ---
COMPLETE BATH GIVEN IN CHAIR, PT ENC TO HELP AND BRUSH TEETH
--- NOTE | 2020-01-01 11:36 | NUR ---
Nutritonal Support Services Note: Pt is eating 100% of meals. Regular diet as ordered. Excoriated areas noted to left abdominal fold and groin area. Continue to encourage good intake of meals. No other nutrition intervention needed at this time. Will follow. Sue Stephens Rdn Ld
--- NOTE | 2020-01-01 11:50 | NUR ---
UP TO BSC X 2 ASISST, AFTER BEING INC OF URINE IN BRIEF CONTINUES TO REPEAT "IS IT TIME TO GO HOME" ORIENTED TO DATE AND TIME AND PLACE, WANTS TO GO HOME AWAITING DR KWOK
[2020-01-01 12:00] VITALS: BP 109/46
--- NOTE | 2020-01-01 12:46 | NUR ---
OT NOTE Occupational therapy orders received and chart reviewed. Patient was out of the room getting an X-Ray per nursing at this time. Will follow up with the patient when available. Thank you. Judy Jurado, OTR/L
--- NOTE | 2020-01-01 12:50 | NUR ---
PHYSICAL THERAPY Attempted to see pt for evaluation however unavailable as out of room to xray for tests, will follow thank you. Courtney Clark PT
--- NOTE | 2020-01-01 13:43 | NUR ---
US OF LOWER LEGS COMPLETED ECHO IN PROCESS
--- NOTE | 2020-01-01 14:14 | NUR ---
DR HUDSON IN TO SEE PT
[2020-01-01 16:00] VITALS: BP 116/58
--- NOTE | 2020-01-01 17:55 | NUR ---
DR KWOK IN TO SEE PT
--- NOTE | 2020-01-01 18:21 | NUR ---
TRANSFERRED TO [id number] REPORT GIVEN PT REMAINS IN RECLINER W/ BODY ALARM
--- NOTE | 2020-01-01 19:44 | NUR ---
PATIENT AWAKE SITTING UP IN CHAIR. ATTEMPTED TO ASSIST PT TO BEDSIDE WITH ASSIST X2. PT UNABLE TO BEAR WEIGHT AND REPEATS "I CAN'T STAND." RN X2 ABLE TO PIVOT PATIENT TO BED. PT STATES BRIEF IS SOAKED. PT CLEANED UP AND BRIEF CHANGED. PT PULLED UP AND REPOSITIONED IN BED FOR COMFORT. BED LEFT LOCKED IN LOW POSITION, BED ALARM INTACT, CALL LIGHT IN REACH. WILL MONITOR.
[2020-01-01 20:00] VITALS: BP 123/44
--- NOTE | 2020-01-01 20:26 | NUR ---
PT REQUESTED AND RECEIVED PO TYLENOL FOR C/O PAIN "ALL OVER" RATED 6/10. WILL MONITOR EFFECTIVENESS. CALL LIGHT IN REACH. BED ALARM INTACT.
--- NOTE | 2020-01-01 21:25 | NUR ---
EARLIER MEDICATIONS APPEAR EFFECTIVE. PT ASLEEP IN BED. NO S/S OF DISTRESS NOTED. WILL MONITOR. CALL LIGHT IN REACH.
[2020-01-02] VITALS: BP 140/55
--- NOTE | 2020-01-02 02:27 | NUR ---
PT MEDICATED WITH PO NORCO FOR C/O L RIB PAIN & "ALL OVER" PAIN RATED 10/10. PT REPOSITIONED ON R SIDE FOR COMFORT. WILL MONITOR EFFECTIVENESS. CALL LIGHT IN REACH.
--- NOTE | 2020-01-02 03:19 | NUR ---
EARLIER MEDICATIONS EFFECTIVE PER PT. DENIES ANY FURTHER NEEDS. WILL MONITOR. CALL LIGHT IN REACH. BED ALARM INTACT.
[2020-01-02 06:45] LABS: BUN 14 mg/dl (7-24); CHLORIDE 111 mmol/L (98-107); CREATININE 0.43 mg/dL (0.55-1.02); POTASSIUM 3.9 mmol/L (3.5-5.1); SODIUM 141 mmol/L (136-145)
--- NOTE | 2020-01-02 08:00 | NUR ---
Asphalt Paver Operator in to see patient. No new needs or request at this time. When medically stable she will be discharged to home with [facility] services.
[2020-01-02 08:02] LABS: BASO % 0.5 % (0.0-1.0); EOS # 0.1 10*3/uL (0.0-0.4); EOS % 2.4 % (1.0-4.0); HEMATOCRIT 36.2 % (37.0-47.0); LYMPH # 0.6 10*3/uL (1.3-4.4); LYMPH % 15.7 % (27.0-41.0); MEAN CELL VOLUME 88.7 fl (81.0-99.0); MEAN CORPUSCULAR HGB 29.2 pg (27.0-31.0); MEAN CORPUSCULAR HGB CONC 32.9 g/dl (33.0-37.0); MONO # 0.7 10*3/uL (0.1-1.0); MONO % 19.2 % (3.0-9.0); NEUT # 2.3 10*3/uL (2.3-7.9); NEUT % 61.7 % (47.0-73.0); PLATELET COUNT AUTOMATED 76 10*3/uL (130-400); RED BLOOD COUNT 4.08 10*6/uL (4.10-5.10); RED CELL DISTRI WIDTH 13.6 % (0-14.5); WHITE BLOOD COUNT 3.8 10*3/uL (4.8-10.8)
--- NOTE | 2020-01-02 08:15 | NUR ---
Occupational Therapy evaluation completed on four with full evaluation to follow. Recommend occupational therapy per plan of care and SNF upon discharge. If refused, home with SN, OT, and PT with 08/03 supervision assist. Thank you for this referral. Judy Jurado OTR/L
--- NOTE | 2020-01-02 08:20 | NUR ---
Physical Therapy evaluation completed on fourth floor with full evaluation to follow. Recommend physical therapy per plan of care and would benefit from SNF at discharge pt high fall risk, otherwise home w HH/24 care/assist use [facility] and full HH services. Thank you for this referral. Courtney Clark PT
--- NOTE | 2020-01-02 08:30 | NUR ---
0800 AM ASSESSMENT COMPLETE. PT UP IN CHAIR AT BEDSIDE. SHE DENIES C/O AT THIS TIME. CALL LIGHT IS WITHIN REACH. WILL CONTINUE TO [place].
--- NOTE | 2020-01-02 11:24 | NUR ---
Faxed new home health order to [facility]
[2020-01-02 12:00] VITALS: BP 144/51
--- NOTE | 2020-01-02 12:18 | NUR ---
Discussed discharge planning with Dr. Gordillo. Patient could be possibly discharged today.
--- NOTE | 2020-01-02 12:22 | NUR ---
Received call from [facility]. They do not take patient's insurance. Discussed with patient. When provided with a list of agencies she chose [facility]. Faxed referral to [facility].
--- NOTE | 2020-01-02 14:12 | NUR ---
NORCO GIVEN FOR C/O BACK PAIN. RATES 6/10 ON PAIN SCALE. WILL MONITOR.
--- NOTE | 2020-01-02 15:15 | NUR ---
AVTAR EFFECTIVE PER PT.
[2020-01-02 16:00] VITALS: BP 131/51
--- NOTE | 2020-01-02 19:28 | NUR ---
PT AWAKE SITTING UP IN CHAIR. DENIES ANY NEEDS AT PRESENT TIME. WILL MONITOR. CALL LIGHT IN REACH. BODY ALARM INTACT.
[2020-01-02 20:00] VITALS: BP 123/59
--- NOTE | 2020-01-02 20:47 | NUR ---
PT ASSISTED UP OUT OF CHAIR BACK INTO BED WITH ASSIST X2. PT IS A MAX ASSIST. PT VERY WEAK AND UNABLE TO BEAR HARDLY ANY WEIGHT. PT STATES SHE HAS FULL INTENTIONS TO RETURN TO HER HOME WHERE SHE LIVES WITH HER . STATES SHE HAS VISITING NURSES COME "A FEW TIMES A WEEK." RN ENCOURAGED LEG EXERCISES TOLERATED WHILE IN BED. PT ALSO REQUESTED AND RECEIVED PO NORCO PER PRN ORDER FOR C/O "ALL OVER" PAIN RATED 7/10. WILL MONITOR. CALL LIGHT IN REACH. BED ALARM INTACT.
--- NOTE | 2020-01-02 21:40 | NUR ---
EARLIER NORCO EFFECTIVE PER PT. WILL MONITOR. CALL LIGHT IN REACH. BED ALARM INTACT.
[2020-01-03] VITALS: BP 136/53
--- NOTE | 2020-01-03 04:06 | NUR ---
PT ASLEEP IN BED. RESPIRATIONS EASY. NO S/S OF DISTRESS NOTED. WILL MONITOR. CALL LIGHT IN REACH.
[2020-01-03 08:00] VITALS: BP 151/61
--- NOTE | 2020-01-03 08:15 | NUR ---
PT SITTING UP IN RECLINER CHAIR. BREAKFAST TRAY AT BEDSIDE. NO VOICED COMPLAINTS AT THIS TIME. RESPIRATIONS EASY, REGULAR ON RA. WILL MONITOR. VSS. CALL LIGHT WITHN REACH.
--- NOTE | 2020-01-03 08:30 | NUR ---
Banana Loader in to see patient. No new needs or request at this time. When medically stable she will be discharged to home with [facility].
--- NOTE | 2020-01-03 09:00 | NUR ---
PHYSICAL THERAPY Patient seen this am 1:1 for therapy visit and was sitting up in bedside chair upon therapist arrival. Patient identified by name / and reports generalized global weakness, with multiple areas of increased bruising from recent fall at home. OT water quality assistant was present for observation only thi session as patient transfers sit to stand from low chair surface, MIN A x 2. Patient ambulates with use of wh walker, 15'x 2 to bathroom, CGA, demonstrating slow, "waddling" gait pattern and unsteady step sequence during 90/180 turns. Patient returned to bedside chair with increased fatigue and needed several v/c's for encouragment, increased stride and walker safety / navigation to complete all treatment. Patient remained in chair with call light, tray table, telephone and body alarm for safety. Will continue per POC as tolerated, total treatment time 16 minutes. Bruno Carson, TRAINING MGR
--- NOTE | 2020-01-03 09:16 | NUR ---
OT NOTE Pt was seen this A.M. 1:1 for 16 minute OT session. Upon arrival pt was supine in bed. Pt identified by name and and had no complaints at this time. While sitting requested for pt conor B socks, pt was initally unable to complete. Educated pt on compensatory technique of bringing her leg up to her knee and was then able to complete with Stephanie for inital start over her toes. Sit to stand then completed from chair level with Stephanie and use of w/w for UE support. Functional mobility was then completed to the bathroom with CGA and occasional verbal prompts for walker safety. There she transferred on to standard commode with CGA and off with Stephanie and use of grab bar for UE support. Clothing management completed with maxA due to having several LOB while standing without UE support that required min-modA to correct. Functional mobility was then completed back to the recliner with CGA and use of w/w with poor carry over of walker safety. Throughout entire session pt required verbal prompts for relaxation techniques due to being very fearful of falling. Pt was left sitting upright in the recliner with call light in hand, tray table in place, and body alarm activated for safety. Continue with rec D/C plan to SNF. KAREN Sanchez/[place]
[2020-01-03 12:00] VITALS: BP 131/45
--- NOTE | 2020-01-03 15:31 | NUR ---
IN TO SEE PATIENT.
[2020-01-03] MEDS ORDERED: CIPROFLOXACIN500 M4 PO (15:44)
[2020-01-03 16:00] VITALS: BP 133/63
--- NOTE | 2020-01-03 17:07 | NUR ---
SPOKE TO PATIENT'S REGARDING DISCHARGE. WILL BE HERE AROUND 6:30 THIS EVENING TO TRANSPORT PATIENT HOME.
--- NOTE | 2020-01-03 18:30 | NUR ---
PT REFUSED DISCHARGE PHOTO.
--- NOTE | 2020-01-03 18:39 | NUR ---
Discharge instructions reviewed with patient/family. Patient receptive and verbalizes understanding. Follow-up care arranged. Written instructions given to patient/family. [facility] [employer].
--- NOTE | 2020-01-04 07:38 | NUR ---
OCCUPATIONAL THERAPY CO-SIGN I approve of the Occupational Therapy notes written above. COLEMAN LITTLEJOHN, OTR/K
--- NOTE | 2020-01-04 07:46 | NUR ---
PHYSICAL THERAPY CO-SIGN I approve of the Physical Therapy notes written above. Courtney Clark PT
--- NOTE | 2020-01-05 07:28 | NUR ---
Faxed discharge summary and instructions to [facility]
== END 2020-01-03 18:39 | disposition home or self-care (01) | DRG 281 ==
LOC: ED 21:05 → 4E 12-30 00:06 → ICCU 12-30 00:06 → EDHOLD 12-30 00:06 → ICCU 12-30 00:15 → 4E 01-01 18:17
PROVIDERS: Emergency Medicine Emergency Medical Services; Internal Medicine; ADMIT Internal Medicine
DX: I21.4 Non-ST elevation (NSTEMI) myocardial infarction (principal); I50.32 Chronic diastolic (congestive) heart failure; E44.0 Moderate protein-calorie malnutrition; N39.0 Urinary tract infection, site not specified; D84.9 Immunodeficiency, unspecified; I11.0 Hypertensive heart disease with heart failure; R73.9 Hyperglycemia, unspecified; M06.9 Rheumatoid arthritis, unspecified; E53.8 Deficiency of other specified B group vitamins; F41.9 Anxiety disorder, unspecified; E66.01 Morbid (severe) obesity due to excess calories; D69.6 Thrombocytopenia, unspecified; B96.20 Unspecified Escherichia coli [E. coli] as the cause of diseases classified elsewhere; K21.9 Gastro-esophageal reflux disease without esophagitis; G25.81 Restless legs syndrome; I48.0 Paroxysmal atrial fibrillation; M81.0 Age-related osteoporosis without current pathological fracture; T45.1X5A Adverse effect of antineoplastic and immunosuppressive drugs, initial encounter; T39.4X5A Adverse effect of antirheumatics, not elsewhere classified, initial encounter; Y92.89 Other specified places as the place of occurrence of the external cause; Z68.32 Body mass index [BMI] 32.0-32.9, adult; Z88.0 Allergy status to penicillin; Z88.2 Allergy status to sulfonamides; Z88.1 Allergy status to other antibiotic agents; Z79.82 Long term (current) use of aspirin; Z79.899 Other long term (current) drug therapy; Z90.49 Acquired absence of other specified parts of digestive tract; Z90.710 Acquired absence of both cervix and uterus; Z96.651 Presence of right artificial knee joint; Z82.49 Family history of ischemic heart disease and other diseases of the circulatory system; Z82.61 Family history of arthritis

== ENCOUNTER → 2020-05-13 | Outpatient (CLI) | payer MEDICARE ==
[~2020-05-13] MED LIST changes: +ASPIRIN ADULT L81 M1 PO; +CIPROFLOXACIN500 M4 PO; +DONEPEZIL HCL10 MG PO
[2020-05-13 12:22] LABS: ALBUMIN 3.2 gm/dl (3.1-4.5); CHLORIDE 106 mmol/L (98-107); POTASSIUM 4.2 mmol/L (3.5-5.1); SODIUM 135 mmol/L (136-145)
[2020-05-13 12:28] LABS: ALKALINE PHOSPHATASE 111 U/L (45-117); BUN 18 mg/dl (7-24); CREATININE 0.55 mg/dL (0.55-1.02); SGOT/AST 15 IU/L (3-35); SGPT/ALT 7 U/L (12-78)
== END | disposition home or self-care (01) ==
LOC: LAB 11:06
PROVIDERS: ATTEND Physician Assistant
DX: M05.79 Rheumatoid arthritis with rheumatoid factor of multiple sites without organ or systems involvement (principal); I10 Essential (primary) hypertension

== ENCOUNTER → 2020-05-14 | Outpatient (CLI) | payer MEDICARE ==
[2020-05-14 10:57] LABS: BASO % 0.5 % (0.0-1.0); EOS # 0.1 10*3/uL (0.0-0.4); EOS % 1.6 % (1.0-4.0); LYMPH # 0.4 10*3/uL (1.3-4.4); LYMPH % 10.9 % (27.0-41.0); MEAN CELL VOLUME 89.7 fl (81.0-99.0); MEAN CORPUSCULAR HGB 28.4 pg (27.0-31.0); MEAN CORPUSCULAR HGB CONC 31.7 g/dl (33.0-37.0); MONO # 0.5 10*3/uL (0.1-1.0); MONO % 13.5 % (3.0-9.0); NEUT # 2.8 10*3/uL (2.3-7.9); NEUT % 72.7 % (47.0-73.0); PLATELET COUNT AUTOMATED 70 10*3/uL (130-400); RED BLOOD COUNT 4.68 10*6/uL (4.10-5.10); RED CELL DISTRI WIDTH 14.4 % (0-14.5); WHITE BLOOD COUNT 3.9 10*3/uL (4.8-10.8)
== END | disposition home or self-care (01) ==
LOC: LAB 05:44
PROVIDERS: ATTEND Physician Assistant
DX: M05.79 Rheumatoid arthritis with rheumatoid factor of multiple sites without organ or systems involvement (principal); I10 Essential (primary) hypertension

== ENCOUNTER → 2020-09-16 | Outpatient (CLI) | payer MEDICARE ==
[2020-09-16 14:06] LABS: BASO % 0.4 % (0.0-1.0); EOS # 0.1 10*3/uL (0.0-0.4); EOS % 0.9 % (1.0-4.0); HEMATOCRIT 42.6 % (37.0-47.0); LYMPH # 0.7 10*3/uL (1.3-4.4); LYMPH % 11.8 % (27.0-41.0); MEAN CORPUSCULAR HGB 28.4 pg (27.0-31.0); MEAN CORPUSCULAR HGB CONC 31.2 g/dl (33.0-37.0); MEAN PLATELET VOLUME 13.3 fl (9.6-12.3); MONO # 0.7 10*3/uL (0.1-1.0); MONO % 12.5 % (3.0-9.0); NEUT # 4.2 10*3/uL (2.3-7.9); NEUT % 73.5 % (47.0-73.0); PLATELET COUNT AUTOMATED 98 10*3/uL (130-400); RED BLOOD COUNT 4.68 10*6/uL (4.10-5.10); RED CELL DISTRI WIDTH 14.3 % (0-14.5); WHITE BLOOD COUNT 5.7 10*3/uL (4.8-10.8)
[2020-09-16 14:26] LABS: ALKALINE PHOSPHATASE 83 U/L (45-117); BUN 19 mg/dl (7-24); CHLORIDE 109 mmol/L (98-107); CREATININE 0.61 mg/dL (0.55-1.02); SGOT/AST 12 IU/L (3-35); SGPT/ALT 9 U/L (12-78); SODIUM 138 mmol/L (136-145)
== END | disposition home or self-care (01) ==
LOC: LAB 13:44
PROVIDERS: ATTEND Internal Medicine Rheumatology
DX: M05.79 Rheumatoid arthritis with rheumatoid factor of multiple sites without organ or systems involvement (principal); I10 Essential (primary) hypertension

== ENCOUNTER → 2020-10-17 | Outpatient (CLI) | payer MEDICARE ==
[2020-10-17 16:19] LABS: BASO % 0.3 % (0.0-1.0); EOS # 0.1 10*3/uL (0.0-0.4); EOS % 1.1 % (1.0-4.0); HEMATOCRIT 43.9 % (37.0-47.0); LYMPH # 0.6 10*3/uL (1.3-4.4); LYMPH % 8.4 % (27.0-41.0); MEAN CELL VOLUME 90.5 fl (81.0-99.0); MEAN CORPUSCULAR HGB 29.3 pg (27.0-31.0); MEAN CORPUSCULAR HGB CONC 32.3 g/dl (33.0-37.0); MONO % 15.5 % (3.0-9.0); NEUT # 4.8 10*3/uL (2.3-7.9); NEUT % 73.8 % (47.0-73.0); PLATELET COUNT AUTOMATED 87 10*3/uL (130-400); RED BLOOD COUNT 4.85 10*6/uL (4.10-5.10); RED CELL DISTRI WIDTH 15.5 % (0-14.5); WHITE BLOOD COUNT 6.6 10*3/uL (4.8-10.8)
[2020-10-19 03:06] LABS: FACTOR VIII ACTIVITY 168 % (56-140); VON WILLEBRAND FACTOR AG 323 % (50-200)
[2020-10-19 06:07] LABS: VON WILLEBRAND ACTIVITY 261 % (50-200)
== END | disposition home or self-care (01) ==
LOC: LAB 15:51
PROVIDERS: ATTEND Internal Medicine
DX: D69.6 Thrombocytopenia, unspecified (principal); R58 Hemorrhage, not elsewhere classified

== ENCOUNTER → 2020-10-18 | Outpatient (CLI) | payer MEDICARE | END | disposition home or self-care (01) | LOC: LAB 02:08 | PROVIDERS: ATTEND Internal Medicine | DX: D69.6 Thrombocytopenia, unspecified (principal); R58 Hemorrhage, not elsewhere classified ==

== ENCOUNTER 2021-02-12 18:26 | Inpatient (IN) | payer MEDICARE ==
[~2021-02-12] VITALS: Ht 152.4 cm; Wt 84.1 kg
[~2021-02-12 18:26] MED LIST changes: +'KLONOPIN0.5 MG PO; +CIPRO500 MG PO; +HYDROXYZINE HCL25 MG PO; +NAMENDA10 MG PO; +NYSTOP60 GM T
[2021-02-12 18:38] VITALS: BP 144/65
[2021-02-12 19:23] LABS: BASO % 0.3 % (0.0-1.0); EOS # 0.1 10*3/uL (0.0-0.4); EOS % 1.7 % (1.0-4.0); HEMATOCRIT 43.8 % (37.0-47.0); LYMPH # 0.8 10*3/uL (1.3-4.4); LYMPH % 10.9 % (27.0-41.0); MEAN CELL VOLUME 91.8 fl (81.0-99.0); MEAN CORPUSCULAR HGB 29.4 pg (27.0-31.0); MEAN PLATELET VOLUME 13.2 fl (9.6-12.3); MONO % 13.7 % (3.0-9.0); NEUT # 5.1 10*3/uL (2.3-7.9); NEUT % 72.7 % (47.0-73.0); PLATELET COUNT AUTOMATED 87 10*3/uL (130-400); RED BLOOD COUNT 4.77 10*6/uL (4.10-5.10); WHITE BLOOD COUNT 7.1 10*3/uL (4.8-10.8)
[2021-02-12 19:38] LABS: ALBUMIN 2.9 gm/dl (3.1-4.5); ALKALINE PHOSPHATASE 89 U/L (45-117); BUN 17 mg/dl (7-24); CHLORIDE 112 mmol/L (98-107); CREATININE 0.48 mg/dL (0.55-1.02); POTASSIUM 3.8 mmol/L (3.5-5.1); SGOT/AST 37 IU/L (3-35); SGPT/ALT 8 U/L (12-78); SODIUM 137 mmol/L (136-145); TOTAL PROTEIN 6.4 gm/dL (6.4-8.2)
[2021-02-12 19:41] LABS: TROPONIN I < 0.015 ng/ml (<0.045)
[2021-02-12 19:48] VITALS: BP 137/52
[2021-02-12 20:30] VITALS: BP 134/58
[2021-02-12 21:00] VITALS: BP 147/49
[2021-02-12 22:00] VITALS: BP 119/65
[2021-02-12 22:25] VITALS: BP 144/45
[2021-02-13 06:19] LABS: BASO % 0.6 % (0.0-1.0); EOS # 0.1 10*3/uL (0.0-0.4); EOS % 2.2 % (1.0-4.0); HEMATOCRIT 42.8 % (37.0-47.0); LYMPH # 0.7 10*3/uL (1.3-4.4); LYMPH % 15.1 % (27.0-41.0); MEAN CELL VOLUME 91.3 fl (81.0-99.0); MEAN CORPUSCULAR HGB CONC 31.8 g/dl (33.0-37.0); MONO # 0.7 10*3/uL (0.1-1.0); MONO % 14.9 % (3.0-9.0); NEUT # 3.3 10*3/uL (2.3-7.9); NEUT % 66.2 % (47.0-73.0); PLATELET COUNT AUTOMATED 72 10*3/uL (130-400); RED BLOOD COUNT 4.69 10*6/uL (4.10-5.10); RED CELL DISTRI WIDTH 13.9 % (0-14.5); WHITE BLOOD COUNT 4.9 10*3/uL (4.8-10.8)
[2021-02-13 06:21] LABS: ALBUMIN 2.8 gm/dl (3.1-4.5); ALKALINE PHOSPHATASE 86 U/L (45-117); BUN 19 mg/dl (7-24); CHLORIDE 111 mmol/L (98-107); CREATININE 0.46 mg/dL (0.55-1.02); POTASSIUM 3.7 mmol/L (3.5-5.1); SGOT/AST 31 IU/L (3-35); SGPT/ALT 14 U/L (12-78); SODIUM 137 mmol/L (136-145)
[2021-02-13 08:00] VITALS: BP 154/80
[2021-02-13 12:00] VITALS: BP 120/78; BP 134/50
[2021-02-13 16:00] VITALS: BP 136/58
[2021-02-13 16:01] LABS: BILIRUBIN Negative (Negative); BLOOD 3+ (Negative); CLARITY Clear (Clear); COLOR Yellow (Yellow); GLUCOSE 2+ (Negative); KETONE Trace (Negative); LEUKO ESTERASE Negative (Negative); NITRITE Negative (Negative); PH 5.5 (4.5-8.0); SPECIFIC GRAVITY 1.025 (1.001-1.030)
[2021-02-13 16:11] LABS: BACTERIA 2+; RBC 31-40 rbc/hpf (0-2)
[2021-02-13 20:00] VITALS: BP 140/50
[2021-02-14] VITALS: BP 122/44
[2021-02-14 08:00] VITALS: BP 156/72
[2021-02-14 09:37] LABS: BASO % 0.4 % (0.0-1.0); EOS # 0.1 10*3/uL (0.0-0.4); EOS % 1.3 % (1.0-4.0); HEMATOCRIT 44.5 % (37.0-47.0); LYMPH # 0.4 10*3/uL (1.3-4.4); MEAN CELL VOLUME 92.1 fl (81.0-99.0); MEAN CORPUSCULAR HGB CONC 31.5 g/dl (33.0-37.0); MEAN PLATELET VOLUME 13.5 fl (9.6-12.3); MONO # 0.4 10*3/uL (0.1-1.0); MONO % 8.5 % (3.0-9.0); NEUT # 3.7 10*3/uL (2.3-7.9); NEUT % 79.9 % (47.0-73.0); PLATELET COUNT AUTOMATED 71 10*3/uL (130-400); RED BLOOD COUNT 4.83 10*6/uL (4.10-5.10); RED CELL DISTRI WIDTH 13.5 % (0-14.5); WHITE BLOOD COUNT 4.6 10*3/uL (4.8-10.8)
[2021-02-14 10:02] LABS: BUN 16 mg/dl (7-24); CHLORIDE 110 mmol/L (98-107); CREATININE 0.63 mg/dL (0.55-1.02); POTASSIUM 3.6 mmol/L (3.5-5.1); SODIUM 135 mmol/L (136-145)
[2021-02-14 12:00] VITALS: BP 154/78
[2021-02-14 15:44] VITALS: BP 150/66
[2021-02-14 20:00] VITALS: BP 139/64
[2021-02-15] VITALS: BP 124/50
[2021-02-15 05:52] LABS: BASO % 0.4 % (0.0-1.0); EOS # 0.1 10*3/uL (0.0-0.4); EOS % 1.8 % (1.0-4.0); LYMPH # 0.6 10*3/uL (1.3-4.4); LYMPH % 11.7 % (27.0-41.0); MEAN CELL VOLUME 90.9 fl (81.0-99.0); MONO # 0.8 10*3/uL (0.1-1.0); MONO % 15.8 % (3.0-9.0); NEUT # 3.5 10*3/uL (2.3-7.9); NEUT % 69.5 % (47.0-73.0); PLATELET COUNT AUTOMATED 69 10*3/uL (130-400); RED BLOOD COUNT 4.51 10*6/uL (4.10-5.10); RED CELL DISTRI WIDTH 13.4 % (0-14.5); WHITE BLOOD COUNT 5.1 10*3/uL (4.8-10.8)
[2021-02-15 06:14] LABS: BUN 12 mg/dl (7-24); CHLORIDE 111 mmol/L (98-107); POTASSIUM 3.8 mmol/L (3.5-5.1); SODIUM 136 mmol/L (136-145)
[2021-02-15 08:00] VITALS: BP 137/80
[2021-02-15 12:00] VITALS: BP 127/84
[2021-02-15 16:00] VITALS: BP 154/64
[2021-02-15 20:00] VITALS: BP 139/57
[2021-02-16] VITALS: BP 147/74
[2021-02-16 08:00] VITALS: BP 148/72
[2021-02-16 12:00] VITALS: BP 148/82
[2021-02-16 16:00] VITALS: BP 120/64
[2021-02-16 20:00] VITALS: BP 136/62
[2021-02-17] VITALS: BP 120/50
[2021-02-17 06:18] LABS: BASO % 0.4 % (0.0-1.0); EOS # 0.1 10*3/uL (0.0-0.4); EOS % 2.5 % (1.0-4.0); HEMATOCRIT 43.2 % (37.0-47.0); LYMPH # 0.7 10*3/uL (1.3-4.4); LYMPH % 14.2 % (27.0-41.0); MEAN CELL VOLUME 90.9 fl (81.0-99.0); MEAN CORPUSCULAR HGB 28.8 pg (27.0-31.0); MEAN CORPUSCULAR HGB CONC 31.7 g/dl (33.0-37.0); MONO # 0.9 10*3/uL (0.1-1.0); MONO % 18.2 % (3.0-9.0); NEUT % 63.4 % (47.0-73.0); PLATELET COUNT AUTOMATED 70 10*3/uL (130-400); RED BLOOD COUNT 4.75 10*6/uL (4.10-5.10); RED CELL DISTRI WIDTH 13.5 % (0-14.5); WHITE BLOOD COUNT 4.8 10*3/uL (4.8-10.8)
[2021-02-17 06:51] LABS: BUN 16 mg/dl (7-24); CHLORIDE 109 mmol/L (98-107); CREATININE 0.53 mg/dL (0.55-1.02); POTASSIUM 3.9 mmol/L (3.5-5.1); SODIUM 138 mmol/L (136-145)
[2021-02-17 08:00] VITALS: BP 161/58
[2021-02-17 12:00] VITALS: BP 133/55
[2021-02-17 16:00] VITALS: BP 143/44
[2021-02-17 20:00] VITALS: BP 143/52
[2021-02-18] VITALS: BP 129/63
[2021-02-18 08:00] VITALS: BP 145/76
[2021-02-18 12:00] VITALS: BP 165/84
[2021-02-18] MEDS ORDERED: DOXYCYCLINE MO100 M1 PO (15:58)
[2021-02-18] MEDS ORDERED: CIPROFLOXACIN500 M4 PO (15:58)
[2021-02-18 16:00] VITALS: BP 132/56
== END 2021-02-18 18:02 | DRG 690 ==
LOC: ED 18:26 → 5E 21:38 → EDHOLD 21:38 → 5E 22:12
PROVIDERS: Hospitalist; Physician Assistant; Social Worker Clinical; ADMIT Internal Medicine; ATTEND Internal Medicine
DX: N39.0 Urinary tract infection, site not specified (principal); E44.0 Moderate protein-calorie malnutrition; D69.3 Immune thrombocytopenic purpura; D84.9 Immunodeficiency, unspecified; M06.9 Rheumatoid arthritis, unspecified; R54 Age-related physical debility; M81.0 Age-related osteoporosis without current pathological fracture; R26.2 Difficulty in walking, not elsewhere classified; I50.9 Heart failure, unspecified; K21.9 Gastro-esophageal reflux disease without esophagitis; G20 Parkinson's disease; E87.8 Other disorders of electrolyte and fluid balance, not elsewhere classified; R74.01 Elevation of levels of liver transaminase levels; F41.9 Anxiety disorder, unspecified; G25.81 Restless legs syndrome; F02.80 Dementia in other diseases classified elsewhere, unspecified severity, without behavioral disturbance, psychotic disturbance, mood disturbance, and anxiety; I11.0 Hypertensive heart disease with heart failure; E11.65 Type 2 diabetes mellitus with hyperglycemia; S70.02XA Contusion of left hip, initial encounter; Z96.653 Presence of artificial knee joint, bilateral; G43.909 Migraine, unspecified, not intractable, without status migrainosus; E11.40 Type 2 diabetes mellitus with diabetic neuropathy, unspecified; I48.0 Paroxysmal atrial fibrillation; B96.20 Unspecified Escherichia coli [E. coli] as the cause of diseases classified elsewhere; B95.62 Methicillin resistant Staphylococcus aureus infection as the cause of diseases classified elsewhere; I72.8 Aneurysm of other specified arteries; N20.0 Calculus of kidney; Z20.822 Contact with and (suspected) exposure to COVID-19; M43.16 Spondylolisthesis, lumbar region; W07.XXXA Fall from chair, initial encounter; Y93.89 Activity, other specified; Y92.098 Other place in other non-institutional residence as the place of occurrence of the external cause; Y99.8 Other external cause status; Z88.8 Allergy status to other drugs, medicaments and biological substances; Z88.0 Allergy status to penicillin; Z88.2 Allergy status to sulfonamides; Z88.1 Allergy status to other antibiotic agents; Z91.011 Allergy to milk products; Z91.048 Other nonmedicinal substance allergy status; Z90.49 Acquired absence of other specified parts of digestive tract; Z90.711 Acquired absence of uterus with remaining cervical stump; Z83.3 Family history of diabetes mellitus; Z82.49 Family history of ischemic heart disease and other diseases of the circulatory system; Z84.89 Family history of other specified conditions; I25.2 Old myocardial infarction; Z79.899 Other long term (current) drug therapy; Z79.82 Long term (current) use of aspirin; Z68.36 Body mass index [BMI] 36.0-36.9, adult

== ENCOUNTER 2021-06-17 03:38 | Emergency (ER) | payer MEDICARE ==
[~2021-06-17 03:38] MED LIST changes: +DOXYCYCLINE MO100 M1 PO
[2021-06-17 03:42] VITALS: BP 118/103
[2021-06-17 04:14] LABS: MEAN CORPUSCULAR HGB 28.3 pg (27.0-31.0); MEAN CORPUSCULAR HGB CONC 31.1 g/dl (33.0-37.0); MEAN PLATELET VOLUME 13.7 fl (9.6-12.3); PLATELET COUNT AUTOMATED 168 10*3/uL (130-400); RED BLOOD COUNT 7.18 10*6/uL (4.10-5.10); RED CELL DISTRI WIDTH 16.2 % (0-14.5)
[2021-06-17 04:47] LABS: HEMATOCRIT 65.3 % (37.0-47.0); MEAN CELL VOLUME 90.9 fl (81.0-99.0)
[2021-06-17 04:50] LABS: ATYPICAL LYMPHS 4 % (0-0); PLATELET SUFFICIENCY NORMAL (NORMAL); TOTAL CELLS COUNTED 100 #CELLS
[2021-06-17 04:51] LABS: BURR CELLS FEW
[2021-06-17 05:08] LABS: ALBUMIN 3.3 gm/dl (3.1-4.5); CREATININE 1.64 mg/dL (0.55-1.02); TOTAL PROTEIN 7.6 gm/dL (6.4-8.2)
[2021-06-17 05:09] LABS: POTASSIUM 5.3 mmol/L (3.5-5.1)
== END 2021-06-17 07:26 ==
LOC: ED 03:38
PROVIDERS: Internal Medicine
DX: I46.9 Cardiac arrest, cause unspecified (principal); N17.9 Acute kidney failure, unspecified; E87.8 Other disorders of electrolyte and fluid balance, not elsewhere classified; E11.65 Type 2 diabetes mellitus with hyperglycemia; Z86.16 Personal history of COVID-19; Z88.0 Allergy status to penicillin; Z88.1 Allergy status to other antibiotic agents; Z88.8 Allergy status to other drugs, medicaments and biological substances; Z88.2 Allergy status to sulfonamides; Z79.899 Other long term (current) drug therapy